=== PATIENT | female | born 1940 | race African-American/Black ===

== ENCOUNTER 2016-05-22 09:42 | Inpatient (IN) ==
[2016-05-22] MEDS ORDERED: methylPREDNISolone 125 MG/2 ML VIAL IVP ONE (09:54)
[2016-05-22] MEDS ORDERED: Ipratropium/Albuterol Neb 3 ML IH ONE (09:54)
[2016-05-22] MEDS ORDERED: Nitroglycerin 0.4 MG TAB.SUBL SL PRN ×2 (10:03→16:47)
--- NOTE | 2016-05-22 10:10 | Emergency Department Note ---
Disposition Clinical Impression: CHF exacerbation Qualifiers: Congestive heart failure type: unspecified congestive heart failure type Qualified Code(s): I50.9 - Heart failure, unspecified Disposition: Admitted As Inpatient Condition: Fair General Adult HPI - General Stated complaint: MICHAEL Time Seen by Provider: 05/22/16 09:51 Source: patient, family Limitations: no limitations Nursing Notes Reviewed: Yes Vital Signs Reviewed: Yes - History of Present Illness HPI Narrative: Patient here for evaluation of shortness of breath. Patient's shortness of breath started several days ago and was acutely worse just prior to arrival. Patient presents tachycardic and tachypnic and antihypertensive - Being able to speak in partial sentences. Patient has a history of COPD but has also been admitted in the past for CHF. Patient has been on BiPAP for but is unsure why. Pain Scale: 0 - Related Data Home Medications Medication Instructions Recorded Confirmed Amlodipine [Norvasc] 2.5 mg PO DAILY 11/12/14 05/22/16 Cranberry Fruit Extract/Vit C [Azo 1 each PO DAILY 11/12/14 05/22/16 Cranberry Softgel] Docusate Sodium [Colace] 100 mg PO BID PRN 11/12/14 05/22/16 Ergocalciferol (VITAMIN D2) 50,000 unit PO QWEEK 11/12/14 05/22/16 [Drisdol (50,000 Unit)] Exenatide Microspheres [Bydureon] 2 mg SQ QWEEK 11/12/14 05/22/16 Insulin LISPRO [Humalog Kwikpen 2 - 15 unit SQ ACHS 11/12/14 05/22/16 U-200] Levothyroxine [Synthroid] 125 mcg PO DAILY 11/12/14 05/22/16 Nitroglycerin 0.4 mg SL Q5MIN PRN 11/12/14 05/22/16 Potassium Effervescent [Klyte] 25 meq PO BID 11/12/14 05/22/16 Rosuvastatin [Crestor] 40 mg PO HS 11/12/14 05/22/16 Saccharomyces Boulardii [Probiotic] 250 mg PO DAILY 11/12/14 05/22/16 Budesonide/Formoterol 160/4.5 2 puff IH BID 05/22/16 05/22/16 [Symbicort 160/4.5] Calcitriol [Rocaltrol] 0.25 mcg PO DAILY 05/22/16 05/22/16 Dasatinib [Sprycel] 70 mg PO DAILY 05/22/16 05/22/16 Ferrous Sulfate [Iron] 325 mg PO DAILY 05/22/16 05/22/16 Isosorbide MONOnitrate [Isosorbide 120 mg PO DAILY 05/22/16 05/22/16 Mononitrate ER] Losartan Potassium [Cozaar] 100 mg PO DAILY 05/22/16 05/22/16 Metformin HCl [Metformin HCl ER] 500 mg PO DAILY 05/22/16 05/22/16 Metoprolol XL (24 HR) Succ [Toprol 100 mg PO BID 05/22/16 05/22/16 XL] Montelukast [Singulair] 10 mg PO DAILY 05/22/16 05/22/16 Ranitidine HCl [Heartburn Relief] 150 mg PO DAILY PRN 05/22/16 05/22/16 Rivaroxaban [Xarelto] 15 mg PO DAILY 05/22/16 05/22/16 Selenium 200 mcg PO DAILY 05/22/16 05/22/16 Previous Rx's Medication Instructions Recorded Furosemide [Lasix] 40 mg PO DAILY PRN #30 tablet 02/15/15 Folic Acid 1 mg PO DAILY #90 tablet 11/24/15 Acyclovir [Zovirax] 1 tab PO BID #180 tablet 12/24/15 Sucralfate [Carafate] 1 gm PO TID #90 tablet 04/12/16 Loperamide [Imodium] 2 mg PO BID #60 capsule 05/04/16 Allergies Allergy/AdvReac Type Severity Reaction Status Date / Time No Known Allergies Allergy Verified 05/22/16 09:53 All systems ED: reviewed and negative except as stated. Constitutional: Denies: fever, chills Cardiovascular: Reports: dyspnea on exertion. Denies: chest pain Respiratory: Reports: cough, dyspnea, wheezes Gastrointestinal: Denies: abdominal pain, nausea, vomiting Genitourinary: Denies: urgency, dysuria Musculoskeletal: Denies: back pain Integumentary: Denies: rash, abrasion, lesions Endocrine: Reports: fatigue Past Medical History - Past Medical History Medical history: Reports: asthma, cancer, CHF, COPD, diabetes, hyperlipidemia, hypertension, pulmonary embolus, other Surgical history: Reports: cholecystectomy, other Psychiatric history: Reports: anxiety, depression - Social History Smoking Status: Former smoker Alcohol use: Reports: none Drug use: Reports: none Physical Exam - General Limitations: no limitations General appearance: alert, in distress - Head Head exam: atraumatic, normocephalic - Eye Eye exam: Present: normal appearance - ENT ENT exam: normal exam, normal oropharynx - Neck Neck exam: Present: normal inspection, full ROM - Chest Chest inspection: Present: normal inspection. Absent: symmetric chest wall rise - Respiratory Respiratory exam: Present: normal lung sounds bilaterally, respiratory distress , wheezes - Cardiovascular Cardiovascular exam: Present: regular rate, normal rhythm - Abdominal Exam Abdominal exam: Present: soft, Non-Tender - Extremities Exam Extremities exam: Present: normal inspection. Absent: tenderness - Neurological Exam Neurological exam: Present: alert, oriented X3 - Psychiatric Psychiatric exam: Present: normal affect, normal mood - Skin Skin exam: Present: warm, dry Course Course Narrative: BiPAP and COPD medications ordered. Bedside chest x-ray shows diffuse interstitial edema. Sublingual nitroglycerin given. Will evaluate for possible need for nitro drip. - Reevaluation(s) Reevaluation #1: Bedside x-ray showing CHF. Patient's BiPAP and nitrates have improved symptoms as well as blood pressure. We will continue to watch. - Consultations Consultation #1: Discussed with Dr. Hutchinson. Pt accepted for admission. Vital Signs Temperature 0 F L 05/22/16 09:53 Pulse Rate 97 05/22/16 09:53 Respiratory Rate 32 05/22/16 09:53 Blood Pressure 198/90 05/22/16 09:53 O2 Sat by Pulse Oximetry 92 L 05/22/16 09:53 Temperature 98.0 F 05/22/16 13:16 Pulse Rate 98 05/22/16 13:16 Respiratory Rate 24 05/22/16 13:57 Blood Pressure 181/80 05/22/16 13:16 O2 Sat by Pulse Oximetry 92 L 05/22/16 13:57 Oxygen Delivery Oxygen Delivery Nasal Cannula Medical Decision Making - Medical Records Medical records reviewed: Yes I reviewed the patient's medical records. - Lab Data Lab results reviewed: Yes I reviewed the patient's lab results. Result diagrams: 05/22/16 11:15 05/22/16 11:15 Lab Results 05/22/16 05/22/16 05/22/16 Range/Units 11:15 11:15 11:15 WBC 8.3 D (4.3-11.1) K/mcL RBC 4.40 (3.82-4.97) M/mcL Hgb 12.0 (11.5-15.4) g/dL Hct 38.4 (35.3-44.9) % MCV 87.3 (83.0-100.0) fL MCH 27.3 L (28.0-33.3) pg MCHC 31.3 L (31.6-35.5) g/dL RDW 20.5 H (11.5-14.5) % Plt Count 218 (140-400) K/mcL MPV 9.8 (9.4-12.4) fL Immature Gran % 0.2 (0-4) % Seg Neutrophils % 78.1 % Lymphocytes % 12.0 % Monocytes % 8.4 % Eosinophils % 0.8 % Basophils % 0.5 % Neutrophils # 6.5 (1.6-8.9) K/mcL Lymphocytes # 1.0 (0.6-4.6) K/mcL Monocytes # 0.7 (0.0-1.3) K/mcL Eosinophils # 0.1 (0.0-0.6) K/mcL Basophils # 0.0 (0.0-0.2) K/mcL Immature Plt Fraction 5.3 (1.1-6.1) % Sodium 139 (136-145) mEq/L Potassium 3.4 L (3.5-4.5) mEq/L Chloride 106 (98-109) mEq/L Carbon Dioxide 23 (19-29) mEq/L BUN 16 (7-20) mg/dL Creatinine 0.86 (0.57-1.11) mg/dL Est GFR ( Amer) > 60 (> 60) Est GFR (Non-Af Amer) > 60 (> 60) BUN/Creatinine Ratio 19 (6-26) Glucose 176 H (70-99) mg/dL Calculated Osmolality 293 (280-300) Calcium 10.2 (8.6-10.8) mg/dL Troponin I 0.01 (0-0.03) ng/mL B-Natriuretic Peptide (0-100) pg/mL 05/22/16 Range/Units 11:15 WBC (4.3-11.1) K/mcL RBC (3.82-4.97) M/mcL Hgb (11.5-15.4) g/dL Hct (35.3-44.9) % MCV (83.0-100.0) fL MCH (28.0-33.3) pg MCHC (31.6-35.5) g/dL RDW (11.5-14.5) % Plt Count (140-400) K/mcL MPV (9.4-12.4) fL Immature Gran % (0-4) % Seg Neutrophils % % Lymphocytes % % Monocytes % % Eosinophils % % Basophils % % Neutrophils # (1.6-8.9) K/mcL Lymphocytes # (0.6-4.6) K/mcL Monocytes # (0.0-1.3) K/mcL Eosinophils # (0.0-0.6) K/mcL Basophils # (0.0-0.2) K/mcL Immature Plt Fraction (1.1-6.1) % Sodium (136-145) mEq/L Potassium (3.5-4.5) mEq/L Chloride (98-109) mEq/L Carbon Dioxide (19-29) mEq/L BUN (7-20) mg/dL Creatinine (0.57-1.11) mg/dL Est GFR ( Amer) (> 60) Est GFR (Non-Af Amer) (> 60) BUN/Creatinine Ratio (6-26) Glucose (70-99) mg/dL Calculated Osmolality (280-300) Calcium (8.6-10.8) mg/dL Troponin I (0-0.03) ng/mL B-Natriuretic Peptide 165 H (0-100) pg/mL - Radiology Data Radiology results reviewed: Yes I reviewed the patient's radiology results. - EKG Data EKG #1 EKG attestation: Yes I reviewed and interpreted this EKG. EKG results narrative: EKG shows sinus rhythm with ventricular rate of 96. ID 180. QRS 102. QTC 399. Patient has no significant ST elevation or depression. No changes from . Attestation Statement - Attestation Attestation: I examined this patient and my medical decision-making was reviewed with the SALES LEADER/PA/Advanced Practice Nurse/Resident Physician. I agree with the documented findings, disposition and treatment plan as described except to the extent set forth below. Patient emergency Department difficulty in breathing. Patient has a history of COPD but states she has never felt this bad. On examination she is tachypneic. Using accessory muscles. Hypoxic. Plan. Patient's x-ray appears to be fluid overloaded. She is tolerating BiPAP at this time. Breathing more comfortably. Cardiac labs still pending. Patient will be admitted to medicine. IV Lasix given. 30 minutes of critical care exclusively of separate billable procedures.
[2016-05-22 11:22] LABS: Basophils % 0.5 %; Eosinophils # 0.1 K/mcL (0.0-0.6); Eosinophils % 0.8 %; Hematocrit 38.4 % (35.3-44.9); Immature Granulocytes % 0.2 % (0-4); Immature Platelets 5.3 % (1.1-6.1); Mean Corpuscular HGB Conc 31.3 g/dL (31.6-35.5); Mean Corpuscular Hemoglobin 27.3 pg (28.0-33.3); Mean Corpuscular Volume 87.3 fL (83.0-100.0); Mean Platelet Volume 9.8 fL (9.4-12.4); Monocytes # 0.7 K/mcL (0.0-1.3); Monocytes % 8.4 %; Neutrophils # 6.5 K/mcL (1.6-8.9); Platelet Count 218 K/mcL (140-400); Red Cell Distribution Width 20.5 % (11.5-14.5); Segmented Neutrophils % 78.1 %
[2016-05-22 11:33] LABS: BUN/Creatinine Ratio 19 (6-26); Blood Urea Nitrogen 16 mg/dL (7-20); Calcium 10.2 mg/dL (8.6-10.8); Carbon Dioxide 23 mEq/L (19-29); Chloride 106 mEq/L (98-109); Glucose 176 mg/dL (70-99); Osmolality,Calculated 293 (280-300); Potassium 3.4 mEq/L (3.5-4.5); Sodium 139 mEq/L (136-145); eGFR For African Americans > 60 (> 60); eGFR For Non-African Americans > 60 (> 60)
[2016-05-22] MEDS ORDERED: *HR* Morphine 2 MG/ML SYRINGE IVP PRN (16:44)
[2016-05-22] MEDS ORDERED: Naloxone 0.4 MG/ML INJ IVP PRN (16:44)
[2016-05-22] MEDS ORDERED: *HR* Dextrose 50 % in Water (Syg) 50 ML SYRINGE IVP PRN (16:54)
[2016-05-22] MEDS ORDERED: D5% in Water 1,000 ML IV PRN (16:54)
[2016-05-22] MEDS ORDERED: Dextrose Gel 15 GM PO PRN ×2 (16:54)
--- NOTE | 2016-05-22 16:58 | Internal Med History&Physical ---
Date of Encounter: 05/22/16 Time of Encounter: 16:57 Assessment and Plan (1) Community acquired pneumonia Current visit: No Status: Acute Possible CAP: - Blood cultures - IV Levofloxacin. - Repeat Xrays in 48 hours for possible improvement/worsening. - will treat as CAP (2) COPD (chronic obstructive pulmonary disease) Current visit: No Status: Chronic Admit as inpatient IV antibiotics IV steroids BDAs close monitoring. Qualifiers: COPD type: unspecified COPD Qualified Code(s): J44.9 - Chronic obstructive pulmonary disease, unspecified (3) Hypertension Current visit: No Status: Chronic will resume home meds close monitoring of blood pressure. will send 3 troponin to rule out cardiac event. Qualifiers: Hypertension type: essential hypertension Qualified Code(s): I10 - Essential (primary) hypertension (4) Diabetes Current visit: No Status: Chronic SCSI ACHS anticipate elevated blood sugar as she is on steroids. Qualifiers: Diabetes mellitus type: type 2 Diabetes mellitus complication status: without complication Diabetes mellitus intermediate accountant insulin use: unspecified jail insulin use status Qualified Code(s): E11.9 - Type 2 diabetes mellitus without complications (5) Pulmonary embolism Current visit: No Status: Acute On xarelto DVT prophylaxis: Xarelto Medicl decision making : risk of worsening as she has multiple risk factors. Qualifiers: Pulmonary embolism type: other Chronicity: unspecified Acute cor pulmonale presence: without acute cor pulmonale Qualified Code(s): I26.99 - Other pulmonary embolism without acute cor pulmonale Internal Medicine - H&P: HPI Chief complaint: SOB Admitted From: Emergency Dept Plans for Post Hospital Care: Home History of present illness: PCP: Dr Lane Brief PMH: asthma, cancer, CHF, COPD, diabetes, hyperlipidemia, hypertension, pulmonary embolus HPI: The patient has ongoing respiratory symptoms for more than one week. He is working towards her symptoms have gradually worsened. This morning she was unable to breath. She also has a cough along with mucopurulent expectoration. Patient claims that there is a change in her phlegm color. Patient denies chest pain dizziness abdominal pain. Patient came to emergency room as it was very difficult breath and she was unable to speak complete sentences. Workup in the ER: Patient was given a BiPAP. Exogenous was done. Basic labs were done. Patient improved with the initial management. Reason for admission: Acute decompensated congestive heart failure likely secondary to the bronchitis/pulmonary infection. Family history noncontributory Past Med Surg Social Fam HX - Past Medical History Medical history: asthma, cancer, CHF, COPD, diabetes, hyperlipidemia, hypertension, pulmonary embolus, other Psychiatric history: anxiety, depression - Past Surgical History Surgical History: cholecystectomy, other - Social History Smoking Status: Former smoker Packs per day: 1 Smokeless Tobacco Status: No Alcohol use: none Drug use: none - Family History Father History Unknown: Yes Hx Family Endocrine Disorder: Yes (father had diabetes) Internal Medicine - H&P: Meds Amlodipine [Norvasc] 2.5 mg PO DAILY 11/12/14 [History] Cranberry Fruit Extract/Vit C [Azo Cranberry Softgel] 1 each PO DAILY 11/12/14 [ History] Docusate Sodium [Colace] 100 mg PO BID PRN 11/12/14 [History] Ergocalciferol (VITAMIN D2) [Drisdol (50,000 Unit)] 50,000 unit PO QWEEK [History] Exenatide Microspheres [Bydureon] 2 mg SQ QWEEK 11/12/14 [History] Insulin LISPRO [Humalog Kwikpen U-200] 2 - 15 unit SQ ACHS 11/12/14 [History] Levothyroxine [Synthroid] 125 mcg PO DAILY 11/12/14 [History] Nitroglycerin 0.4 mg SL Q5MIN PRN 11/12/14 [History] Potassium Effervescent [Klyte] 25 meq PO BID 11/12/14 [History] Rosuvastatin [Crestor] 40 mg PO HS 11/12/14 [History] Saccharomyces Boulardii [Probiotic] 250 mg PO DAILY 11/12/14 [History] Furosemide [Lasix] 40 mg PO DAILY PRN #30 tablet 02/15/15 [Rx] Folic Acid 1 mg PO DAILY #90 tablet 11/24/15 [Rx] Acyclovir [Zovirax] 1 tab PO BID #180 tablet 12/24/15 [Rx] Sucralfate [Carafate] 1 gm PO TID #90 tablet 04/12/16 [Rx] Loperamide [Imodium] 2 mg PO BID #60 capsule 05/04/16 [Rx] Budesonide/Formoterol 160/4.5 [Symbicort 160/4.5] 2 puff IH BID 05/22/16 [ History] Calcitriol [Rocaltrol] 0.25 mcg PO DAILY 05/22/16 [History] Dasatinib [Sprycel] 70 mg PO DAILY 05/22/16 [History] Ferrous Sulfate [Iron] 325 mg PO DAILY 05/22/16 [History] Isosorbide MONOnitrate [Isosorbide Mononitrate ER] 120 mg PO DAILY 05/22/16 [ History] Losartan Potassium [Cozaar] 100 mg PO DAILY 05/22/16 [History] Metformin HCl [Metformin HCl ER] 500 mg PO DAILY 05/22/16 [History] Metoprolol XL (24 HR) Succ [Toprol XL] 100 mg PO BID 05/22/16 [History] Montelukast [Singulair] 10 mg PO DAILY 05/22/16 [History] Ranitidine HCl [Heartburn Relief] 150 mg PO DAILY PRN 05/22/16 [History] Rivaroxaban [Xarelto] 15 mg PO DAILY 05/22/16 [History] Selenium 200 mcg PO DAILY 05/22/16 [History] Allergies No Known Allergies Allergy (Verified 05/22/16 09:53) All Systems PM: A 10-system review of systems was performed and is negative for pertinent findings except as documented above in the HPI. - Constitutional Constitutional: no chills, no fever(s), no night sweats - EENT Eyes: no change in vision, no discharge, no pain, no photophobia Ears: no ear discharge, no ear pain, no tinnitus Nose, mouth and throat: no dysphagia, no nasal discharge, no neck pain, no sore throat - Cardiovascular Cardiovascular ROS IM: no chest pain, no diaphoresis, no dyspnea, no lightheadedness, no palpitations, no syncope - Respiratory Respiratory: cough, dyspnea, wheezing, excessive phlegm production - Gastrointestinal Gastrointestinal: no abdominal pain, no diarrhea, no hematemesis, no hematochezia, no melena, no nausea, no vomiting - Genitourinary Genitourinary: no change in urinary stream, no dysuria, no flank pain, no hematuria - Musculoskeletal Musculoskeletal ROS IM: no numbness, no tingling - Integumentary Integumentary IM: no rash, no unusual bruising - Neurological Neurological ROS: no confusion, no convulsions, no focal weakness, no numbness, no tingling, no tremor(s) - Hematologic/Lymphatic Hematologic/Lymphatic: no easy bruising - Constitutional Vitals: Temp Pulse Resp BP Pulse Ox 98.0 F 98 20 181/80 93 L 05/22/16 13:16 05/22/16 13:16 05/22/16 13:16 05/22/16 13:16 05/22/16 13:16 General appearance: Present: mild distress, A&O X 3, pleasant, answers questions appropriately - Head Head exam: Present: atraumatic, normocephalic - Eye Eye exam: Present: PERRL, conjuntiva pink, sclera anicteric Pupils: Present: PERRL - Neck Neck exam general surgery: Present: supple, trachea midline. Absent: lymphadenopathy - Respiratory Respiratory exam: Present: CTAB. Absent: accessory muscle use, rales, rhonchi, wheezes - Cardiovascular Cardiovascular exam: Present: RRR, +S1, +S2. Absent: diastolic murmur, gallop, rubs, systolic murmur - GI/Abdominal GI/Abdominal exam: Present: normal bowel sounds, soft, no peritoneal signs. Absent: distended, tenderness - Extremities Exam Extremities exam: Present: warm, radial pulses palpable and symetrical. Absent : calf tenderness, cyanotic, pedal edema - Neurological Exam Neurological exam: Present: CN II-XII intact, oriented X3, no focal deficits. Absent: pronater drift, facial droop, speech deficit - Skin Skin exam: Present: dry, intact Internal Med - H&P Results - Labs CBC & Chem 7: 05/22/16 11:15 05/22/16 11:15
[2016-05-22] MEDS ORDERED: INSULIN LISPRO SQ SCH (17:00)
[2016-05-22] MEDS ORDERED: Insulin LISPRO 300 UNITS/3 ML VIAL SQ ONE (17:52)
[2016-05-22] MEDS: Insulin LISPRO 300 UNITS/3 ML VIAL SQ SCH (17:56)
[2016-05-22] MEDS: Ipratropium/Albuterol Neb 3 ML IH SCH (20:01)
[2016-05-22] MEDS: Furosemide 40 MG/4 ML VIAL IVP SCH (20:13)
[2016-05-22] MEDS: Sucralfate 1 GM TABLET PO SCH (20:14)
[2016-05-22] MEDS: Levofloxacin 750 MG/150 ML 750 MG/150 ML BAG IVPB SCH (20:14)
[2016-05-22] MEDS: Metoprolol XL (24 HR) Succ 50 MG TAB.ER.24H PO SCH (20:14)
[2016-05-22] MEDS: Acyclovir 200 MG CAPSULE PO SCH (20:14)
[2016-05-22] MEDS: Potassium Effervescent 25 MEQ TABLET.EFF PO SCH (20:28)
[2016-05-22] MEDS: MethylPREDNISolone 40 MG/ML VIAL IVP SCH (23:38)
[2016-05-23] MEDS: Ipratropium/Albuterol Neb 3 ML IH SCH ×6 (00:17→20:56)
[2016-05-23] MEDS ORDERED: Acetaminophen 325 MG TABLET PO PRN ×2 (00:33→12:14)
[2016-05-23] MEDS: Acyclovir 200 MG CAPSULE PO SCH ×2 (07:42→20:43)
[2016-05-23] MEDS: Metoprolol XL (24 HR) Succ 50 MG TAB.ER.24H PO SCH ×2 (07:42→20:43)
[2016-05-23] MEDS: amLODIPine 5 MG TABLET PO SCH (07:43)
[2016-05-23] MEDS: *HR* Rivaroxaban 15 MG TABLET PO SCH (07:43)
[2016-05-23] MEDS: Isosorbide MONOnitrate (24 HR) 60 MG TAB.ER.24H PO SCH (07:43)
[2016-05-23] MEDS: MethylPREDNISolone 40 MG/ML VIAL IVP SCH ×3 (07:44→23:26)
[2016-05-23] MEDS: Furosemide 40 MG/4 ML VIAL IVP SCH ×2 (07:44→16:52)
[2016-05-23] MEDS: Insulin LISPRO 300 UNITS/3 ML VIAL SQ SCH ×4 (07:44→20:59)
[2016-05-23] MEDS: Sucralfate 1 GM TABLET PO SCH ×2 (07:44→17:01)
[2016-05-23] MEDS: Potassium Effervescent 25 MEQ TABLET.EFF PO SCH ×2 (07:45→20:43)
[2016-05-23] MEDS: Levofloxacin 750 MG/150 ML 750 MG/150 ML BAG IVPB SCH (07:45)
--- NOTE | 2016-05-23 08:06 | Internal Med Progress Note ---
<Reyes Hunt - Last Filed: 05/23/16 13:57> Date of Encounter: 05/23/16 Time of Encounter: 08:06 - Assessment and plan (1) Community acquired pneumonia Current Visit: No Status: Acute Assessment and plan: 05/23/16 Significant clinical improvement Continue antibiotics 05/22/16 Possible CAP: - Blood cultures - IV Levofloxacin. - Repeat Xrays in 48 hours for possible improvement/worsening. - will treat as CAP (2) COPD (chronic obstructive pulmonary disease) Current Visit: No Status: Chronic Assessment and plan: 05/23/16 O2 saturation stable Continue duo nebs/Solu-Medrol Continue monitor 05/22/16 Admit as inpatient IV antibiotics IV steroids BDAs close monitoring. Qualifiers: COPD type: unspecified COPD Qualified Code(s): J44.9 - Chronic obstructive pulmonary disease, unspecified (3) Hypertension Current Visit: No Status: Chronic Assessment and plan: 05/23/16 Blood pressure has been stable Troponins not elevated 05/22/16 will resume home meds close monitoring of blood pressure. will send 3 troponin to rule out cardiac event. Qualifiers: Hypertension type: essential hypertension Qualified Code(s): I10 - Essential (primary) hypertension (4) Diabetes Current Visit: No Status: Chronic Assessment and plan: 05/22/16 SCSI ACHS anticipate elevated blood sugar as she is on steroids. Qualifiers: Diabetes mellitus type: type 2 Diabetes mellitus complication status: without complication Diabetes mellitus terminal press operator insulin use: unspecified assisted insulin use status Qualified Code(s): E11.9 - Type 2 diabetes mellitus without complications (5) Pulmonary embolism Current Visit: No Status: Acute Assessment and plan: Continues Xarelto Qualifiers: Pulmonary embolism type: other Chronicity: unspecified Acute cor pulmonale presence: without acute cor pulmonale Qualified Code(s): I26.99 - Other pulmonary embolism without acute cor pulmonale (6) DVT prophylaxis Current Visit: No Status: Acute Assessment and plan: On Xarelto - Subjective Interval history: Patient was seen and examined at bedside. She was sitting on the side of her bed in no acute distress. She says she is still experiencing some dyspnea although this is significantly improved relative to presentation. We discussed her recent diagnosis of leukemia, she follows with [facility]. She denies chest pain, abdominal pain or any new complaints. - Constitutional Vitals: Temp Pulse Resp BP Pulse Ox 98 F 78 16 150/77 99 05/23/16 07:22 05/23/16 07:22 05/23/16 07:37 05/23/16 07:22 05/23/16 07:37 General appearance: Present: mild distress, A&O X 3, pleasant, answers questions appropriately - Head Head exam: Present: atraumatic, normocephalic - Eye Eye exam: Present: PERRL, conjuntiva pink, sclera anicteric Pupils: Present: PERRL - Neck Neck exam general surgery: Present: supple, trachea midline. Absent: lymphadenopathy - Respiratory Respiratory exam: Present: decreased breath sounds, CTAB. Absent: accessory muscle use, rales, rhonchi, wheezes - Cardiovascular Cardiovascular exam: Present: RRR, +S1, +S2. Absent: diastolic murmur, gallop, rubs, systolic murmur - GI/Abdominal GI/Abdominal exam: Present: normal bowel sounds, soft, no peritoneal signs. Absent: distended, tenderness - Extremities Exam Extremities exam: Present: warm, radial pulses palpable and symetrical. Absent : calf tenderness, cyanotic, pedal edema - Neurological Exam Neurological exam: Present: CN II-XII intact, oriented X3, no focal deficits. Absent: pronater drift, facial droop, speech deficit - Skin Skin exam: Present: dry, intact Internal Medicine: Result - Labs CBC & Chem 7: 05/23/16 09:04 05/23/16 09:04 Labs: Cardiac Enzymes 05/22/16 05/22/16 Range/Units 17:11 23:00 Troponin I 0.00 0.00 (0-0.03) ng/mL - ABG Interpretation ABG results: PT/INR, D-dimer D-Dimer 939 ng/mLFEU (0-500) H 05/22/16 17:11 Consult Discharge Plan - Plan Referrals: Jeffery Lane MD [Primary Care Provider] - 05/30/16 3:00 pm () <Paul Hutchinson - Last Filed: 05/23/16 17:46> Date of Encounter: 05/23/16 - Assessment and plan (1) Community acquired pneumonia Current Visit: No Status: Acute (2) COPD (chronic obstructive pulmonary disease) Current Visit: No Status: Chronic Qualifiers: COPD type: unspecified COPD Qualified Code(s): J44.9 - Chronic obstructive pulmonary disease, unspecified (3) Hypertension Current Visit: No Status: Chronic Qualifiers: Hypertension type: essential hypertension Qualified Code(s): I10 - Essential (primary) hypertension (4) Diabetes Current Visit: No Status: Chronic Qualifiers: Diabetes mellitus type: type 2 Diabetes mellitus complication status: without complication Diabetes mellitus assisted insulin use: unspecified terminal press operator insulin use status Qualified Code(s): E11.9 - Type 2 diabetes mellitus without complications (5) Pulmonary embolism Current Visit: No Status: Acute Qualifiers: Pulmonary embolism type: other Chronicity: unspecified Acute cor pulmonale presence: without acute cor pulmonale Qualified Code(s): I26.99 - Other pulmonary embolism without acute cor pulmonale - Constitutional Vitals: Temp Pulse Resp BP Pulse Ox 98.0 F 84 18 127/65 98 05/23/16 16:13 05/23/16 16:13 05/23/16 16:13 05/23/16 16:13 05/23/16 16:13 Internal Medicine: Result - Labs CBC & Chem 7: 05/23/16 09:04 05/23/16 09:04 Labs: Short CBC 05/23/16 Range/Units 09:04 WBC 5.2 (4.3-11.1) K/mcL Hgb 11.3 L (11.5-15.4) g/dL Hct 34.2 L (35.3-44.9) % Plt Count 249 (140-400) K/mcL Neutrophils # 4.3 (1.6-8.9) K/mcL BMP 05/23/16 09:04 Sodium 137 Potassium 3.4 L Chloride 102 Carbon Dioxide 21 BUN 20 Creatinine 1.03 Glucose 327 H Calcium 9.6 Cardiac Enzymes 05/22/16 05/22/16 05/23/16 Range/Units 17:11 23:00 09:04 Troponin I 0.00 0.00 0.01 (0-0.03) ng/mL Liver Function 05/23/16 Range/Units 09:04 Total Bilirubin 0.7 (0.2-1.2) mg/dL AST 9 (5-34) Units/L ALT 16 (0-55) Units/L Alkaline Phosphatase 117 (38-126) Units/L Albumin 3.6 (3.5-5.0) g/dL - ABG Interpretation ABG results: PT/INR, D-dimer D-Dimer 939 ng/mLFEU (0-500) H 05/22/16 17:11 - Attending Attestation I examined this patient and my medical decision-making was reviewed with the ACCOUNT RECEIVABLE CLERK/PA/Advanced Practice Nurse/Resident Physician. I agree with the documented findings, disposition and treatment plan as described except to the extent set forth below. oncology review possible home tomorrow
[2016-05-23] MEDS ORDERED: Levofloxacin 750 MG/150 ML 750 MG/150 ML BAG IVPB SCH (09:00)
[2016-05-23] MEDS: [UNRECOGNIZED DRUG - OTHER] PO SCH (09:34)
[2016-05-23 09:46] LABS: Hematocrit 34.2 % (35.3-44.9); Hemoglobin 11.3 g/dL (11.5-15.4); Immature Granulocytes % 0.6 % (0-4); Lymphocytes # 0.6 K/mcL (0.6-4.6); Lymphocytes % 10.7 %; Mean Corpuscular Hemoglobin 27.8 pg (28.0-33.3); Mean Corpuscular Volume 84.2 fL (83.0-100.0); Mean Platelet Volume 10.9 fL (9.4-12.4); Monocytes # 0.3 K/mcL (0.0-1.3); Monocytes % 5.6 %; Neutrophils # 4.3 K/mcL (1.6-8.9); Platelet Count 249 K/mcL (140-400); Red Blood Count 4.06 M/mcL (3.82-4.97); Red Cell Distribution Width 20.5 % (11.5-14.5); Segmented Neutrophils % 83.1 %
[2016-05-23 10:02] LABS: Alanine Aminotransferase 16 Units/L (0-55); Albumin 3.6 g/dL (3.5-5.0); Albumin/Globulin Ratio 0.9 (1.1-2.2); Alkaline Phosphatase 117 Units/L (38-126); Aspartate Amino Transferase 9 Units/L (5-34); BUN/Creatinine Ratio 19 (6-26); Bilirubin,Total 0.7 mg/dL (0.2-1.2); Blood Urea Nitrogen 20 mg/dL (7-20); Calcium 9.6 mg/dL (8.6-10.8); Carbon Dioxide 21 mEq/L (19-29); Chloride 102 mEq/L (98-109); Chol/HDL Ratio 2.8 (0-4.9); Cholesterol 132 mg/dL (< 200); Globulin 4.2 g/dL (2.4-3.5); Glucose 327 mg/dL (70-99); HDL Cholesterol 47 mg/dL (40-59); LDL Cholesterol,Calculated 67 mg/dL (0-99); Magnesium 1.6 mg/dL (1.6-2.6); Osmolality,Calculated 299 (280-300); Phosphorous 2.1 mg/dL (2.3-4.7); Potassium 3.4 mEq/L (3.5-4.5); Sodium 137 mEq/L (136-145); Total Protein 7.8 g/dL (6.0-8.3); Triglycerides 88 mg/dL (< 150); eGFR For African Americans > 60 (> 60); eGFR For Non-African Americans 53 (> 60)
--- NOTE | 2016-05-23 12:09 | ECHO - Doppler Report ---
Echocardiogram Name: Adriana Sanchez Date of Study: 05/23/2016 Date: 1940 Ht: 62.0 in Medical Record#: [id number] Age: 75 Wt: 184.0 lb Gender: Female BSA: 1.84 Order #: [id number] Location: [facility] Room #: 2A16 Reading Physician: Bhumi Aviles DO Sales Representative Raw Fibers: Reyes Simeon RN Ordering Physician: Paul Hutchinosn MD Primary Physician: Jeffery Lane MD Indications: Congestive heart failure Impressions: LVEF 60-65%. Normal left ventricular size and systolic function. There is evidence of moderate diastolic dysfunction of the left ventricle. Mild concentric hypertrophy of the left ventricle. Normal right ventricular size and function. Severely enlarged left atrial size. Moderate mitral regurgitation. Mild tricuspid regurgitation. Estimated RVSP was 43 mmHg. Mild pulmonary hypertension. Left Ventricular Wall Motion: Rest Echo Findings All wall segments showed normal motion. Findings: Study Quality * Technically sub-optimal due to COPD. ECG Findings * Normal sinus rhythm. Mitral Valve * Mildly calcified mitral valve leaflets. * Moderate mitral annular calcification * Borderline mitral stenosis. * Moderate mitral regurgitation. Left Ventricle * LVEF 60-65%. * Moderate left ventricular diastolic dysfunction. * Mild concentric left ventricular hypertrophy. Tricuspid Valve * Normal tricuspid valve structure. * Mild tricuspid regurgitation. * Estimated RA pressure is 3 mmHg. * Estimated RVSP is 43 mmHg. * Mild pulmonary hypertension. Pulmonic Valve * Pulmonic valve is not well visualized. * No pulmonic stenosis. * No pulmonic regurgitation. Pulmonary Artery * Pulmonary artery not well visualized. Aortic Valve * Aortic valve not well visualized. Right Ventricle * Normal right ventricular structure and function. Right Atrium * Normal right atrial size. Left Atrium * Severely dilated left atrium. Interatrial Septum * No evidence of PFO by color Doppler. IVC * Normal IVC dimensions and inspiratory collapse. Pericardium * There is no pericardial effusion present. Aorta * Suboptimally evaluated. History Hypertension Diabetes Hypercholesteremia Rheumatic Fever Years 52 Packs 1 Family History of CAD Congestive Heart Failure Valvular Disease 12/21/2014 a Previous Echo was performed. Measurements: BP: 150/ 77 2D Normal Values IVSd: 1.30 cm 0.6 - 1.0 cm LVIDd: 4.30 cm 3.7 - 5.6 cm LVPWd: 1.30 cm 0.6 - 1.1 cm LVIDs: 2.80 cm 1.5 - 3.6 cm LA: 4.40 cm 2.0 - 4.0cm %FS: 34.90 cm >25 % LVOT Diam: 1.50 cm LA volume: 156 Mitral Valve Peak Velocity 1.74 m/sec Mean Velocity:1.00 m/sec Peak Grad:12.00 mmHg Mean Grad:4.00 mmHg Peak E:1.29 m/sec Peak A:.99 m/sec E/A Ratio:1.3 Peak E' Lat Eris:4 cm/s Peak E' Med Eris:3.8 cm/s E/E' Lat Ratio:32.3 E/E' Med Ratio:33.9 Tricuspid Valve TV Regurg Peak Grad: 40.00mmHg TV Regurg Peak Eris: 3.16m/sec Updated by Bhumi Aviles on 05/23/2016 12:04:12 PM electronically signed on 05/23/2016 12:05:24 PM with status of Final Wall Motion Bearden: 1=Normal, 2=Hypokinesis, 3=Akinesis, 4=Dyskinesis, 5=Aneurysmal, 6=Hyperkinetic, X=Not Visualized (Blank)=Missing
--- NOTE | 2016-05-23 12:13 | Electrocardiograph Report ---
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
--- NOTE | 2016-05-23 14:11 | Oncology Inp Consult Note ---
<Nicole Helms E - Last Filed: 05/23/16 14:36> Date of Encounter: 05/23/16 Time of Encounter: 13:10 - Data of Consult Patient: known to practice within the last 3 years Consult date: 05/23/16 Requesting Physician: Paul Hutchinson MD Primary Care Provider: Jeffery Lane MD - Consult Narrative Reason for consult: CML, pulmonary edema History of present illness: Ms. Sanchez is a 75 year old female patient of Brannon Garcia currently being treated for CLL. She was admitted to the [facility] on 05/22/2016 for her severe shortness of breath. She reports that shortness of breath and present for about 3 days and had gradually increased. She states the morning of admission she was short of breath she can barely say a few words could not complete a sentence she also had developed a yellowish mucus expectorated. She states that her breathing has presents starting steroids, breathing treatments, antibiotics and Lasix. While in the ED she was given BIPAP. He was 165, d-dimer 939, in 1112, white blood cell count 8.3 and platelets 218,000. Her chest x-ray indicated bilateral pulmonary edema with possible small left pleural effusion. Most recent treatment has been given for CML she has been taking dasatinib 70 mg by mouth daily. Oncology history per Dr. Barnes's last clinic note: In July 2013 she was diagnosed with multiple myeloma IgG. Staging 2. 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 Skeletal survey was done on 07/17/2013 showed widespread lytic lesions including the calvarium. A bone marrow biopsy on 07/24/2013 showed plasma cell myeloma 20% positive for CD38, CD138. Initial treatment which started with Decadron 20 mg by mouth weekly on 2013 included Velcade twice a week regimen. From cycle 2 treatment was changed to CyBorD with cyclophosphamide 200 mg IV per meter square with Velcade 1.3 mg per metered squared and Decadron 20 mg by mouth. Was given on day 1, 8, [address] cycle[address] He might Dr. Malik Decker at [facility] for peripheral blood stem cell transplant possibility however pristine that she was not a candidate. On 12/16/2013 treatment changed to R VID with cycle one starting at that time. This included Revlimid 25 mg by mouth day 1 through 14 of a 21 day cycle, Velcade 1.3 g per metered square on day 1, day 8, and 15 with Decadron 20 mg by mouth weekly. Revlimid caused significant headaches. The dose was reduced to 15 mg she continued to have a headache therefore it was further reduced to 10 mg. She had a good response with her monoclonal protein being down to 1 g in January 2014 and her light chain had decreased by half. Because the headaches the Revlimid was switched to the following. High-dose Carfilzomib 36 mg per metered squared and increased to 45 mg per metered squared from the second week. This is given day 1 and 2 weekly for 3 weeks with 1 week off. Was given on 03/24/2014 during cycle 2 on 04/28/2012 she was hospitalized twice for congestive heart failure symptoms and a BNP elevated to 1200. She also had pneumonia. Cycle 3 Carfilzomib is reduced to standard dosing. She tolerated this well. Her monoclonal protein and increased to 1.3 g in May 2014 and light chains increased to 320. At that time, Pomalidomide 2 mg per mouth days 1 through 21 of a 28 day cycle was started. She responded to this combination well monoclonal protein decreased to 0.4 g on 08/11/2014 and her Light chain decreased to 79. 2014 she was switched to single agent maintenance, Pomalidomide 2 mg by mouth day 1 through 28 of a 28 day cycle. She continued on this medication until March 2016. Medication was stopped at that time secondary to the development of CML with blast crisis. 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 February 2016 and went up to 18,000 with elevated neutrophils with elevated monocytes. Also mildly elevated eosinophils and basophils. Platelet count had increased to 630, 000. On by indicated atypical immature monocytes and increased blasts consistent with chronic myelogenous leukemia and/or chronic myelomonocytic leukemia or other myeloproliferative or myelodysplastic process. Bone marrow aspirate indicated greater than 20% blasts consistent with blasts from transformation of CML or acute myeloid leukemia. Flow cytometry confirmed myeloid blasts which were CD33 and CD34 which were greater than 20% compatible with acute myeloid leukemia blast transformation of chronic myelogenous leukemia. Cytogenics were positive for's BCR ABL consistent with CML with blast crisis. She was started on dasatinib 140 mg by mouth daily. She was evaluated by Dr. Hannah Ibarra [facility]. He took this and 140 mg daily from 04/20/2016 to 04/30/2016. It was stopped secondary to grade 3 diarrhea. Diarrhea was controlled with Imodium. As restarted at half the dose to 70 mg with the goal to slowly increase to 100 mg as tolerated. Her CBC on 04/27/2016, showed some improvement with reduction in an neutrophils and monocyte count to 2500 and a hemoglobin that was normal at 13. Stage I right breast cancer in 2008 She had a lumpectomy followed by 4 cycles of TC which was finishing 2008. She also had whole breast radiation in 2008 and in February 2009 Mr. on Arimidex. She took Arimidex for 4-1/2 years in her recommendation Dr. Decker she stopped this medication in July 2013. Extensive bilateral pulmonary emboli 2012May 24 2012, she was diagnosed with bilateral extensive pulmonary embolism with right lower extremity DVT. She was on Lovenox for a short duration and then switched to Xarelto 20 mg a day. Secondary to anemia dose was reduced to 15 mg a day. 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 With this she did have an improvement of her hemoglobin. Past Med Surg Social Fam HX - Past Medical History Medical history: asthma, cancer (Right breast cancer, multiple myeloma), CHF, COPD, DVT (Bilateral pulmonary emboli), diabetes, hyperlipidemia, hypertension, pulmonary embolus, other (In lytic anemia, nonspecific mediastinal adenopathy, a lingular nodule, recurrent pneumonia, hypothyroidism, peripheral vascular disease, sleep apnea.) Psychiatric history: anxiety, depression - Past Surgical History Surgical History: cholecystectomy, other (D&C, lumpectomy in 2008, 2015 cystoscopy) - Social History Smoking Status: Former smoker Packs per day: 1 Smokeless Tobacco Status: No Alcohol use: none Drug use: none Occupational status: retired Current living situation: Home Recent Out of Country Travel Within the Last 8 Weeks: No Exposure or Possible Exposure to Illness During Travel: No - Family History Father History Unknown: Yes Hx Family Endocrine Disorder: Yes (father had diabetes) Medications and Allergies Amlodipine [Norvasc] 2.5 mg PO DAILY 11/12/14 [History] Cranberry Fruit Extract/Vit C [Azo Cranberry Softgel] 1 each PO DAILY 11/12/14 [ History] Docusate Sodium [Colace] 100 mg PO BID PRN 11/12/14 [History] Ergocalciferol (VITAMIN D2) [Drisdol (50,000 Unit)] 50,000 unit PO QWEEK [History] Exenatide Microspheres [Bydureon] 2 mg SQ QWEEK 11/12/14 [History] Insulin LISPRO [Humalog Kwikpen U-200] 2 - 15 unit SQ ACHS 11/12/14 [History] Levothyroxine [Synthroid] 125 mcg PO DAILY 11/12/14 [History] Nitroglycerin 0.4 mg SL Q5MIN PRN 11/12/14 [History] Potassium Effervescent [Klyte] 25 meq PO BID 11/12/14 [History] Rosuvastatin [Crestor] 40 mg PO HS 11/12/14 [History] Saccharomyces Boulardii [Probiotic] 250 mg PO DAILY 11/12/14 [History] Furosemide [Lasix] 40 mg PO DAILY PRN #30 tablet 02/15/15 [Rx] Folic Acid 1 mg PO DAILY #90 tablet 11/24/15 [Rx] Acyclovir [Zovirax] 1 tab PO BID #180 tablet 12/24/15 [Rx] Sucralfate [Carafate] 1 gm PO TID #90 tablet 04/12/16 [Rx] Loperamide [Imodium] 2 mg PO BID #60 capsule 05/04/16 [Rx] Budesonide/Formoterol 160/4.5 [Symbicort 160/4.5] 2 puff IH BID 05/22/16 [ History] Calcitriol [Rocaltrol] 0.25 mcg PO DAILY 05/22/16 [History] Dasatinib [Sprycel] 70 mg PO DAILY 05/22/16 [History] Ferrous Sulfate [Iron] 325 mg PO DAILY 05/22/16 [History] Isosorbide MONOnitrate [Isosorbide Mononitrate ER] 120 mg PO DAILY 05/22/16 [ History] Losartan Potassium [Cozaar] 100 mg PO DAILY 05/22/16 [History] Metformin HCl [Metformin HCl ER] 500 mg PO DAILY 05/22/16 [History] Metoprolol XL (24 HR) Succ [Toprol XL] 100 mg PO BID 05/22/16 [History] Montelukast [Singulair] 10 mg PO DAILY 05/22/16 [History] Ranitidine HCl [Heartburn Relief] 150 mg PO DAILY PRN 05/22/16 [History] Rivaroxaban [Xarelto] 15 mg PO DAILY 05/22/16 [History] Selenium 200 mcg PO DAILY 05/22/16 [History] Allergies No Known Allergies Allergy (Verified 05/22/16 09:53) Constitutional: Present: fatigue Respiratory: Present: dyspnea (Which is improving with current treatment) Musculoskeletal: Present: muscle weakness (generalized) Oncology - Exam - Constitutional Vitals: Temp Pulse Resp BP Pulse Ox 98.3 F 87 18 126/62 99 05/23/16 11:48 05/23/16 11:48 05/23/16 11:48 05/23/16 11:48 05/23/16 11:48 General appearance: cooperative, no acute distress - Head Head exam: Present: normocephalic - ENT ENT exam: Present: mucous membranes moist - Neck Neck exam: Present: normal inspection - Respiratory Respiratory exam: Present: decreased breath sounds - Cardiovascular Cardiovascular exam: Present: RRR - GI/Abdominal GI/Abdominal exam: Present: normal bowel sounds, soft (Nontender) - Extremities Exam Extremities exam: Present: normal inspection (no edema) - Neurological Exam Neurological exam: Present: alert, oriented X3 - Psychiatric Psychiatric exam: Present: normal affect, normal mood Oncology - Results - Labs Labs: Short CBC 05/23/16 Range/Units 09:04 WBC 5.2 (4.3-11.1) K/mcL Hgb 11.3 L (11.5-15.4) g/dL Hct 34.2 L (35.3-44.9) % Plt Count 249 (140-400) K/mcL Neutrophils # 4.3 (1.6-8.9) K/mcL BMP 05/23/16 09:04 Sodium 137 Potassium 3.4 L Chloride 102 Carbon Dioxide 21 BUN 20 Creatinine 1.03 Glucose 327 H Calcium 9.6 Cardiac Enzymes 05/22/16 05/22/16 05/23/16 Range/Units 17:11 23:00 09:04 Troponin I 0.00 0.00 0.01 (0-0.03) ng/mL Liver Function 05/23/16 Range/Units 09:04 Total Bilirubin 0.7 (0.2-1.2) mg/dL AST 9 (5-34) Units/L ALT 16 (0-55) Units/L Alkaline Phosphatase 117 (38-126) Units/L Albumin 3.6 (3.5-5.0) g/dL Consult Discharge Plan - Plan Referrals: Jeffery Lane MD [Primary Care Provider] - 05/30/16 3:00 pm () <Brannon Barnes S - Last Filed: 05/24/16 08:50> Date of Encounter: 05/24/16 - Data of Consult Requesting Physician: Paul Hutchinson MD Primary Care Provider: Jeffery Lane MD - Consult Narrative History of present illness: Ms. Sanchez is a 75 year old female Oncology - Exam - Constitutional Vitals: Temp Pulse Resp BP Pulse Ox 98.0 F 84 18 127/65 98 05/23/16 16:13 05/23/16 16:13 05/23/16 16:13 05/23/16 16:13 05/23/16 16:13 Oncology - Results - Labs Labs: Short CBC 05/23/16 Range/Units 09:04 WBC 5.2 (4.3-11.1) K/mcL Hgb 11.3 L (11.5-15.4) g/dL Hct 34.2 L (35.3-44.9) % Plt Count 249 (140-400) K/mcL Neutrophils # 4.3 (1.6-8.9) K/mcL BMP 05/23/16 09:04 Sodium 137 Potassium 3.4 L Chloride 102 Carbon Dioxide 21 BUN 20 Creatinine 1.03 Glucose 327 H Calcium 9.6 Cardiac Enzymes 05/22/16 05/23/16 Range/Units 23:00 09:04 Troponin I 0.00 0.01 (0-0.03) ng/mL Liver Function 05/23/16 Range/Units 09:04 Total Bilirubin 0.7 (0.2-1.2) mg/dL AST 9 (5-34) Units/L ALT 16 (0-55) Units/L Alkaline Phosphatase 117 (38-126) Units/L Albumin 3.6 (3.5-5.0) g/dL - Attending Attestation 1. Shortness of breath. Admitted with exacerbation of COPD and CHF. BMP 240 Echocardiogram showed ejection fraction 60 to 65%. Normal systolic function but diastolic dysfunction present Severely enlarged left atrium 2. CML accelerated phase on dasatinib It is unlikely dasatinib is causing her shortness of breath. Her systolic function is normal. Dasatinib can cause peripheral edema and left ventricle dysfunction but it is usually milder compacted nilotinib. She has already shown response with a normal neutrophil count and monocyte count. The plan is to continue dasatinib current dose 70 mg daily. 3. Multiple myeloma post multiple lines of treatment. Currently off treatment for myeloma and her myeloma is not active 4. Autoimmune hemolytic anemia. She received weekly Rituxan 8 doses. Her hemoglobin has come up and currently stable between 11 and 12
[2016-05-23] MEDS ORDERED: *HR* LORazepam 0.5 MG TABLET PO ONE (20:05)
[2016-05-24] MEDS: Ipratropium/Albuterol Neb 3 ML IH SCH ×7 (00:24→23:33)
[2016-05-24 07:10] LABS: BUN/Creatinine Ratio 35 (6-26); Calcium 9.6 mg/dL (8.6-10.8); Carbon Dioxide 23 mEq/L (19-29); Chloride 103 mEq/L (98-109); Glucose 275 mg/dL (70-99); Osmolality,Calculated 306 (280-300); Potassium 3.7 mEq/L (3.5-4.5); Sodium 139 mEq/L (136-145); eGFR For African Americans > 60 (> 60); eGFR For Non-African Americans 51 (> 60)
[2016-05-24 07:13] LABS: Blood Urea Nitrogen 37 mg/dL (7-20)
[2016-05-24 07:24] LABS: Hemoglobin 11.1 g/dL (11.5-15.4); Mean Corpuscular HGB Conc 32.6 g/dL (31.6-35.5); Mean Corpuscular Hemoglobin 27.8 pg (28.0-33.3); Mean Corpuscular Volume 85.2 fL (83.0-100.0); Red Blood Count 3.99 M/mcL (3.82-4.97); Red Cell Distribution Width 21.1 % (11.5-14.5)
[2016-05-24 07:25] LABS: Immature Granulocytes % 0.6 % (0-4); Lymphocytes # 0.7 K/mcL (0.6-4.6); Lymphocytes % 10.3 %; Mean Platelet Volume 10.4 fL (9.4-12.4); Monocytes # 0.3 K/mcL (0.0-1.3); Monocytes % 4.4 %; Neutrophils # 5.9 K/mcL (1.6-8.9); Platelet Count 273 K/mcL (140-400); Segmented Neutrophils % 84.7 %
[2016-05-24] MEDS: [UNRECOGNIZED DRUG - OTHER] PO SCH (08:25)
[2016-05-24] MEDS: *HR* Rivaroxaban 15 MG TABLET PO SCH (08:26)
[2016-05-24] MEDS: MethylPREDNISolone 40 MG/ML VIAL IVP SCH ×2 (08:26→16:55)
[2016-05-24] MEDS: Acyclovir 200 MG CAPSULE PO SCH ×2 (08:26→21:07)
[2016-05-24] MEDS: Isosorbide MONOnitrate (24 HR) 60 MG TAB.ER.24H PO SCH (08:26)
[2016-05-24] MEDS: Furosemide 40 MG/4 ML VIAL IVP SCH (08:26)
[2016-05-24] MEDS: Sucralfate 1 GM TABLET PO SCH ×3 (08:27→16:18)
[2016-05-24] MEDS: Metoprolol XL (24 HR) Succ 50 MG TAB.ER.24H PO SCH ×2 (08:28→21:10)
[2016-05-24] MEDS: amLODIPine 5 MG TABLET PO SCH (08:28)
[2016-05-24] MEDS: Potassium Effervescent 25 MEQ TABLET.EFF PO SCH ×2 (08:29→21:06)
[2016-05-24] MEDS: Insulin LISPRO 300 UNITS/3 ML VIAL SQ SCH ×4 (08:30→22:18)
[2016-05-24] MEDS: Levofloxacin 750 MG/150 ML 750 MG/150 ML BAG IVPB SCH (08:32)
[2016-05-24] MEDS ORDERED: ALPRAZolam 0.25 MG TABLET PO ONE (09:36)
[2016-05-24] MEDS ORDERED: *HR* OxyCODONE Immed Rel 5 MG TABLET PO PRN (11:49)
--- NOTE | 2016-05-24 15:18 | Internal Med Progress Note ---
<Denita Rivera - Last Filed: 05/24/16 15:16> Date of Encounter: 05/24/16 Time of Encounter: 13:00 - Assessment and plan (1) Community acquired pneumonia Current Visit: No Status: Acute Assessment and plan: 05/24/16 Improved today Will continue IV Levaquin (day#3) 05/23/16 Significant clinical improvement Continue antibiotics 05/22/16 Possible CAP: - Blood cultures - IV Levofloxacin. - Repeat Xrays in 48 hours for possible improvement/worsening. - will treat as CAP (2) COPD (chronic obstructive pulmonary disease) Current Visit: No Status: Chronic Assessment and plan: O2 saturation 98% on 2L Continue duonebs, steroids, abx 05/23/16 O2 saturation stable Continue duo nebs/Solu-Medrol Continue monitor 05/22/16 Admit as inpatient IV antibiotics IV steroids BDAs close monitoring. Qualifiers: COPD type: unspecified COPD Qualified Code(s): J44.9 - Chronic obstructive pulmonary disease, unspecified (3) Pulmonary embolism Current Visit: No Status: Acute Assessment and plan: Continues Xarelto Qualifiers: Pulmonary embolism type: other Chronicity: unspecified Acute cor pulmonale presence: without acute cor pulmonale Qualified Code(s): I26.99 - Other pulmonary embolism without acute cor pulmonale (4) Diabetes Current Visit: No Status: Chronic Assessment and plan: 05/24/16 Continue low-dose sliding scale insulin ACHS 05/22/16 SCSI ACHS anticipate elevated blood sugar as she is on steroids. 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 will send 3 troponin to rule out cardiac event. Qualifiers: Hypertension type: essential hypertension Qualified Code(s): I10 - Essential (primary) hypertension (6) DVT prophylaxis Current Visit: No Status: Acute Assessment and plan: On Xarelto - Time Spent With Patient 25 - 35 minutes (30 minutes including time with patient and coordinating care) - Subjective Interval history: Patient states that she is feeling better today. She states that she is more active today. Does admit to dizziness and nervousness. However, states that nervousness has improved after Xanax. Denies chest pain and dyspnea. - Constitutional Vitals: Temp Pulse Resp BP Pulse Ox 97.4 F L 87 16 124/51 98 05/24/16 12:47 05/24/16 12:47 05/24/16 12:47 05/24/16 12:47 05/24/16 12:47 General appearance: Present: mild distress, A&O X 3, pleasant, answers questions appropriately - Head Head exam: Present: atraumatic, normocephalic - Eye Eye exam: Present: PERRL, conjuntiva pink, sclera anicteric Pupils: Present: PERRL - Neck Neck exam general surgery: Present: supple, trachea midline. Absent: lymphadenopathy - Respiratory Respiratory exam: Present: CTAB. Absent: accessory muscle use, rales, rhonchi, wheezes - Cardiovascular Cardiovascular exam: Present: RRR, +S1, +S2. Absent: diastolic murmur, gallop, rubs, systolic murmur - GI/Abdominal GI/Abdominal exam: Present: normal bowel sounds, soft, no peritoneal signs. Absent: distended, tenderness - Extremities Exam Extremities exam: Present: warm, radial pulses palpable and symetrical. Absent : calf tenderness, cyanotic, pedal edema - Neurological Exam Neurological exam: Present: CN II-XII intact, oriented X3, no focal deficits. Absent: facial droop, speech deficit - Skin Skin exam: Present: dry, intact Internal Medicine: Result - Labs CBC & Chem 7: 05/24/16 05:31 05/24/16 05:31 Labs: Short CBC 05/24/16 Range/Units 05:31 WBC 7.0 (4.3-11.1) K/mcL Hgb 11.1 L (11.5-15.4) g/dL Hct 34.0 L (35.3-44.9) % Plt Count 273 (140-400) K/mcL Neutrophils # 5.9 (1.6-8.9) K/mcL BMP 05/24/16 05:31 Sodium 139 Potassium 3.7 Chloride 103 Carbon Dioxide 23 BUN 37 H D Creatinine 1.06 Glucose 275 H Calcium 9.6 - ABG Interpretation ABG results: PT/INR, D-dimer D-Dimer 939 ng/mLFEU (0-500) H 05/22/16 17:11 Consult Discharge Plan - Plan Referrals: Jeffery Lane MD [Primary Care Provider] - 05/30/16 3:00 pm () <Paul Hutchinson P - Last Filed: 05/24/16 18:33> - Assessment and plan (1) Community acquired pneumonia Current Visit: No Status: Acute (2) COPD (chronic obstructive pulmonary disease) Current Visit: No Status: Chronic Qualifiers: COPD type: unspecified COPD Qualified Code(s): J44.9 - Chronic obstructive pulmonary disease, unspecified (3) Hypertension Current Visit: No Status: Chronic Qualifiers: Hypertension type: essential hypertension Qualified Code(s): I10 - Essential (primary) hypertension (4) Diabetes Current Visit: No Status: Chronic Qualifiers: Diabetes mellitus type: type 2 Diabetes mellitus complication status: without complication Diabetes mellitus mcc insulin use: unspecified mcc insulin use status Qualified Code(s): E11.9 - Type 2 diabetes mellitus without complications (5) Pulmonary embolism Current Visit: No Status: Acute Qualifiers: Pulmonary embolism type: other Chronicity: unspecified Acute cor pulmonale presence: without acute cor pulmonale Qualified Code(s): I26.99 - Other pulmonary embolism without acute cor pulmonale - Constitutional Vitals: Temp Pulse Resp BP Pulse Ox 97.5 F L 98 13 129/59 98 05/24/16 18:05 05/24/16 18:05 05/24/16 18:05 05/24/16 18:05 05/24/16 18:05 Internal Medicine: Result - Labs CBC & Chem 7: 05/24/16 05:31 05/24/16 05:31 Labs: Short CBC 05/24/16 Range/Units 05:31 WBC 7.0 (4.3-11.1) K/mcL Hgb 11.1 L (11.5-15.4) g/dL Hct 34.0 L (35.3-44.9) % Plt Count 273 (140-400) K/mcL Neutrophils # 5.9 (1.6-8.9) K/mcL BMP 05/24/16 05:31 Sodium 139 Potassium 3.7 Chloride 103 Carbon Dioxide 23 BUN 37 H D Creatinine 1.06 Glucose 275 H Calcium 9.6 - ABG Interpretation ABG results: PT/INR, D-dimer D-Dimer 939 ng/mLFEU (0-500) H 05/22/16 17:11 - Attending Attestation I examined this patient and my medical decision-making was reviewed with the CHARACTER ACTOR/PA/Advanced Practice Nurse/Resident Physician. I agree with the documented findings, disposition and treatment plan as described except to the extent set forth below. home tomorrow
[2016-05-24] MEDS ORDERED: ALPRAZolam 0.25 MG TABLET PO PRN (15:29)
[2016-05-25] MEDS: Ipratropium/Albuterol Neb 3 ML IH SCH ×3 (03:53→11:17)
[2016-05-25] MEDS: Sucralfate 1 GM TABLET PO SCH (04:52)
[2016-05-25 06:54] LABS: Basophils % 0.1 %; Eosinophils % 0.1 %; Hematocrit 34.4 % (35.3-44.9); Hemoglobin 11.2 g/dL (11.5-15.4); Immature Granulocytes % 0.4 % (0-4); Lymphocytes # 1.7 K/mcL (0.6-4.6); Lymphocytes % 21.5 %; Mean Corpuscular HGB Conc 32.6 g/dL (31.6-35.5); Mean Corpuscular Hemoglobin 28.4 pg (28.0-33.3); Mean Corpuscular Volume 87.3 fL (83.0-100.0); Mean Platelet Volume 10.9 fL (9.4-12.4); Monocytes # 0.9 K/mcL (0.0-1.3); Monocytes % 11.6 %; Neutrophils # 5.2 K/mcL (1.6-8.9); Platelet Count 262 K/mcL (140-400); Red Blood Count 3.94 M/mcL (3.82-4.97); Red Cell Distribution Width 21.3 % (11.5-14.5); Segmented Neutrophils % 66.3 %
[2016-05-25 07:14] LABS: Alanine Aminotransferase 20 Units/L (0-55); Albumin 3.3 g/dL (3.5-5.0); Albumin/Globulin Ratio 0.8 (1.1-2.2); Alkaline Phosphatase 89 Units/L (38-126); BUN/Creatinine Ratio 44 (6-26); Bilirubin,Total 0.5 mg/dL (0.2-1.2); Blood Urea Nitrogen 44 mg/dL (7-20); Calcium 9.6 mg/dL (8.6-10.8); Carbon Dioxide 27 mEq/L (19-29); Chloride 102 mEq/L (98-109); Glucose 159 mg/dL (70-99); Osmolality,Calculated 301 (280-300); Potassium 4.2 mEq/L (3.5-4.5); Sodium 138 mEq/L (136-145); Total Protein 7.3 g/dL (6.0-8.3); eGFR For African Americans > 60 (> 60); eGFR For Non-African Americans 54 (> 60)
[2016-05-25 07:16] LABS: Aspartate Amino Transferase 30 Units/L (5-34)
[2016-05-25] MEDS: Acyclovir 200 MG CAPSULE PO SCH (07:56)
[2016-05-25] MEDS: Metoprolol XL (24 HR) Succ 50 MG TAB.ER.24H PO SCH (07:56)
[2016-05-25] MEDS: Potassium Effervescent 25 MEQ TABLET.EFF PO SCH (07:56)
[2016-05-25] MEDS: Isosorbide MONOnitrate (24 HR) 60 MG TAB.ER.24H PO SCH (07:57)
[2016-05-25] MEDS: *HR* Rivaroxaban 15 MG TABLET PO SCH (07:57)
[2016-05-25] MEDS: amLODIPine 5 MG TABLET PO SCH (07:58)
[2016-05-25] MEDS: Levofloxacin 750 MG/150 ML 750 MG/150 ML BAG IVPB SCH (07:58)
[2016-05-25] MEDS: [UNRECOGNIZED DRUG - OTHER] PO SCH (07:59)
[2016-05-25] MEDS: Insulin LISPRO 300 UNITS/3 ML VIAL SQ SCH (08:03)
--- NOTE | 2016-05-25 08:15 | Discharge Summary ---
<MarileeReyes lynch - Last Filed: 05/25/16 08:25> Date of Encounter: 05/25/16 Time of Encounter: 08:15 - Discharge Diagnosis (1) Community acquired pneumonia Priority: Primary Status: Acute (2) COPD (chronic obstructive pulmonary disease) Priority: Secondary Status: Chronic Qualifiers: COPD type: unspecified COPD Qualified Code(s): J44.9 - Chronic obstructive pulmonary disease, unspecified (3) Hypertension Priority: Secondary Status: Chronic Qualifiers: Hypertension type: essential hypertension Qualified Code(s): I10 - Essential (primary) hypertension (4) Diabetes Priority: Secondary Status: Chronic Qualifiers: Diabetes mellitus type: type 2 Diabetes mellitus complication status: without complication Diabetes mellitus intermediate manager insulin use: unspecified intermediate manager insulin use status Qualified Code(s): E11.9 - Type 2 diabetes mellitus without complications (5) Pulmonary embolism Priority: Secondary Status: Acute Qualifiers: Pulmonary embolism type: other Chronicity: unspecified Acute cor pulmonale presence: without acute cor pulmonale Qualified Code(s): I26.99 - Other pulmonary embolism without acute cor pulmonale (6) DVT prophylaxis Priority: Secondary Status: Acute - Discharge Medications Prescriptions: Alprazolam [Xanax 0.25 MG Tablet] 0.25 mg PO BID PRN #10 tablet PRN Reason: Anxiety Furosemide [Lasix] 40 mg PO DAILY #30 tablet Levofloxacin [Levaquin] 750 mg PO DAILY #2 tablet PredniSONE 40 mg PO DAILY #30 tablet Home Medications: Amlodipine [Norvasc] 2.5 mg PO DAILY 11/12/14 [History] Cranberry Fruit Extract/Vit C [Azo Cranberry Softgel] 1 each PO DAILY 11/12/14 [ History] Docusate Sodium [Colace] 100 mg PO BID PRN 11/12/14 [History] Ergocalciferol (VITAMIN D2) [Drisdol (50,000 Unit)] 50,000 unit PO QWEEK [History] Exenatide Microspheres [Bydureon] 2 mg SQ QWEEK 11/12/14 [History] Insulin LISPRO [Humalog Kwikpen U-200] 2 - 15 unit SQ ACHS 11/12/14 [History] Levothyroxine [Synthroid] 125 mcg PO DAILY 11/12/14 [History] Nitroglycerin 0.4 mg SL Q5MIN PRN 11/12/14 [History] Potassium Effervescent [Klyte] 25 meq PO BID 11/12/14 [History] Rosuvastatin [Crestor] 40 mg PO HS 11/12/14 [History] Saccharomyces Boulardii [Probiotic] 250 mg PO DAILY 11/12/14 [History] Folic Acid 1 mg PO DAILY #90 tablet 11/24/15 [Rx] Acyclovir [Zovirax] 1 tab PO BID #180 tablet 12/24/15 [Rx] Sucralfate [Carafate] 1 gm PO TID #90 tablet 04/12/16 [Rx] Loperamide [Imodium] 2 mg PO BID #60 capsule 05/04/16 [Rx] Budesonide/Formoterol 160/4.5 [Symbicort 160/4.5] 2 puff IH BID 05/22/16 [ History] Calcitriol [Rocaltrol] 0.25 mcg PO DAILY 05/22/16 [History] Dasatinib [Sprycel] 70 mg PO DAILY 05/22/16 [History] Ferrous Sulfate [Iron] 325 mg PO DAILY 05/22/16 [History] Isosorbide MONOnitrate [Isosorbide Mononitrate ER] 120 mg PO DAILY 05/22/16 [ History] Losartan Potassium [Cozaar] 100 mg PO DAILY 05/22/16 [History] Metformin HCl [Metformin HCl ER] 500 mg PO DAILY 05/22/16 [History] Metoprolol XL (24 HR) Succ [Toprol Xl] 100 mg PO BID 05/22/16 [History] Montelukast [Singulair] 10 mg PO DAILY 05/22/16 [History] Ranitidine HCl [Heartburn Relief] 150 mg PO DAILY PRN 05/22/16 [History] Rivaroxaban [Xarelto] 15 mg PO DAILY 05/22/16 [History] Selenium 200 mcg PO DAILY 05/22/16 [History] Alprazolam [Xanax 0.25 MG Tablet] 0.25 mg PO BID PRN #10 tablet 05/25/16 [Rx] Furosemide [Lasix] 40 mg PO DAILY #30 tablet 05/25/16 [Rx] Levofloxacin [Levaquin] 750 mg PO DAILY #2 tablet 05/25/16 [Rx] PredniSONE 40 mg PO DAILY #30 tablet 05/25/16 [Rx] Allergies/Adverse Reactions: Allergies No Known Allergies Allergy (Verified 05/22/16 09:53) Date of admission: 05/22/16 17:06 Primary care physician: Jeffery Lane MD Consults: 05/23/16 10:03 Consult to Oncology [CONS] Routine Consulting Provider: [facility] Reason for Consult: leukemia with ?CHF Call Completed: Yes Discharging clinician: Reyes Hunt Anticipated date of discharge: 05/25/16 - Patient Status Disposition: Home, Self-Care Condition: Fair Functional capacity at discharge: independent ambulation - Discharge Instructions Instructions: Alprazolam (By mouth), Levofloxacin (By mouth), Viral Pneumonia ( DC) Follow Up With: Jeffery Lane MD [Primary Care Provider] - 05/30/16 3:00 pm (Please follow up as schedule..) Forms: ED Satisfaction Letter Additional Instructions: Follow-up with PCM within next week - Diet and Activity Activity: increase activity as tolerated Diet: diabetic diet Hospital course: Ms. Sanchez is a 75 year old female with past medical history significant for COPD, CHF, asthma, breast cancer, type 2 diabetes, hypertension, pulmonary embolism, and recent diagnosis of leukemia (CML). She presented to the emergency department 05/22 for shortness of breath for several days. Chest x-ray showed bilateral pulmonary edema and a small left-sided pleural effusion. She was treated for community acquired pneumonia with Levaquin. She also underwent diuresis and breathing treatments with significant symptomatic improvement. She had an echocardiogram which showed diastolic dysfunction and a severely enlarged left atrium but otherwise was grossly unremarkable. Given her recent diagnosis of leukemia oncology was consulted and remarked that her cancer treatment is unlikely contributing to her shortness of breath. - Time Spent with Patient Total time spent providing and/or coordinating discharge services: Greater than 30 minutes - Constitutional Vitals: Temp Pulse Resp BP Pulse Ox 97.7 F 74 16 127/68 97 05/25/16 06:59 05/25/16 06:59 05/25/16 06:59 05/25/16 06:59 05/25/16 06:59 General appearance: Present: mild distress, A&O X 3, pleasant, answers questions appropriately - Head Head exam: Present: atraumatic, normocephalic - Eye Eye exam: Present: PERRL, conjuntiva pink, sclera anicteric Pupils: Present: PERRL - Neck Neck exam general surgery: Present: supple, trachea midline. Absent: lymphadenopathy - Respiratory Respiratory exam: Present: decreased breath sounds, CTAB. Absent: accessory muscle use, rales, rhonchi, wheezes - Cardiovascular Cardiovascular exam: Present: RRR, +S1, +S2. Absent: diastolic murmur, gallop, rubs, systolic murmur - GI/Abdominal GI/Abdominal exam: Present: normal bowel sounds, soft, no peritoneal signs. Absent: distended, tenderness - Extremities Exam Extremities exam: Present: warm, radial pulses palpable and symetrical. Absent : calf tenderness, cyanotic, pedal edema - Neurological Exam Neurological exam: Present: CN II-XII intact, oriented X3, no focal deficits. Absent: pronater drift, facial droop, speech deficit - Skin Skin exam: Present: dry, intact <Evangelina,Paul P - Last Filed: 05/25/16 17:39> - Discharge Diagnosis (1) Community acquired pneumonia Status: Acute (2) COPD (chronic obstructive pulmonary disease) Status: Chronic Qualifiers: COPD type: unspecified COPD Qualified Code(s): J44.9 - Chronic obstructive pulmonary disease, unspecified (3) Hypertension Status: Chronic Qualifiers: Hypertension type: essential hypertension Qualified Code(s): I10 - Essential (primary) hypertension (4) Diabetes Status: Chronic Qualifiers: Diabetes mellitus type: type 2 Diabetes mellitus complication status: without complication Diabetes mellitus intermediate insulin use: unspecified intermediate manager insulin use status Qualified Code(s): E11.9 - Type 2 diabetes mellitus without complications (5) Pulmonary embolism Status: Acute Qualifiers: Pulmonary embolism type: other Chronicity: unspecified Acute cor pulmonale presence: without acute cor pulmonale Qualified Code(s): I26.99 - Other pulmonary embolism without acute cor pulmonale Date of admission: 05/22/16 17:06 Primary care physician: Jeffery Lane MD Consults: 05/23/16 10:03 Consult to Oncology [CONS] Routine Consulting Provider: [facility] Reason for Consult: leukemia with ?CHF Call Completed: Yes Hospital course: Ms. Sanchez is a 75 year old female - Time Spent with Patient Total time spent providing and/or coordinating discharge services: - Constitutional Vitals: Temp Pulse Resp BP Pulse Ox 97.6 F 74 16 122/57 98 05/25/16 10:42 05/25/16 10:42 05/25/16 11:17 05/25/16 10:42 05/25/16 11:17 - Attending Attestation I examined this patient and my medical decision-making was reviewed with the LOCOMOTIVE OBSERVER/PA/Advanced Practice Nurse/Resident Physician. I agree with the documented findings, disposition and treatment plan as described except to the extent set forth below.
[2016-05-25] MEDS ORDERED: Furosemide 40 MG TABLET PO SCH (09:00)
[2016-05-25] MEDS ORDERED: predniSONE 20 MG TABLET PO SCH (09:00)
[2016-05-25] MEDS ORDERED: levoFLOXacin 750 MG TABLET PO SCH (09:30)
[2016-05-25 10:48] VITALS: BP 122/57
== END 2016-05-25 12:44 | disposition home or self-care (01) | DRG 190 ==
LOC: EMEROO 09:42 → 2ANU 09:42 → SUATTDRO 17:06
PROVIDERS: ADMIT Internal Medicine; ATTEND Internal Medicine

== ENCOUNTER 2016-09-06 11:49 | Inpatient (IN) ==
--- NOTE | 2016-09-06 12:19 | Emergency Department Note ---
Disposition Clinical Impression: Altered mental status Qualifiers: Altered mental status type: unspecified Qualified Code(s): R41.82 - Altered mental status, unspecified CMML (chronic myelomonocytic leukemia) Qualifiers: Leukemia Active/Remission status: without remission Qualified Code(s): C93.10 - Chronic myelomonocytic leukemia not having achieved remission Disposition: Admitted As Inpatient Condition: Good General Adult HPI - General Chief complaint: ED Altered Mental Status Stated complaint: AMS/ Sent per cancer center Time Seen by Provider: 09/06/16 12:08 Source: patient, family Limitations: no limitations Nursing Notes Reviewed: Yes Vital Signs Reviewed: Yes - History of Present Illness Pain Scale: 0 - Related Data Home Medications Medication Instructions Recorded Confirmed Amlodipine [Norvasc] 5 mg PO DAILY 11/12/14 09/06/16 Cranberry Fruit Extract/Vit C [Azo 1 each PO DAILY 11/12/14 09/06/16 Cranberry Softgel] Ergocalciferol (VITAMIN D2) 50,000 unit PO QWEEK 11/12/14 09/06/16 [Drisdol (50,000 Unit)] Exenatide Microspheres [Bydureon] 2 mg SQ QWEEK 11/12/14 09/06/16 Insulin LISPRO [Humalog Kwikpen 2 - 15 unit SQ ACHS 11/12/14 09/06/16 U-200] Levothyroxine [Synthroid] 125 mcg PO DAILY 11/12/14 09/06/16 Nitroglycerin 0.4 mg SL Q5MIN PRN 11/12/14 09/06/16 Rosuvastatin [Crestor] 40 mg PO HS 11/12/14 09/06/16 Saccharomyces Boulardii [Probiotic] 250 mg PO DAILY 11/12/14 09/06/16 Budesonide/Formoterol 160/4.5 2 puff IH BID 05/22/16 09/06/16 [Symbicort 160/4.5] Calcitriol [Rocaltrol] 0.25 mcg PO DAILY 05/22/16 09/06/16 Isosorbide MONOnitrate [Isosorbide 120 mg PO DAILY 05/22/16 09/06/16 Mononitrate ER] Losartan Potassium [Cozaar] 100 mg PO DAILY 05/22/16 09/06/16 Metformin HCl [Metformin HCl ER] 500 mg PO DAILY 05/22/16 09/06/16 Metoprolol XL (24 HR) Succ [Toprol 100 mg PO BID 05/22/16 09/06/16 Xl] Montelukast [Singulair] 10 mg PO DAILY 05/22/16 09/06/16 Selenium 200 mcg PO DAILY 05/22/16 09/06/16 Albuterol Sulfate [Proair Hfa] 2 puff IH AD 07/10/16 09/06/16 Potassium Chloride [Klor-Con] 50 meq PO TID 07/10/16 09/06/16 Acyclovir [Zovirax] 400 mg PO BID 09/06/16 09/06/16 Dasatinib [Sprycel] 70 mg PO DAILY 09/06/16 09/06/16 Furosemide [Lasix] 40 mg PO Q48H 09/06/16 09/06/16 Oxygen 2 l .ROUTE AD 09/06/16 09/06/16 Previous Rx's Medication Instructions Recorded Loperamide [Imodium] 2 mg PO BID #60 capsule 05/04/16 Rivaroxaban [Xarelto] 15 mg PO DAILY #90 tablet 06/08/16 LORazepam [Ativan] 0.5 mg PO TID PRN #21 tablet 06/22/16 Polyethylene Glycol 3350 [MiraLAX 1 scoop PO AD #510 gm 06/22/16 Powder Bulk 17.9 Oz] Folic Acid 1 mg PO DAILY #90 tablet 07/31/16 Megestrol Acetate [Megace] 400 mg PO BID #400 mls 08/07/16 Nilotinib HCl [Tasigna] 2 tab PO BID #60 capsule 09/04/16 Allergies Allergy/AdvReac Type Severity Reaction Status Date / Time No Known Allergies Allergy Verified 09/04/16 13:46 Past Medical History - Past Medical History Medical history: Reports: asthma, cancer, CHF, COPD, DVT, diabetes, hyperlipidemia, hypertension, pulmonary embolus, other Surgical history: Reports: cholecystectomy, other (D&C, lumpectomy in 2008, 2016 cystoscopy) Psychiatric history: Reports: anxiety, depression APPLICATION SYSTEMS ADMINISTRATOR history: Reports: no APPLICATION SYSTEMS ADMINISTRATOR history - Social History Smoking Status: Former smoker Smokeless Tobacco Status: No Alcohol use: Reports: none Drug use: Reports: none Physical Exam - General Limitations: no limitations General appearance: alert Course Vital Signs Temperature 97.9 F 09/06/16 11:54 Pulse Rate 96 09/06/16 11:54 Respiratory Rate 16 09/06/16 11:54 Blood Pressure 171/71 09/06/16 11:54 O2 Sat by Pulse Oximetry 98 09/06/16 11:54 Temperature 97.9 F 09/06/16 11:54 Pulse Rate 83 09/06/16 13:45 Respiratory Rate 16 09/06/16 15:07 Blood Pressure 143/59 09/06/16 15:07 O2 Sat by Pulse Oximetry 99 09/06/16 13:45 Oxygen Delivery Oxygen Delivery Nasal Cannula Medical Decision Making - MDM Narrative Medical decision making narrative: I examined this patient and my medical decision-making was reviewed with the CARE COORDINATION MANAGER/PA/Advanced Practice Nurse/Resident Physician. I agree with the documented findings, disposition and treatment plan as described except to the extent set forth below. Patient was seen and evaluated on arrival by Dr. Francisco and myself, I agree with his evaluation and management plan, I supervised the care the patient's stay. Patient has a history of leukemia. She is currently been treating at the cancer center here, said she has been tolerating her medications well, Sunday started having a gradual change in mental status. No signs of acute stroke. She is tearful is perseverating. Were going to do a workup on her probably CT her head. We will speak to the cancer center. She will most likely need admission. Patient husbands in agreement with this plan. 1300 hrs.: Patient's labs are back and are fairly unremarkable. Waiting on imaging studies. Then admission. In the differential is still psychiatric etiology. But I do not feel we can clear her for that here. She is not homicidal or suicidal. Were going to wait her imaging studies, speak with her doctor the cancer center then speak with him about admission. Chest X-Ray 09/06/16 12:14 IMPRESSION: No acute process. Stable cardiomegaly. D/ / 09/06/2016 12:50:39 Roberto Nye MD / shawn Interpreting Provider: Roberto Nye MD Head CT 09/06/16 12:12 IMPRESSION: No acute intracranial abnormality. D/ / Neftali Awan MD / Neftali Awan MD Interpreting Provider: Neftali Awan MD Chest X-Ray 09/06/16 12:14 IMPRESSION: No acute process. Stable cardiomegaly. D/ / 09/06/2016 12:50:39 Roberto Nye MD / shawn Interpreting Provider: Roberto Nye MD 1320 hrs. patient's labs are back. No acute abnormalities. Spoke with the cancer center, her oncologist stated lenticular offer chemotherapeutic agent because she been doing better with that but was getting some diarrhea from it. She will be admitted through the hospitalist service. Oncology OB consult, she may need a mental health consult also. Family is in agreement with plan. - Lab Data Result diagrams: 09/06/16 12:27 09/06/16 12:27 Lab Results 09/06/16 09/06/16 09/06/16 Range/Units 12:27 12:27 12:36 WBC 7.7 (4.3-11.1) K/mcL RBC 4.41 (3.82-4.97) M/mcL Hgb 13.6 (11.5-15.4) g/dL Hct 40.8 (35.3-44.9) % MCV 92.5 (83.0-100.0) fL MCH 30.8 (28.0-33.3) pg MCHC 33.3 (31.6-35.5) g/dL RDW 15.4 H (11.5-14.5) % Plt Count 208 (140-400) K/mcL MPV 10.0 (9.4-12.4) fL Immature Gran % 0.5 (0-4) % Seg Neutrophils % 68.2 % Lymphocytes % 21.3 % Monocytes % 8.6 % Eosinophils % 1.0 % Basophils % 0.4 % Neutrophils # 5.3 (1.6-8.9) K/mcL Lymphocytes # 1.6 (0.6-4.6) K/mcL Monocytes # 0.7 (0.0-1.3) K/mcL Eosinophils # 0.1 (0.0-0.6) K/mcL Basophils # 0.0 (0.0-0.2) K/mcL Sodium 138 (136-145) mEq/L Potassium 3.5 (3.5-4.5) mEq/L Chloride 108 (98-109) mEq/L Carbon Dioxide 22 (19-29) mEq/L BUN 22 H (7-20) mg/dL Creatinine 1.10 (0.57-1.11) mg/dL Est GFR ( Amer) 59 L (> 60) Est GFR (Non-Af Amer) 49 L (> 60) BUN/Creatinine Ratio 20 (6-26) Glucose 104 H (70-99) mg/dL Calculated Osmolality 290 (280-300) Calcium 11.0 H (8.6-10.8) mg/dL Total Bilirubin 0.9 (0.2-1.2) mg/dL Direct Bilirubin 0.4 (0.0-0.5) mg/dL Indirect Bilirubin 0.5 (0.0-1.2) mg/dL AST 12 (5-34) Units/L ALT 13 (0-55) Units/L Alkaline Phosphatase 89 (38-126) Units/L Serum Total Protein 7.4 (6.0-8.3) g/dL Albumin 3.9 (3.5-5.0) g/dL Globulin 3.5 (2.4-3.5) g/dL Albumin/Globulin Ratio 1.1 (1.1-2.2) Urine Color Dark Yellow (Yellow) Urine Clarity Clear (Clear) Urine pH 6.5 (5.0-8.0) pH Units Ur Specific [place] 1.024 (1.010-1.025) Urine Protein 100 H (Neg-Trace) mg/dL Urine Glucose (UA) Normal (Normal) mg/dL Urine Ketones Negative (Negative) mg/dL Urine Blood Negative (Negative) Urine Nitrite Negative (Negative) Urine Bilirubin Small H (Negative) Urine Urobilinogen 2.0 H (Normal) mg/dL Ur Leukocyte Esterase Trace H (Negative) Urine Microscopic RBC 0-3 (0-3) per hpf Urine Microscopic WBC 5-15 H (0-3) per hpf Ur Squamous Epith Cells Many H (None-Few) per lpf Urine Bacteria None Seen (None-Few) per hpf Hyaline Casts None Seen (None-Few) per lpf Ur Culture Indicated? YES A (NO)
--- NOTE | 2016-09-06 12:22 | Emergency Department Note ---
Disposition Clinical Impression: Altered mental status Qualifiers: Altered mental status type: unspecified Qualified Code(s): R41.82 - Altered mental status, unspecified Disposition: Admitted As Inpatient Condition: Good Referrals: Jeffery Lane MD [Primary Care Provider] - NO,PCP [Non-Partnered Physician] - Forms: ED Satisfaction Letter Time of Disposition: 13:50 Altered Mental Status HPI - General Chief Complaint: ED Altered Mental Status Stated Complaint: AMS/ Sent per cancer center Time Seen by Provider: 09/06/16 12:08 Source: patient, family Mode of arrival: private vehicle Limitations: no limitations Nursing Notes Reviewed: Yes Vital Signs Reviewed: Yes - History of Present Illness HPI Narrative: 76-year-old female with past medical history of leukemia on oral chemotherapy agents presents for confusion progressive over the last 3 days with repetitive questioning and stuttering. She has not had any loss of consciousness or weakness or numbness. No falls or injury. No medication change or noncompliance other than not taking her medicine this morning. No complaints of suicidality or homicidality. No apparent hallucinations. No shortness of breath, headache, fever, chest pain, cough, abdominal pain, nausea, vomiting, or diarrhea. No change in urination or bowel movements. No rashes or edema. Patient is on xarelto for a history of pulmonary embolus. Her reports that he has never seen her like this in the past. He called the oncologist today who recommended he come into the emergency department for evaluation. - Related Data Home Medications Medication Instructions Recorded Confirmed Amlodipine [Norvasc] 2.5 mg PO DAILY 11/12/14 09/04/16 Cranberry Fruit Extract/Vit C [Azo 1 each PO DAILY 11/12/14 09/04/16 Cranberry Softgel] Ergocalciferol (VITAMIN D2) 50,000 unit PO QWEEK 11/12/14 09/04/16 [Drisdol (50,000 Unit)] Exenatide Microspheres [Bydureon] 2 mg SQ QWEEK 11/12/14 09/04/16 Insulin LISPRO [Humalog Kwikpen 2 - 15 unit SQ ACHS 11/12/14 09/04/16 U-200] Levothyroxine [Synthroid] 125 mcg PO DAILY 11/12/14 09/04/16 Nitroglycerin 0.4 mg SL Q5MIN PRN 11/12/14 09/04/16 Rosuvastatin [Crestor] 40 mg PO HS 11/12/14 09/04/16 Saccharomyces Boulardii [Probiotic] 250 mg PO DAILY 11/12/14 09/04/16 Budesonide/Formoterol 160/4.5 2 puff IH BID 05/22/16 09/04/16 [Symbicort 160/4.5] Calcitriol [Rocaltrol] 0.25 mcg PO DAILY 05/22/16 09/04/16 Isosorbide MONOnitrate [Isosorbide 120 mg PO DAILY 05/22/16 09/04/16 Mononitrate ER] Losartan Potassium [Cozaar] 100 mg PO DAILY 05/22/16 09/04/16 Metformin HCl [Metformin HCl ER] 500 mg PO DAILY 05/22/16 09/04/16 Metoprolol XL (24 HR) Succ [Toprol 100 mg PO BID 05/22/16 09/04/16 Xl] Montelukast [Singulair] 10 mg PO DAILY 05/22/16 09/04/16 Selenium 200 mcg PO DAILY 05/22/16 09/04/16 Albuterol Sulfate [Proair Hfa] 2 puff IH AD 07/10/16 09/04/16 Potassium Chloride [Klor-Con] 50 meq PO TID 07/10/16 09/04/16 Previous Rx's Medication Instructions Recorded Loperamide [Imodium] 2 mg PO BID #60 capsule 05/04/16 Rivaroxaban [Xarelto] 15 mg PO DAILY #90 tablet 06/08/16 Furosemide [Lasix] 40 mg PO DAILY #30 tablet 06/22/16 LORazepam [Ativan] 0.5 mg PO TID PRN #21 tablet 06/22/16 Polyethylene Glycol 3350 [MiraLAX 1 scoop PO AD #510 gm 06/22/16 Powder Bulk 17.9 Oz] PredniSONE [Deltasone] 20 mg PO AD #18 tablet 06/30/16 Acyclovir [Zovirax] 1 tab PO BID #180 tablet 07/03/16 Folic Acid 1 mg PO DAILY #90 tablet 07/31/16 Megestrol Acetate [Megace] 400 mg PO BID #400 mls 08/07/16 Nilotinib HCl [Tasigna] 2 tab PO BID #60 capsule 09/04/16 Allergies Allergy/AdvReac Type Severity Reaction Status Date / Time No Known Allergies Allergy Verified 09/04/16 13:46 All systems ED: reviewed and negative except as stated. Past Medical History - Past Medical History Attestation: Yes The following information was validated with the patient. 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: no [employer] DEVELOPER history - Social History Smoking Status: Former smoker Smokeless Tobacco Status: No Alcohol use: Reports: none Drug use: Reports: none Physical Exam - Head Head exam: atraumatic, normocephalic, normal inspection - Eye Eye exam: Present: normal appearance, PERRL, EOMI - ENT ENT exam: normal exam, normal oropharynx, mucous membranes moist - Neck Neck exam: Present: normal inspection, full ROM, trachea midline - Chest Chest inspection: Present: normal inspection, symmetric chest wall rise - Respiratory Respiratory exam: Clear to auscultation bilaterally without wheezes rales or rhonchi Cardiovascular Cardiovascular exam: Present: regular rate, normal rhythm, normal heart sounds - Abdominal Exam Abdominal exam: Present: soft, Non-Tender. Absent: tenderness, distention, guarding, rebound, rigidity - Extremities Exam Extremities exam: Present: normal inspection, full ROM - Expanded Lower Extremity Exam Hip/Pelvis exam: Present: normal inspection, full ROM - Back Exam Back exam: Present: normal inspection, full ROM. Absent: tenderness, CVA tenderness (R), CVA tenderness (L) - Neurological Exam Patient with repetitive stuttering speech repeatedly asking me to call her oncologist and asking where her daughter is. She is alert and oriented 3. She has no motor or sensory deficits. Normal reflexes in the lower extremities bilaterally. Normal sensory exam in all extremities. - Psychiatric Psychiatric exam: Patient is anxious with normal affect. - Skin Skin exam: Present: warm, dry, intact, normal color - General Limitations: no limitations General appearance: alert Course - Reevaluation(s) Reevaluation #1: Labs normal. Awaiting CT read. Case discussed with Dr. Barnes. He recommended stopping her Tasigna to give her break from it as her blood counts are normal and it was causing her diarrhea. This would also help to determine if it could be causing her symptoms, but he doesn't believe this is likely the case. She will be admitted to hospitalist for further management after CT is read.. Time: 13:29 Reevaluation #2: CT of the head was unremarkable. I discussed this with patient's family at the bedside. Her at the bedside believes that she may be depressed and I wonder if this might be causing her symptoms to some degree. I informed the that if her medical evaluation comes back normal she may benefit from a psychiatric evaluation. He agrees with this. I also notified the hospitalist of this concern. Accepted by Dr. Arreola in stable condition for AMS. Time: 13:49 Vital Signs Temperature 97.9 F 09/06/16 11:54 Pulse Rate 96 09/06/16 11:54 Respiratory Rate 16 09/06/16 11:54 Blood Pressure 171/71 09/06/16 11:54 O2 Sat by Pulse Oximetry 98 09/06/16 11:54 Temperature 97.9 F 09/06/16 11:54 Pulse Rate 83 09/06/16 13:45 Respiratory Rate 16 09/06/16 13:45 Blood Pressure 159/67 09/06/16 13:45 O2 Sat by Pulse Oximetry 99 09/06/16 13:45 Oxygen Delivery Oxygen Delivery Nasal Cannula Altered Mental Status - Lab Data Result diagrams: 09/06/16 12:27 09/06/16 12:27 Lab Results 09/06/16 09/06/16 09/06/16 Range/Units 12:27 12:27 12:36 WBC 7.7 (4.3-11.1) K/mcL RBC 4.41 (3.82-4.97) M/mcL Hgb 13.6 (11.5-15.4) g/dL Hct 40.8 (35.3-44.9) % MCV 92.5 (83.0-100.0) fL MCH 30.8 (28.0-33.3) pg MCHC 33.3 (31.6-35.5) g/dL RDW 15.4 H (11.5-14.5) % Plt Count 208 (140-400) K/mcL MPV 10.0 (9.4-12.4) fL Immature Gran % 0.5 (0-4) % Seg Neutrophils % 68.2 % Lymphocytes % 21.3 % Monocytes % 8.6 % Eosinophils % 1.0 % Basophils % 0.4 % Neutrophils # 5.3 (1.6-8.9) K/mcL Lymphocytes # 1.6 (0.6-4.6) K/mcL Monocytes # 0.7 (0.0-1.3) K/mcL Eosinophils # 0.1 (0.0-0.6) K/mcL Basophils # 0.0 (0.0-0.2) K/mcL Sodium 138 (136-145) mEq/L Potassium 3.5 (3.5-4.5) mEq/L Chloride 108 (98-109) mEq/L Carbon Dioxide 22 (19-29) mEq/L BUN 22 H (7-20) mg/dL Creatinine 1.10 (0.57-1.11) mg/dL Est GFR ( Amer) 59 L (> 60) Est GFR (Non-Af Amer) 49 L (> 60) BUN/Creatinine Ratio 20 (6-26) Glucose 104 H (70-99) mg/dL Calculated Osmolality 290 (280-300) Calcium 11.0 H (8.6-10.8) mg/dL Total Bilirubin 0.9 (0.2-1.2) mg/dL Direct Bilirubin 0.4 (0.0-0.5) mg/dL Indirect Bilirubin 0.5 (0.0-1.2) mg/dL AST 12 (5-34) Units/L ALT 13 (0-55) Units/L Alkaline Phosphatase 89 (38-126) Units/L Serum Total Protein 7.4 (6.0-8.3) g/dL Albumin 3.9 (3.5-5.0) g/dL Globulin 3.5 (2.4-3.5) g/dL Albumin/Globulin Ratio 1.1 (1.1-2.2) Urine Color Dark Yellow (Yellow) Urine Clarity Clear (Clear) Urine pH 6.5 (5.0-8.0) pH Units Ur Specific Shirley 1.024 (1.010-1.025) Urine Protein 100 H (Neg-Trace) mg/dL Urine Glucose (UA) Normal (Normal) mg/dL Urine Ketones Negative (Negative) mg/dL Urine Blood Negative (Negative) Urine Nitrite Negative (Negative) Urine Bilirubin Small H (Negative) Urine Urobilinogen 2.0 H (Normal) mg/dL Ur Leukocyte Esterase Trace H (Negative) Urine Microscopic RBC 0-3 (0-3) per hpf Urine Microscopic WBC 5-15 H (0-3) per hpf Ur Squamous Epith Cells Many H (None-Few) per lpf Urine Bacteria None Seen (None-Few) per hpf Hyaline Casts None Seen (None-Few) per lpf Ur Culture Indicated? YES A (NO) - EKG Data EKG attestation: Yes I reviewed and interpreted this EKG. EKG results narrative: EKG shows normal sinus rhythm at 79 with normal axis and intervals. No ST elevation or depression. No T-wave inversions. No pathologic Q waves. No significant change when compared with 05/22/2016. TPA Checklist - LKW: 3-4.5 hrs Add. Warnings/Precautions Patient/family understanding: The patient/family members have been counseled and understood the risk, benefit , and alternatives of treatment.
[2016-09-06 12:38] LABS: Basophils % 0.4 %; Eosinophils # 0.1 K/mcL (0.0-0.6); Hematocrit 40.8 % (35.3-44.9); Hemoglobin 13.6 g/dL (11.5-15.4); Immature Granulocytes % 0.5 % (0-4); Lymphocytes # 1.6 K/mcL (0.6-4.6); Lymphocytes % 21.3 %; Mean Corpuscular HGB Conc 33.3 g/dL (31.6-35.5); Mean Corpuscular Hemoglobin 30.8 pg (28.0-33.3); Mean Corpuscular Volume 92.5 fL (83.0-100.0); Monocytes # 0.7 K/mcL (0.0-1.3); Monocytes % 8.6 %; Neutrophils # 5.3 K/mcL (1.6-8.9); Platelet Count 208 K/mcL (140-400); Red Blood Count 4.41 M/mcL (3.82-4.97); Red Cell Distribution Width 15.4 % (11.5-14.5); Segmented Neutrophils % 68.2 %
[2016-09-06 12:45] LABS: Bilirubin,Urine Small (Negative); Blood,Urine Negative (Negative); Color,Urine Dark Yellow (Yellow); Glucose,Urine (UA) Normal (Normal); Ketones,Urine Negative (Negative); Leukocyte Esterase,Urine Trace (Negative); Nitrite,Urine Negative (Negative); PH,Urine 6.5 pH Units (5.0-8.0); Protein,Urine 100 mg/dL (Neg-Trace); Specific Gravity,Urine 1.024 (1.010-1.025)
[2016-09-06 12:48] LABS: Bacteria,Urine None Seen per hpf (None-Few); Hyaline Casts,Urine None Seen per lpf (None-Few); RBC,Urine 0-3 per hpf (0-3); Squamous Epithelial Cell,Urine Many per lpf (None-Few)
[2016-09-06 12:49] LABS: Clarity,Urine Clear (Clear)
[2016-09-06 12:53] LABS: Albumin 3.9 g/dL (3.5-5.0); Albumin/Globulin Ratio 1.1 (1.1-2.2); Bilirubin,Direct 0.4 mg/dL (0.0-0.5); Bilirubin,Indirect 0.5 mg/dL (0.0-1.2); Bilirubin,Total 0.9 mg/dL (0.2-1.2); Globulin 3.5 g/dL (2.4-3.5); Potassium 3.5 mEq/L (3.5-4.5); Total Protein 7.4 g/dL (6.0-8.3)
[2016-09-06] MEDS ORDERED: Acetaminophen 325 MG TABLET PO PRN (14:25)
[2016-09-06] MEDS ORDERED: Naloxone 0.4 MG/ML INJ IVP PRN (14:25)
[2016-09-06] MEDS ORDERED: *HR* Dextrose 50 % in Water (Syg) 50 ML SYRINGE IVP PRN (14:31)
[2016-09-06] MEDS ORDERED: Dextrose Gel 15 GM PO PRN ×2 (14:31)
[2016-09-06] MEDS ORDERED: D5% in Water 1,000 ML IVC PRN (14:31)
--- NOTE | 2016-09-06 14:58 | Internal Med History&Physical ---
Date of Encounter: 09/06/16 Time of Encounter: 14:54 Assessment and Plan (1) Encephalopathy acute Current visit: Yes Status: Acute With confusion and word finding difficulty for 3 days prior to admission. LOCX [address] negative. Possibly secondary to UTI, CVA, neoplastic process. Unable to have MRI due to eileen in leg (secondary to multiple myeloma). Discussed with Dr. Arreola and will check head CT with contrast. Ammonia level and ABG pending (2) Accelerated phase chronic myeloid leukemia Current visit: Yes Status: Acute Per history. Follows with Dr. Barnes. Per ED notes, Dr. Rivera was contacted and advised holding home Tasigna for now as this could be contributing to altered mental status (although he does not feel this is likely) . Oncology consulted (3) Multiple myeloma Current visit: No Status: Chronic Per history and in remission per most recent bone marrow biopsy. CBC hemoglobin and platelets stable and actually improved from baseline. Qualifiers: Multiple myeloma remission status: in remission Qualified Code(s): C90.01 - Multiple myeloma in remission (4) Abnormal urinalysis Current visit: Yes Status: Acute UA with leuk esterase and WBC. Empirically treat with Rocephin with altered mental status as this could be contributing. Urine culture pending. De- escalate ATB as culture finalizes. (5) Essential (primary) hypertension Current visit: Yes Status: Acute Per history. BP mildly elevated while in the ED, has not taken blood pressure medications today. Resume home BP meds 1 terrified. Monitor BP and titrate PRN (6) Pulmonary embolism Current visit: Yes Status: Acute per hx. Has significant malignancy history as well. Continue home Xarelto Qualifiers: Chronicity: chronic Acute cor pulmonale presence: without acute cor pulmonale Qualified Code(s): I26.90 - Septic pulmonary embolism without acute cor pulmonale (7) Diabetes Current visit: No Status: Chronic per hx. Hgb A1c 6.2. Holding home metformin, add sliding scale insulin. 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 Sanchez is a 76 year old female hypertension, diabetes, history PE and leukemia on chemotherapy who presented to [facility] on [facility] with confusion and altered speech. She was admitted for further workup and treatment. Information obtained from chart review and at bedside as patient says she does not remember events. Per patient has been intermittently confused over the last 3 days. Says she has forgotten to take her medication does not realize that she is taking her medication she appears to zone out at times stops talking mid-sentence. Says she has trouble finding what words she wants to say. On exam the patient is alert and oriented 4 inches all questions appropriately. her only complaint is being cold, she is not aware of confusion or altered speech. No CP, no SOB, no blurred vision or headaches no numbness or tingling Past Med Surg Social Fam HX - Past Medical History Medical history: asthma, cancer, CHF, COPD, DVT, diabetes, hyperlipidemia, hypertension, pulmonary embolus, other Psychiatric history: anxiety, depression - Past Surgical History Surgical History: cholecystectomy, other (D&C, lumpectomy in 2008, 2016 cystoscopy) - Social History Smoking Status: Former smoker Smokeless Tobacco Status: No Alcohol use: none Drug use: none - Family History Father Hx Family Endocrine Disorder: Yes (father had diabetes) Internal Medicine - H&P: Meds Amlodipine [Norvasc] 5 mg PO DAILY 11/12/14 [History] Cranberry Fruit Extract/Vit C [Azo Cranberry Softgel] 1 each PO DAILY 11/12/14 [ History] Ergocalciferol (VITAMIN D2) [Drisdol (50,000 Unit)] 50,000 unit PO QWEEK [History] Exenatide Microspheres [Bydureon] 2 mg SQ QWEEK 11/12/14 [History] Insulin LISPRO [Humalog Kwikpen U-200] 2 - 15 unit SQ ACHS 11/12/14 [History] Levothyroxine [Synthroid] 125 mcg PO DAILY 11/12/14 [History] Nitroglycerin 0.4 mg SL Q5MIN PRN 11/12/14 [History] Rosuvastatin [Crestor] 40 mg PO HS 11/12/14 [History] Saccharomyces Boulardii [Probiotic] 250 mg PO DAILY 11/12/14 [History] Loperamide [Imodium] 2 mg PO BID #60 capsule 05/04/16 [Rx] Budesonide/Formoterol 160/4.5 [Symbicort 160/4.5] 2 puff IH BID 05/22/16 [ History] Calcitriol [Rocaltrol] 0.25 mcg PO DAILY 05/22/16 [History] Isosorbide MONOnitrate [Isosorbide Mononitrate ER] 120 mg PO DAILY 05/22/16 [ History] Losartan Potassium [Cozaar] 100 mg PO DAILY 05/22/16 [History] Metformin HCl [Metformin HCl ER] 500 mg PO DAILY 05/22/16 [History] Metoprolol XL (24 HR) Succ [Toprol Xl] 100 mg PO BID 05/22/16 [History] Montelukast [Singulair] 10 mg PO DAILY 05/22/16 [History] Selenium 200 mcg PO DAILY 05/22/16 [History] Rivaroxaban [Xarelto] 15 mg PO DAILY #90 tablet 06/08/16 [Rx] LORazepam [Ativan] 0.5 mg PO TID PRN #21 tablet 06/22/16 [Rx] Polyethylene Glycol 3350 [MiraLAX Powder Bulk 17.9 Oz] 1 scoop PO AD #510 gm 09/02 [Rx] Albuterol Sulfate [Proair Hfa] 2 puff IH AD 07/10/16 [History] Potassium Chloride [Klor-Con] 50 meq PO TID 07/10/16 [History] Folic Acid 1 mg PO DAILY #90 tablet 07/31/16 [Rx] Megestrol Acetate [Megace] 400 mg PO BID #400 mls 08/07/16 [Rx] Nilotinib HCl [Tasigna] 2 tab PO BID #60 capsule 09/04/16 [Rx] Acyclovir [Zovirax] 400 mg PO BID 09/06/16 [History] Dasatinib [Sprycel] 70 mg PO DAILY 09/06/16 [History] Furosemide [Lasix] 40 mg PO Q48H 09/06/16 [History] Oxygen 2 l .ROUTE AD 09/06/16 [History] Allergies No Known Allergies Allergy (Verified 09/04/16 13:46) ROS unobtainable: other All Systems PM: Please see history of present illness. A 10-system review of systems was performed and is negative for pertinent findings except as documented above in the HPI. - Constitutional Constitutional: no chills, no fever(s), no night sweats - EENT Eyes: no change in vision, no discharge, no pain, no photophobia Ears: no ear discharge, no ear pain, no tinnitus Nose, mouth and throat: no dysphagia, no nasal discharge, no neck pain, no sore throat - Cardiovascular Cardiovascular ROS IM: no chest pain, no diaphoresis, no dyspnea, no lightheadedness, no palpitations, no syncope - Respiratory Respiratory: no cough, no dyspnea, no wheezing, no excessive phlegm production - Gastrointestinal Gastrointestinal: no abdominal pain, no diarrhea, no hematemesis, no hematochezia, no melena, no nausea, no vomiting - Genitourinary Genitourinary: no change in urinary stream, no dysuria, no flank pain, no hematuria - Musculoskeletal Musculoskeletal ROS IM: no numbness, no tingling - Integumentary Integumentary IM: no rash, no unusual bruising - Neurological Neurological ROS: no confusion, no convulsions, no focal weakness, no numbness, no tingling, no tremor(s) - Hematologic/Lymphatic Hematologic/Lymphatic: no easy bruising - Constitutional Vitals: Temp Pulse Resp BP Pulse Ox 97.9 F 83 16 159/67 99 09/06/16 11:54 09/06/16 13:45 09/06/16 13:45 09/06/16 13:45 09/06/16 13:45 General appearance: Present: A&O X 3, no acute distress - Head Head exam: Present: atraumatic, normocephalic - Eye Eye exam: Present: PERRL, conjuntiva pink, sclera anicteric Pupils: Present: PERRL - Neck Neck exam general surgery: Present: supple, trachea midline. Absent: lymphadenopathy - Respiratory Respiratory exam: Present: CTAB. Absent: accessory muscle use, rales, rhonchi, wheezes - Cardiovascular Cardiovascular exam: Present: RRR, +S1, +S2. Absent: diastolic murmur, gallop, rubs, systolic murmur - GI/Abdominal GI/Abdominal exam: Present: normal bowel sounds, soft, no peritoneal signs. Absent: distended, tenderness - Extremities Exam Extremities exam: Present: warm, radial pulses palpable and symetrical. Absent : calf tenderness, cyanotic, pedal edema - Neurological Exam Neurological exam: Present: CN II-XII intact, oriented X3, no focal deficits. Absent: pronater drift, facial droop, speech deficit - Expanded Neurological Exam Neurological exam expanded: Present: tremor - Psychiatric Psychiatric exam: Present: flat affect - Skin Skin exam: Present: dry, intact Internal Med - H&P Results - Labs CBC & Chem 7: 09/06/16 12:27 09/06/16 12:27
[2016-09-06 15:58] LABS: Hemoglobin A1C 5.4 %
[2016-09-06] MEDS: Furosemide 40 MG TABLET PO SCH (17:23)
[2016-09-06] MEDS: *HR* Rivaroxaban 15 MG TABLET PO SCH (17:24)
[2016-09-06] MEDS: amLODIPine 5 MG TABLET PO SCH (17:29)
[2016-09-06] MEDS: Insulin LISPRO 300 UNITS/3 ML VIAL SQ SCH ×2 (17:29→21:01)
[2016-09-06] MEDS: Acyclovir 200 MG CAPSULE PO SCH (20:57)
[2016-09-06] MEDS: Metoprolol XL (24 HR) Succ 50 MG TAB.ER.24H PO SCH (20:57)
[2016-09-06] MEDS ORDERED: Budesonide/Formoterol 160/4.5 MDI IH SCH (22:00)
[2016-09-07] MEDS ORDERED: *HR* LORazepam 2 MG/ML VIAL IVP ONE ×2 (00:06→09:22)
[2016-09-07 06:11] LABS: Basophils % 0.5 %; Eosinophils # 0.1 K/mcL (0.0-0.6); Eosinophils % 1.3 %; Hematocrit 33.1 % (35.3-44.9); Immature Granulocytes % 0.5 % (0-4); Lymphocytes # 1.3 K/mcL (0.6-4.6); Lymphocytes % 21.7 %; Mean Corpuscular HGB Conc 34.4 g/dL (31.6-35.5); Mean Corpuscular Hemoglobin 32.4 pg (28.0-33.3); Mean Platelet Volume 10.9 fL (9.4-12.4); Monocytes # 0.7 K/mcL (0.0-1.3); Monocytes % 10.9 %; Platelet Count 189 K/mcL (140-400); Red Blood Count 3.52 M/mcL (3.82-4.97); Red Cell Distribution Width 15.4 % (11.5-14.5); Segmented Neutrophils % 65.1 %
[2016-09-07 06:12] LABS: Hemoglobin 11.4 g/dL (11.5-15.4)
[2016-09-07] MEDS: Metoprolol XL (24 HR) Succ 50 MG TAB.ER.24H PO SCH ×2 (08:18→22:01)
[2016-09-07] MEDS: amLODIPine 5 MG TABLET PO SCH (08:18)
[2016-09-07] MEDS: Acyclovir 200 MG CAPSULE PO SCH ×2 (08:18→22:01)
[2016-09-07] MEDS: Isosorbide MONOnitrate (24 HR) 60 MG TAB.ER.24H PO SCH (08:19)
[2016-09-07] MEDS: Insulin LISPRO 300 UNITS/3 ML VIAL SQ SCH ×4 (08:21→22:04)
[2016-09-07 08:24] LABS: Alanine Aminotransferase 13 Units/L (0-55); Albumin 3.3 g/dL (3.5-5.0); Alkaline Phosphatase 86 Units/L (38-126); Aspartate Amino Transferase 14 Units/L (5-34); BUN/Creatinine Ratio 21 (6-26); Bilirubin,Total 0.6 mg/dL (0.2-1.2); Blood Urea Nitrogen 22 mg/dL (7-20); Carbon Dioxide 21 mEq/L (19-29); Chloride 111 mEq/L (98-109); Globulin 3.2 g/dL (2.4-3.5); Glucose 102 mg/dL (70-99); Osmolality,Calculated 288 (280-300); Sodium 137 mEq/L (136-145); Total Protein 6.5 g/dL (6.0-8.3); eGFR For African Americans > 60 (> 60); eGFR For Non-African Americans 52 (> 60)
[2016-09-07] MEDS: Budesonide/Formoterol 160/4.5 MDI IH SCH ×2 (09:12→20:37)
[2016-09-07] MEDS ORDERED: Albuterol 2.5 MG/3 ML NEBULIZER IH PRN (11:43)
--- NOTE | 2016-09-07 13:56 | Oncology Inp Consult Note ---
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 We recommend holding dasatinib through her hospital stay. I do not believe this is causing her confusion, however. She will be transitioned to nilotinib as an outpatient. I will defer further management to Dr. Barnes. (2) Altered mental status Status: Acute Assessment and plan: She may have had a TIA or possible CVA. Also her UTI may be the cause of her confusion. Her symptoms appear to have improved since being admitted although she is a bit drowsy during my exam today. Agree with MRI imaging and the excellent care the hospitalist has provided thus far. Again, do not believe this to be dasatinib related. Qualifiers: Altered mental status type: unspecified Qualified Code(s): R41.82 - Altered mental status, unspecified (3) Multiple myeloma Status: Chronic Assessment and plan: She has had a good response to her therapy. No active therapy is indicated. Qualifiers: Multiple myeloma remission status: in remission Qualified Code(s): C90.01 - Multiple myeloma in remission - Data of Consult Requesting Physician: Dg Evans MD Primary Care Provider: Jeffery Lane MD - Consult Narrative Reason for consult: CML, confusion History of present illness: Ms. Sanchez is a 76 year old female who is well-known to my partner, Dr. Barnes, who manages her multiple myeloma as well as CML. Regarding her multiple myeloma, she received Velcade and Decadron, transitioned to CyBoRD and later RVD completed in January 2014. This was followed by carfilzomib to which, pomalidomide was added in May 2014. Tierrae was transitioned to single agent pomalidomide through March of 2016. In March 2016, she was diagnosed with CML. She was started on dasatinib 140 mg daily but has had difficulty with tolerance secondary to diarrhea. Most recently she was taking 70 mg every other day. Patient presented yesterday with confusion. She states she had difficulty writing checks and completing thoughts. She denied any focal weakness or paresthesia. There may been some difficulty with speech per her She was brought to the emergency department for further evaluation. In the emergency department, chest x-ray and CT head were normal. CMP is within normal limits. CBC revealed a white count 6.1 hemoglobin 11.4 below count 189, 000. Urinalysis with trace leukocyte esterase and 5-50 white blood cells on microscopy. Few epithelial cells were identified. Urine cultures negative to date. She is currently a bit confused that she received sedation for an MRI. Her MRI was postponed secondary issues with a vascular stent. Past Med Surg Social Fam HX - Past Medical History Medical history: asthma, cancer (Multiple myeloma IgG kappa, CML), CHF, COPD, DVT, diabetes, hyperlipidemia, hypertension, pulmonary embolus, other Psychiatric history: anxiety, depression - Past Surgical History Surgical History: cholecystectomy, other (D&C, lumpectomy in 2008, 2016 cystoscopy) - Social History Smoking Status: Former smoker Smokeless Tobacco Status: No Alcohol use: none Drug use: none - Family History Father Hx Family Endocrine Disorder: Yes (father had diabetes) Medications and Allergies Amlodipine [Norvasc] 5 mg PO DAILY 11/12/14 [History] Cranberry Fruit Extract/Vit C [Azo Cranberry Softgel] 1 each PO DAILY 11/12/14 [ History] Ergocalciferol (VITAMIN D2) [Drisdol (50,000 Unit)] 50,000 unit PO QWEEK [History] Exenatide Microspheres [Bydureon] 2 mg SQ QWEEK 11/12/14 [History] Insulin LISPRO [Humalog Kwikpen U-200] 2 - 15 unit SQ ACHS 11/12/14 [History] Levothyroxine [Synthroid] 125 mcg PO DAILY 11/12/14 [History] Nitroglycerin 0.4 mg SL Q5MIN PRN 11/12/14 [History] Rosuvastatin [Crestor] 40 mg PO HS 11/12/14 [History] Saccharomyces Boulardii [Probiotic] 250 mg PO DAILY 11/12/14 [History] Loperamide [Imodium] 2 mg PO BID #60 capsule 05/04/16 [Rx] Budesonide/Formoterol 160/4.5 [Symbicort 160/4.5] 2 puff IH BID 05/22/16 [ History] Calcitriol [Rocaltrol] 0.25 mcg PO DAILY 05/22/16 [History] Isosorbide MONOnitrate [Isosorbide Mononitrate ER] 120 mg PO DAILY 05/22/16 [ History] Losartan Potassium [Cozaar] 100 mg PO DAILY 05/22/16 [History] Metformin HCl [Metformin HCl ER] 500 mg PO DAILY 05/22/16 [History] Metoprolol XL (24 HR) Succ [Toprol Xl] 100 mg PO BID 05/22/16 [History] Montelukast [Singulair] 10 mg PO DAILY 05/22/16 [History] Selenium 200 mcg PO DAILY 05/22/16 [History] Rivaroxaban [Xarelto] 15 mg PO DAILY #90 tablet 06/08/16 [Rx] LORazepam [Ativan] 0.5 mg PO TID PRN #21 tablet 06/22/16 [Rx] Polyethylene Glycol 3350 [MiraLAX Powder Bulk 17.9 Oz] 1 scoop PO AD #510 gm 09/02 [Rx] Albuterol Sulfate [Proair Hfa] 2 puff IH AD 07/10/16 [History] Potassium Chloride [Klor-Con] 50 meq PO TID 07/10/16 [History] Folic Acid 1 mg PO DAILY #90 tablet 07/31/16 [Rx] Megestrol Acetate [Megace] 400 mg PO BID #400 mls 08/07/16 [Rx] Nilotinib HCl [Tasigna] 2 tab PO BID #60 capsule 09/04/16 [Rx] Acyclovir [Zovirax] 400 mg PO BID 09/06/16 [History] Dasatinib [Sprycel] 70 mg PO DAILY 09/06/16 [History] Furosemide [Lasix] 40 mg PO Q48H 09/06/16 [History] Oxygen 2 l .ROUTE AD 09/06/16 [History] Allergies No Known Allergies Allergy (Verified 09/04/16 13:46) All systems: reviewed and no additional remarkable complaints except as stated Constitutional: Present: fatigue, malaise Neurological: Present: abnormal speech, lack of coordination Oncology - Exam - Constitutional Vitals: Temp Pulse Resp BP Pulse Ox 97.9 F 76 16 113/53 98 09/07/16 11:43 09/07/16 11:43 09/07/16 11:43 09/07/16 11:43 09/07/16 11:43 - Head Head exam: Present: atraumatic, normal inspection, normocephalic - Eye Eye exam: Present: conjuntiva pink, sclera anicteric - ENT ENT exam: Present: mucous membranes moist, normal oropharynx - Neck Neck exam: Present: full ROM, normal inspection - Respiratory Respiratory exam: Present: CTAB - Cardiovascular Cardiovascular exam: Present: RRR - GI/Abdominal GI/Abdominal exam: Present: normal bowel sounds, soft - Extremities Exam Extremities exam: Present: normal inspection - Neurological Exam Neurological exam: Present: alert, CN II-XII intact, oriented X3, no focal deficits, strengths equal and symetr throughout Oncology - Results - Labs Labs: Short CBC 09/07/16 Range/Units 03:37 WBC 6.1 (4.3-11.1) K/mcL Hgb 11.4 L D (11.5-15.4) g/dL Hct 33.1 L (35.3-44.9) % Plt Count 189 (140-400) K/mcL Neutrophils # 4.0 (1.6-8.9) K/mcL BMP 09/07/16 09/07/16 03:37 07:49 Sodium TNP 137 Potassium TNP 4.0 Chloride TNP 111 H Carbon Dioxide TNP 21 BUN TNP 22 H Creatinine TNP 1.03 Glucose TNP 102 H Calcium TNP 10.0 Liver Function 09/07/16 09/07/16 Range/Units 03:37 07:49 Total Bilirubin TNP 0.6 AST TNP 14 ALT TNP 13 Alkaline Phosphatase TNP 86 Albumin TNP 3.3 L Consult Discharge Plan - Plan Referrals: Jeffery Lane MD [Primary Care Provider] - 09/15/16 3:00 pm ()
[2016-09-07] MEDS: 0.9 % Sodium Chloride 1,000 ML IVC SCH (14:17)
--- NOTE | 2016-09-07 14:56 | Internal Med Progress Note ---
Date of Encounter: 09/07/16 Time of Encounter: 10:00 - Assessment and plan (1) Encephalopathy acute Current Visit: Yes Status: Acute Assessment and plan: Probably due to UTI or/and dehydration. We will continue treat underlying disease, closely monitor patient. - Improved after treatment (2) UTI (urinary tract infection) Current Visit: Yes Status: Acute Assessment and plan: Urinalysis shows UTI. However urine culture shows negative. Consider non- complicated UTI - We will continue Rocephin to finish a 3 day course Qualifiers: Urinary tract infection type: acute cystitis Hematuria presence: without hematuria Qualified Code(s): N30.00 - Acute cystitis without hematuria (3) Dehydration Current Visit: Yes Status: Acute Assessment and plan: Lab shows elevated butane with high BUN/creatinine ratio. Consider dehydration. Will give patient IV fluid for hydration. (4) Essential (primary) hypertension Current Visit: Yes Status: Acute Assessment and plan: BP is stable. Continue home medications. (5) Pulmonary embolism Current Visit: Yes Status: Acute Assessment and plan: History of PE. On xarelto now. Qualifiers: Chronicity: chronic Acute cor pulmonale presence: without acute cor pulmonale Qualified Code(s): I26.90 - Septic pulmonary embolism without acute cor pulmonale (6) CMML (chronic myelomonocytic leukemia) Current Visit: Yes Status: Acute Assessment and plan: Oncology is on case. Recommendation will be followed. Qualifiers: Leukemia Active/Remission status: without remission Qualified Code(s): C93.10 - Chronic myelomonocytic leukemia not having achieved remission (7) Multiple myeloma Current Visit: No Status: Chronic Assessment and plan: Will follow up with oncology recommendation Qualifiers: Multiple myeloma remission status: in remission Qualified Code(s): C90.01 - Multiple myeloma in remission (8) COPD (chronic obstructive pulmonary disease) Current Visit: No Status: Chronic Assessment and plan: Stable. No wheezing, continue home medications Qualifiers: COPD type: unspecified COPD Qualified Code(s): J44.9 - Chronic obstructive pulmonary disease, unspecified (9) DVT prophylaxis Current Visit: No Status: Acute Assessment and plan: Pt is on xarelto (10) Diabetes Current Visit: No Status: Chronic Assessment and plan: Continue sliding scale coverage Qualifiers: Diabetes mellitus type: type 2 Diabetes mellitus complication status: without complication Diabetes mellitus buttermaker helper insulin use: with buttermaker helper use Qualified Code(s): E11.9 - Type 2 diabetes mellitus without complications ; Z79.4 - residential (current) use of insulin - Time Spent With Patient 25 - 35 minutes - Subjective Interval history: Patient is a 76-year-old female admitted for altered mental status. Her past medical history is significant for CML, multiple myeloma, diabetes, CHF, COPD, history of pulmonary embolism, hypertension. Patient was seen and examined. Her mental status has improved after treatment. Still a little bit confusing. Patient knows she is in [facility], today' s date, and the name of president. Vitals are stable. 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 Oncology consult appreciated. We will continue antibiotic for UTI and give patient hydration, closely monitor patient. - Constitutional Vitals: Temp Pulse Resp BP Pulse Ox 97.9 F 76 16 113/53 98 09/07/16 11:43 09/07/16 11:43 09/07/16 11:43 09/07/16 11:43 09/07/16 11:43 General appearance: Present: A&O X 3, no acute distress, answers questions appropriately - Head Head exam: Present: atraumatic, normocephalic - Eye Eye exam: Present: PERRL, conjuntiva pink, sclera anicteric Pupils: Present: PERRL - Neck Neck exam general surgery: Present: supple, trachea midline. Absent: lymphadenopathy - Respiratory Respiratory exam: Present: CTAB. Absent: accessory muscle use, rales, rhonchi, wheezes - Cardiovascular Cardiovascular exam: Present: RRR, +S1, +S2. Absent: diastolic murmur, gallop, rubs, systolic murmur - GI/Abdominal GI/Abdominal exam: Present: normal bowel sounds, soft, no peritoneal signs. Absent: distended, tenderness - Extremities Exam Extremities exam: Present: warm, radial pulses palpable and symetrical. Absent : calf tenderness, cyanotic, pedal edema - Neurological Exam Neurological exam: Present: CN II-XII intact, oriented X3, no focal deficits. Absent: pronater drift, facial droop, speech deficit - Skin Skin exam: Present: dry, intact Internal Medicine: Result - Labs CBC & Chem 7: 09/07/16 03:37 09/07/16 07:49 Labs: Short CBC 09/07/16 Range/Units 03:37 WBC 6.1 (4.3-11.1) K/mcL Hgb 11.4 L D (11.5-15.4) g/dL Hct 33.1 L (35.3-44.9) % Plt Count 189 (140-400) K/mcL Neutrophils # 4.0 (1.6-8.9) K/mcL BMP 09/07/16 09/07/16 03:37 07:49 Sodium TNP 137 Potassium TNP 4.0 Chloride TNP 111 H Carbon Dioxide TNP 21 BUN TNP 22 H Creatinine TNP 1.03 Glucose TNP 102 H Calcium TNP 10.0 Liver Function 09/07/16 09/07/16 Range/Units 03:37 07:49 Total Bilirubin TNP 0.6 AST TNP 14 ALT TNP 13 Alkaline Phosphatase TNP 86 Albumin TNP 3.3 L - Impressions Impressions Brain MRI 09/07/16 09:37 IMPRESSION: 1. 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 2. No evidence of metastatic disease in the cerebral or cerebellar parenchyma. 3. Cerebral and cerebellar parenchymal volume loss with minimal chronic microvascular white matter ischemic disease. D/ / 09/07/2016 14:20:55 Christopher Faustin MD / mc Interpreting Provider: Christopher Faustin MD - VTE Documentation of Mechanical Device: Intermittent pneumatic compression device Consult Discharge Plan - Plan Referrals: Jeffery Lane MD [Primary Care Provider] - 09/15/16 3:00 pm ()
[2016-09-07] MEDS: *HR* Rivaroxaban 15 MG TABLET PO SCH (17:05)
--- NOTE | 2016-09-07 17:31 | Electrocardiograph Report ---
[place] [id number] Test Date: 2016-09-06 Pat Name: Adriana Sanchez Department: 105 Room: 2A12 Gender: F Lean Leader: : 1940 Requested By: Arpit Francisco Order Number: [id number] Reading MD: Zohaib Orantes Measurements Intervals Ashley Rate: 79 P: 55 MO: 185 QRS: 9 QRSD: 94 T: 3 QT: 355 QTc: 390 Interpretive Statements SINUS RHYTHM WITH OCCASIONAL SUPRAVENTRICULAR PREMATURE COMPLEXES LOW QRS VOLTAGE IN EXTREMITY LEADS Electronically Signed On 09-07-2016 17:30:00 EDT by Zohaib Orantes
[2016-09-08] MEDS: 0.9 % Sodium Chloride 1,000 ML IVC SCH ×2 (00:45→14:33)
[2016-09-08] MEDS ORDERED: Nitroglycerin 0.4 MG TAB.SUBL SL PRN (07:22)
[2016-09-08] MEDS ORDERED: Polyethylene Glycol 3350 255 GM POWDER PO SCH (07:30)
[2016-09-08] MEDS: Budesonide/Formoterol 160/4.5 MDI IH SCH ×2 (07:44→19:40)
[2016-09-08 07:46] LABS: BUN/Creatinine Ratio 24 (6-26); Blood Urea Nitrogen 21 mg/dL (7-20); Calcium 9.4 mg/dL (8.6-10.8); Carbon Dioxide 20 mEq/L (19-29); Chloride 113 mEq/L (98-109); Glucose 98 mg/dL (70-99); Osmolality,Calculated 287 (280-300); Potassium 3.9 mEq/L (3.5-4.5); Sodium 137 mEq/L (136-145); eGFR For African Americans > 60 (> 60); eGFR For Non-African Americans > 60 (> 60)
[2016-09-08 07:58] LABS: Basophils % 0.6 %; Eosinophils # 0.1 K/mcL (0.0-0.6); Eosinophils % 2.2 %; Hematocrit 31.7 % (35.3-44.9); Hemoglobin 10.5 g/dL (11.5-15.4); Immature Granulocytes % 0.6 % (0-4); Lymphocytes # 1.4 K/mcL (0.6-4.6); Lymphocytes % 26.9 %; Mean Corpuscular HGB Conc 33.1 g/dL (31.6-35.5); Mean Corpuscular Hemoglobin 31.1 pg (28.0-33.3); Mean Corpuscular Volume 93.8 fL (83.0-100.0); Mean Platelet Volume 10.6 fL (9.4-12.4); Monocytes # 0.5 K/mcL (0.0-1.3); Monocytes % 10.4 %; Platelet Count 192 K/mcL (140-400); Red Blood Count 3.38 M/mcL (3.82-4.97); Red Cell Distribution Width 15.4 % (11.5-14.5); Segmented Neutrophils % 59.3 %
[2016-09-08] MEDS: Insulin LISPRO 300 UNITS/3 ML VIAL SQ SCH ×4 (08:37→21:12)
[2016-09-08] MEDS: amLODIPine 5 MG TABLET PO SCH (08:49)
[2016-09-08] MEDS: Isosorbide MONOnitrate (24 HR) 60 MG TAB.ER.24H PO SCH (08:49)
[2016-09-08] MEDS: Lactobacillus 1 EACH CAP.SPRINK PO SCH (08:49)
[2016-09-08] MEDS: Acyclovir 200 MG CAPSULE PO SCH ×2 (08:49→21:15)
[2016-09-08] MEDS: Metoprolol XL (24 HR) Succ 50 MG TAB.ER.24H PO SCH ×2 (08:50→21:15)
[2016-09-08] MEDS ORDERED: SACCHAROMYCES BOULARDII 250 MG PO SCH (09:00)
[2016-09-08] MEDS: Furosemide 40 MG TABLET PO SCH (14:34)
--- NOTE | 2016-09-08 16:01 | Internal Med Progress Note ---
Date of Encounter: 09/08/16 Time of Encounter: 10:00 - Assessment and plan (1) Encephalopathy acute Current Visit: Yes Status: Acute Assessment and plan: Probably due to UTI or/and dehydration. We will continue treat underlying disease, closely monitor patient. - Improved after treatment (2) UTI (urinary tract infection) Current Visit: Yes Status: Acute Assessment and plan: Urinalysis shows UTI. However urine culture shows negative. Consider non- complicated UTI - We will continue Rocephin to finish a 3 day course Qualifiers: Urinary tract infection type: acute cystitis Hematuria presence: without hematuria Qualified Code(s): N30.00 - Acute cystitis without hematuria (3) Dehydration Current Visit: Yes Status: Acute Assessment and plan: Lab shows elevated BUN with high BUN/creatinine ratio. Consider dehydration. Will give patient IV fluid for hydration. (4) Essential (primary) hypertension Current Visit: Yes Status: Acute Assessment and plan: BP is stable. Continue home medications. (5) Pulmonary embolism Current Visit: Yes Status: Acute Assessment and plan: History of PE. On xarelto now. Qualifiers: Chronicity: chronic Acute cor pulmonale presence: without acute cor pulmonale Qualified Code(s): I26.90 - Septic pulmonary embolism without acute cor pulmonale (6) CMML (chronic myelomonocytic leukemia) Current Visit: Yes Status: Acute Assessment and plan: Oncology is on case. Recommendation will be followed. Qualifiers: Leukemia Active/Remission status: without remission Qualified Code(s): C93.10 - Chronic myelomonocytic leukemia not having achieved remission (7) Multiple myeloma Current Visit: No Status: Chronic Assessment and plan: Will follow up with oncology recommendation Qualifiers: Multiple myeloma remission status: in remission Qualified Code(s): C90.01 - Multiple myeloma in remission (8) COPD (chronic obstructive pulmonary disease) Current Visit: No Status: Chronic Assessment and plan: Stable. No wheezing, continue home medications Qualifiers: COPD type: unspecified COPD Qualified Code(s): J44.9 - Chronic obstructive pulmonary disease, unspecified (9) DVT prophylaxis Current Visit: No Status: Acute Assessment and plan: Pt is on xarelto (10) Diabetes Current Visit: No Status: Chronic Assessment and plan: Continue sliding scale coverage Qualifiers: Diabetes mellitus type: type 2 Diabetes mellitus complication status: without complication Diabetes mellitus moth exterminator insulin use: with moth exterminator use Qualified Code(s): E11.9 - Type 2 diabetes mellitus without complications ; 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 Her past medical history is significant for CML, multiple myeloma, diabetes, CHF, COPD, history of pulmonary embolism, hypertension. Patient was seen and examined. Her mental status has improved. Oriented 3. Patient's insisted it is not her baseline yet because she can write a check before but not right now. Vitals are stable. We will continue antibiotic for UTI and give patient hydration, PT OT evaluation. - Constitutional Vitals: Temp Pulse Resp BP Pulse Ox 98.1 F 84 16 150/67 98 09/08/16 15:41 09/08/16 15:41 09/08/16 15:41 09/08/16 15:41 09/08/16 15:41 General appearance: Present: A&O X 3, no acute distress, answers questions appropriately - Head Head exam: Present: atraumatic, normocephalic - Eye Eye exam: Present: PERRL, conjuntiva pink, sclera anicteric Pupils: Present: PERRL - Neck Neck exam general surgery: Present: supple, trachea midline. Absent: lymphadenopathy - Respiratory Respiratory exam: Present: CTAB. Absent: accessory muscle use, rales, rhonchi, wheezes - Cardiovascular Cardiovascular exam: Present: RRR, +S1, +S2. Absent: diastolic murmur, gallop, rubs, systolic murmur - GI/Abdominal GI/Abdominal exam: Present: normal bowel sounds, soft, no peritoneal signs. Absent: distended, tenderness - Extremities Exam Extremities exam: Present: warm, radial pulses palpable and symetrical. Absent : calf tenderness, cyanotic, pedal edema - Neurological Exam Neurological exam: Present: CN II-XII intact, oriented X3, no focal deficits. Absent: pronater drift, facial droop, speech deficit - Skin Skin exam: Present: dry, intact Internal Medicine: Result - Labs CBC & Chem 7: 09/08/16 06:45 09/08/16 06:45 Labs: Short CBC 09/08/16 Range/Units 06:45 WBC 5.1 (4.3-11.1) K/mcL Hgb 10.5 L (11.5-15.4) g/dL Hct 31.7 L (35.3-44.9) % Plt Count 192 (140-400) K/mcL Neutrophils # 3.0 (1.6-8.9) K/mcL BMP 09/08/16 06:45 Sodium 137 Potassium 3.9 Chloride 113 H Carbon Dioxide 20 BUN 21 H Creatinine 0.87 Glucose 98 Calcium 9.4 - VTE Documentation of Mechanical Device: Intermittent pneumatic compression device Consult Discharge Plan - Plan Referrals: Jeffery Lane MD [Primary Care Provider] - 09/15/16 3:00 pm ()
[2016-09-08] MEDS ORDERED: 0.9 % Sodium Chloride 1,000 ML IVC SCH (16:05)
[2016-09-08] MEDS: *HR* Rivaroxaban 15 MG TABLET PO SCH (16:37)
--- NOTE | 2016-09-08 20:09 | Oncology Inp Progress Note ---
Date of Encounter: 09/11/16 Time of Encounter: 20:06 (1) CML (chronic myelocytic leukemia) Current Visit: Yes Status: Acute Assessment and plan: CML and axillary to face. Given her history of congestive heart failure started on dasatinib. She had rough time with dasatinib even with multiple dose reductions. We will hold further dasatinib. She had a excellent response so far. Her BCR ABL P210 has improved from 35% on 03/08/2016 to 0.02% on 2016. I doubt her current confusion is related to dasatinib. Once discharged would plan on switching her to nilotinib . Per conversation that day she does not want to start anything at this time. We will give her a break and when she is ready may try her on nilotinib and start her at a lower dose because she is concerned about the cardiac complications including QT prolongation and fluid buildup (2) Multiple myeloma Current Visit: No Status: Chronic Assessment and plan: Had multiple treatments as mentioned in the previous note. Her last treatment was Pomalidomide which was stopped on initiation of dasatinib for CLL. Her myeloma is not very active. MRI brain September 06, 2016 did show multiple lytic lesion in the calvarium . Cerebral and cerebellar parenchymal volume loss with chronic microvascular white matter ischemic changes Qualifiers: Multiple myeloma remission status: in remission Qualified Code(s): C90.01 - Multiple myeloma in remission Oncology: Subj Interval history: She is very depressed. She is not interested in taking many medication. She went through many cancers and she wants a break from all treatment. Overall her symptoms have improved since admission - Constitutional Vitals: Vital Signs Temp Pulse Resp BP Pulse Ox 09/08/16 19:49 98.3 F 69 16 141/65 98 09/08/16 15:41 98.1 F 84 16 150/67 98 09/08/16 14:40 98 09/08/16 11:31 98.7 F 86 16 147/73 99 09/08/16 07:57 97.7 F 86 16 132/68 99 09/08/16 07:44 16 99 09/08/16 04:22 98.4 F 78 16 121/62 99 09/08/16 00:55 98.5 F 82 15 115/66 98 09/07/16 21:28 98.1 F 82 15 115/60 97 09/07/16 20:37 12 97 Intake and Output 09/08/16 09/08/16 09/08/16 07:59 15:59 23:59 Intake Total 1300 / 1300 1500 / 1500 100 / 100 Balance 1300 / 1300 1500 / 1500 100 / 100 Intake: IV Fluids 1000 / 1000 1000 / 1000 0.9 % Sodium Chloride 1, 1000 / 1000 1000 / 1000 000 ML @ 90 mls/hr IVC . [id number] DAVID Rx#:[id number] Oral 300 / 300 500 / 500 100 / 100 Other: Meal Lunch Dinner Percent of Meal Consumed 75% 60% # Voids 3 3 Weight 76.839 kg 76.83 kg Blood Glucose* 90 99 124 Patient Weight 09/08/16 23:59 Weight 76.83 kg Oncology: Obj Data - Labs CBC & Chem 7: 09/09/16 04:44 09/10/16 04:51 Labs: Laboratory Results - last 24 hr 09/07/16 09/07/16 09/08/16 19:45 22:01 06:45 WBC 5.1 RBC 3.38 L Hgb 10.5 L Hct 31.7 L MCV 93.8 MCH 31.1 MCHC 33.1 RDW 15.4 H Plt Count 192 MPV 10.6 Immature Gran % 0.6 Seg Neutrophils % 59.3 Lymphocytes % 26.9 Monocytes % 10.4 Eosinophils % 2.2 Basophils % 0.6 Neutrophils # 3.0 Lymphocytes # 1.4 Monocytes # 0.5 Eosinophils # 0.1 Basophils # 0.0 Sodium Potassium Chloride Carbon Dioxide BUN Creatinine Est GFR ( Amer) Est GFR (Non-Af Amer) BUN/Creatinine Ratio Glucose POC Glucose 161 H 131 H Calculated Osmolality Calcium Magnesium 09/08/16 09/08/16 09/08/16 06:45 08:02 11:30 WBC RBC Hgb Hct MCV MCH MCHC RDW Plt Count MPV Immature Gran % Seg Neutrophils % Lymphocytes % Monocytes % Eosinophils % Basophils % Neutrophils # Lymphocytes # Monocytes # Eosinophils # Basophils # Sodium 137 Potassium 3.9 Chloride 113 H Carbon Dioxide 20 BUN 21 H Creatinine 0.87 Est GFR ( Amer) > 60 Est GFR (Non-Af Amer) > 60 BUN/Creatinine Ratio 24 Glucose 98 POC Glucose 90 H 99 H Calculated Osmolality 287 Calcium 9.4 Magnesium 2.0 09/08/16 16:59 WBC RBC Hgb Hct MCV MCH MCHC RDW Plt Count MPV Immature Gran % Seg Neutrophils % Lymphocytes % Monocytes % Eosinophils % Basophils % Neutrophils # Lymphocytes # Monocytes # Eosinophils # Basophils # Sodium Potassium Chloride Carbon Dioxide BUN Creatinine Est GFR ( Amer) Est GFR (Non-Af Amer) BUN/Creatinine Ratio Glucose POC Glucose 124 H Calculated Osmolality Calcium Magnesium Consult Discharge Plan - Plan Instructions: Pulmonary Embolism (DC), Chronic Hypertension (DC) Referrals: Jeffery Lane MD [Primary Care Provider] - 09/15/16 3:00 pm () Prescriptions: Cyanocobalamin (B-12) [Vitamin B12] 1,000 mcg PO DAILY #30 tablet
[2016-09-09 05:20] LABS: Basophils % 0.4 %; Eosinophils # 0.1 K/mcL (0.0-0.6); Eosinophils % 2.2 %; Hematocrit 28.7 % (35.3-44.9); Hemoglobin 9.7 g/dL (11.5-15.4); Immature Granulocytes % 0.7 % (0-4); Lymphocytes # 1.3 K/mcL (0.6-4.6); Lymphocytes % 28.2 %; Mean Corpuscular HGB Conc 33.8 g/dL (31.6-35.5); Mean Corpuscular Hemoglobin 31.2 pg (28.0-33.3); Mean Corpuscular Volume 92.3 fL (83.0-100.0); Mean Platelet Volume 10.7 fL (9.4-12.4); Monocytes # 0.5 K/mcL (0.0-1.3); Monocytes % 10.1 %; Neutrophils # 2.7 K/mcL (1.6-8.9); Platelet Count 178 K/mcL (140-400); Red Blood Count 3.11 M/mcL (3.82-4.97); Red Cell Distribution Width 15.3 % (11.5-14.5); Segmented Neutrophils % 58.4 %
[2016-09-09 05:32] LABS: BUN/Creatinine Ratio 21 (6-26); Blood Urea Nitrogen 16 mg/dL (7-20); Calcium 8.9 mg/dL (8.6-10.8); Carbon Dioxide 17 mEq/L (19-29); Chloride 114 mEq/L (98-109); Glucose 99 mg/dL (70-99); Osmolality,Calculated 289 (280-300); Potassium 3.1 mEq/L (3.5-4.5); Sodium 139 mEq/L (136-145); eGFR For African Americans > 60 (> 60); eGFR For Non-African Americans > 60 (> 60)
[2016-09-09 06:05] LABS: Folate 13.6 ng/mL (7.0-31.4)
[2016-09-09 06:06] LABS: Vitamin B12 < 109 pg/mL (213-816)
[2016-09-09] MEDS: Budesonide/Formoterol 160/4.5 MDI IH SCH ×2 (07:34→19:47)
[2016-09-09] MEDS: Metoprolol XL (24 HR) Succ 50 MG TAB.ER.24H PO SCH ×2 (07:45→20:29)
[2016-09-09] MEDS: Lactobacillus 1 EACH CAP.SPRINK PO SCH (07:45)
[2016-09-09] MEDS: Insulin LISPRO 300 UNITS/3 ML VIAL SQ SCH ×4 (07:45→20:43)
[2016-09-09] MEDS: Acyclovir 200 MG CAPSULE PO SCH ×2 (07:46→20:28)
[2016-09-09] MEDS: Isosorbide MONOnitrate (24 HR) 60 MG TAB.ER.24H PO SCH (07:46)
[2016-09-09] MEDS: amLODIPine 5 MG TABLET PO SCH (07:47)
--- NOTE | 2016-09-09 11:20 | Discharge Summary ---
Date of Encounter: 09/09/16 Time of Encounter: 10:00 - Discharge Diagnosis (1) Encephalopathy acute Priority: Primary Status: Acute (2) UTI (urinary tract infection) Priority: Primary Status: Acute Qualifiers: Urinary tract infection type: acute cystitis Hematuria presence: without hematuria Qualified Code(s): N30.00 - Acute cystitis without hematuria (3) Dehydration Priority: Primary Status: Acute (4) Essential (primary) hypertension Priority: Secondary Status: Acute (5) Pulmonary embolism Priority: Secondary Status: Acute Qualifiers: Chronicity: chronic Acute cor pulmonale presence: without acute cor pulmonale Qualified Code(s): I26.90 - Septic pulmonary embolism without acute cor pulmonale (6) CMML (chronic myelomonocytic leukemia) Priority: Secondary Status: Acute Qualifiers: Leukemia Active/Remission status: without remission Qualified Code(s): C93.10 - Chronic myelomonocytic leukemia not having achieved remission (7) Multiple myeloma Priority: Secondary Status: Chronic Qualifiers: Multiple myeloma remission status: in remission Qualified Code(s): C90.01 - Multiple myeloma in remission (8) COPD (chronic obstructive pulmonary disease) Priority: Secondary Status: Chronic Qualifiers: COPD type: unspecified COPD Qualified Code(s): J44.9 - Chronic obstructive pulmonary disease, unspecified (9) DVT prophylaxis Priority: Secondary Status: Acute (10) Diabetes Priority: Secondary Status: Chronic Qualifiers: Diabetes mellitus type: type 2 Diabetes mellitus complication status: without complication 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 Qualified Code(s): E11.9 - Type 2 diabetes mellitus without complications ; Z79.4 - custodial (current) use of insulin (11) Vitamin B 12 deficiency Priority: Primary Status: Chronic - Discharge Medications Prescriptions: Cyanocobalamin (B-12) [Vitamin B12] 1,000 mcg PO DAILY #30 tablet Home Medications: Amlodipine [Norvasc] 5 mg PO DAILY 11/12/14 [History] Cranberry Fruit Extract/Vit C [Azo Cranberry Softgel] 1 each PO DAILY 11/12/14 [ History] Ergocalciferol (VITAMIN D2) [Drisdol (50,000 Unit)] 50,000 unit PO QWEEK [History] Exenatide Microspheres [Bydureon] 2 mg SQ QWEEK 11/12/14 [History] Insulin LISPRO [Humalog Kwikpen U-200] 2 - 15 unit SQ ACHS 11/12/14 [History] Levothyroxine [Synthroid] 125 mcg PO DAILY 11/12/14 [History] Nitroglycerin 0.4 mg SL Q5MIN PRN 11/12/14 [History] Rosuvastatin [Crestor] 40 mg PO HS 11/12/14 [History] Saccharomyces Boulardii [Probiotic] 250 mg PO DAILY 11/12/14 [History] Loperamide [Imodium] 2 mg PO BID #60 capsule 05/04/16 [Rx] Budesonide/Formoterol 160/4.5 [Symbicort 160/4.5] 2 puff IH BID 05/22/16 [ History] Calcitriol [Rocaltrol] 0.25 mcg PO DAILY 05/22/16 [History] Isosorbide MONOnitrate [Isosorbide Mononitrate ER] 120 mg PO DAILY 05/22/16 [ History] Losartan Potassium [Cozaar] 100 mg PO DAILY 05/22/16 [History] Metformin HCl [Metformin HCl ER] 500 mg PO DAILY 05/22/16 [History] Metoprolol XL (24 HR) Succ [Toprol Xl] 100 mg PO BID 05/22/16 [History] Montelukast [Singulair] 10 mg PO DAILY 05/22/16 [History] Selenium 200 mcg PO DAILY 05/22/16 [History] Rivaroxaban [Xarelto] 15 mg PO DAILY #90 tablet 06/08/16 [Rx] LORazepam [Ativan] 0.5 mg PO TID PRN #21 tablet 06/22/16 [Rx] Polyethylene Glycol 3350 [MiraLAX Powder Bulk 17.9 Oz] 1 scoop PO AD #510 gm 09/02 [Rx] Albuterol Sulfate [Proair Hfa] 2 puff IH AD 07/10/16 [History] Potassium Chloride [Klor-Con] 50 meq PO TID 07/10/16 [History] Folic Acid 1 mg PO DAILY #90 tablet 07/31/16 [Rx] Megestrol Acetate [Megace] 400 mg PO BID #400 mls 08/07/16 [Rx] Acyclovir [Zovirax] 400 mg PO BID 09/06/16 [History] Furosemide [Lasix] 40 mg PO Q48H 09/06/16 [History] Oxygen 2 l .ROUTE AD 09/06/16 [History] Nilotinib HCl [Tasigna] 2 tab PO BID #120 capsule 09/08/16 [Rx] Cyanocobalamin (B-12) [Vitamin B12] 1,000 mcg PO DAILY #30 tablet 09/09/16 [Rx] Allergies/Adverse Reactions: Allergies No Known Allergies Allergy (Verified 09/04/16 13:46) Procedures/tests Complete & Pending: Procedures Performed prior 72 hours Category Date Time Status MR head/brain wo/w con [MR] Routine MRI 09/07/16 09:37 Completed - Notes to Outpatient Provider 1. Patient was found the vitamin B-12 deficiency, with a vitamin B12 level lower than 109, vitamin B-12 1000 mg by mouth daily started, please a further follow-up vitamin B12 level, if not improved, may need to start injection. Date of admission: 09/06/16 14:26 Primary care physician: Jeffery Lane MD Consults: 09/06/16 15:41 Consult to Oncology [CONS] Routine Consulting Provider: Oncology [facility] Reason for Consult: CML on chemo. Now with altered mental status Call Completed: Yes 09/06/16 16:34 Consult to Nutrition [CONS] Routine Comment: Consulting Provider: NUTRITION Reason for Dietary Consult: MST Score Consult to Pastoral Services [CONS] Routine Comment: 09/08/16 08:48 Consult to Occupational Therapy [CONS] Routine Comment: Evaluate, develop and implement POC Reason for Consult: Function not at baseline Consult to Physical Therapy [CONS] Routine Comment: Evaluate, develop and implement POC Reason for Consult: Function not at baseline Discharging clinician: Dg Evans Anticipated date of discharge: 09/09/16 - Patient Status Disposition: Home Health Service Condition: Good Functional capacity at discharge: uses cane/walker Overall status at discharge: patient is back to baseline - Discharge Instructions Follow Up With: Jeffery Lane MD [Primary Care Provider] - 09/15/16 3:00 pm () - Diet and Activity Activity: increase activity as tolerated Diet: diabetic diet, low fat, low cholesterol, low salt diet Interval History: Ms. Sanchez is a 76 year old female hypertension, diabetes, history PE and leukemia on chemotherapy who presented to [facility] on 2016 with confusion and altered speech. She was admitted for further workup and treatment. Information obtained from chart review and at bedside as patient says she does not remember events. Per patient has been intermittently confused over the last 3 days. Says she has forgotten to take her medication does not realize that she is taking her medication she appears to zone out at times stops talking mid-sentence. Says she has trouble finding what words she wants to say. On exam the patient is alert and oriented 4 inches all questions appropriately. her only complaint is being cold, she is not aware of confusion or altered speech. No CP, no SOB, no blurred vision or headaches no numbness or tingling Hospital course: Ms. Sanchez is a 76 year old female admitted for acute altered mental status. Patient was found to UTI, she was treated with antibiotics. Urine culture negative, antibiotics discontinued after 3 days course. Patient also treated with hydration for dehydration. Her BUN level get Down after treatment. MRI has been done, shows chronic microvascular ischemic change. Patient has a history of CML and multiple myeloma, oncology consult was called and saw patient. Patient will continue follow-up with oncology as outpatient. Patient was found vitamin B12 deficiency, vitamin B12 supplement started and will continue as outpatient. After treatment, patient's condition has improved. PTOT evaluation saw patient, not recommended ECF at discharge. Patient without discharge home with home health and to follow-up with PCP and oncology as outpatient. I saw and examined the patient today. She is awake alert, oriented 3. Patient 's said it is about her baseline now. Vitals are stable. Labs shows hypokalemia, potassium supplement will be given. Patient will discharge home with home health and follow-up as outpatient with PCP and oncologist - Time Spent with Patient Total time spent providing and/or coordinating discharge services: 40 min Greater than 30 minutes - Constitutional Vitals: Temp Pulse Resp BP Pulse Ox 98.4 F 82 16 149/74 99 09/09/16 07:41 09/09/16 07:41 09/09/16 07:41 09/09/16 07:41 09/09/16 07:41 General appearance: Present: A&O X 3, no acute distress, answers questions appropriately - Head Head exam: Present: atraumatic, normocephalic - Eye Eye exam: Present: PERRL, conjuntiva pink, sclera anicteric Pupils: Present: PERRL - Neck Neck exam general surgery: Present: supple, trachea midline. Absent: lymphadenopathy - Respiratory Respiratory exam: Present: CTAB. Absent: accessory muscle use, rales, rhonchi, wheezes - Cardiovascular Cardiovascular exam: Present: RRR, +S1, +S2. Absent: diastolic murmur, gallop, rubs, systolic murmur - GI/Abdominal GI/Abdominal exam: Present: normal bowel sounds, soft, no peritoneal signs. Absent: distended, tenderness - Extremities Exam Extremities exam: Present: warm, radial pulses palpable and symetrical. Absent : calf tenderness, cyanotic, pedal edema - Neurological Exam Neurological exam: Present: CN II-XII intact, oriented X3, no focal deficits. Absent: pronater drift, facial droop, speech deficit - Skin Skin exam: Present: dry, intact - VTE Documentation of Mechanical Device: Intermittent pneumatic compression device
--- NOTE | 2016-09-09 11:47 | Physician Discharge Referral ---
Home Health/Hosp Referral Info Transfer to: Home Health Provider in Charge Post Discharge: PCP - Diagnosis (1) Encephalopathy acute Status: Acute (2) UTI (urinary tract infection) Status: Acute (3) Dehydration Status: Acute (4) Essential (primary) hypertension Status: Acute (5) Pulmonary embolism Status: Acute (6) CMML (chronic myelomonocytic leukemia) Status: Acute (7) Multiple myeloma Status: Chronic (8) COPD (chronic obstructive pulmonary disease) Status: Chronic (9) DVT prophylaxis Status: Acute (10) Diabetes Status: Chronic (11) Vitamin B 12 deficiency Status: Chronic - Respiratory Orders Oxygen / L per min (2-3) Smoking Cessation: Smoking cessation has been advised. For more information, call the [employer] Quit Line at 3-789-FKJE-NOW. - Diet/Nutrition Diet/Nutrition Orders: Cardiac, No Concentrated Sweets - Activity Activity Orders: Ambulate - Services Needed Following services are medically necessary services: Nursing, Home Health Aide - Transfer Medications Prescriptions: Cyanocobalamin (B-12) [Vitamin B12] 1,000 mcg PO DAILY #30 tablet Home Medications: Amlodipine [Norvasc] 5 mg PO DAILY 11/12/14 [History] Cranberry Fruit Extract/Vit C [Azo Cranberry Softgel] 1 each PO DAILY 11/12/14 [ History] Ergocalciferol (VITAMIN D2) [Drisdol (50,000 Unit)] 50,000 unit PO QWEEK [History] Exenatide Microspheres [Bydureon] 2 mg SQ QWEEK 11/12/14 [History] Insulin LISPRO [Humalog Kwikpen U-200] 2 - 15 unit SQ ACHS 11/12/14 [History] Levothyroxine [Synthroid] 125 mcg PO DAILY 11/12/14 [History] Nitroglycerin 0.4 mg SL Q5MIN PRN 11/12/14 [History] Rosuvastatin [Crestor] 40 mg PO HS 11/12/14 [History] Saccharomyces Boulardii [Probiotic] 250 mg PO DAILY 11/12/14 [History] Loperamide [Imodium] 2 mg PO BID #60 capsule 05/04/16 [Rx] Budesonide/Formoterol 160/4.5 [Symbicort 160/4.5] 2 puff IH BID 05/22/16 [ History] Calcitriol [Rocaltrol] 0.25 mcg PO DAILY 05/22/16 [History] Isosorbide MONOnitrate [Isosorbide Mononitrate ER] 120 mg PO DAILY 05/22/16 [ History] Losartan Potassium [Cozaar] 100 mg PO DAILY 05/22/16 [History] Metformin HCl [Metformin HCl ER] 500 mg PO DAILY 05/22/16 [History] Metoprolol XL (24 HR) Succ [Toprol Xl] 100 mg PO BID 05/22/16 [History] Montelukast [Singulair] 10 mg PO DAILY 05/22/16 [History] Selenium 200 mcg PO DAILY 05/22/16 [History] Rivaroxaban [Xarelto] 15 mg PO DAILY #90 tablet 06/08/16 [Rx] LORazepam [Ativan] 0.5 mg PO TID PRN #21 tablet 06/22/16 [Rx] Polyethylene Glycol 3350 [MiraLAX Powder Bulk 17.9 Oz] 1 scoop PO AD #510 gm 09/02 [Rx] Albuterol Sulfate [Proair Hfa] 2 puff IH AD 07/10/16 [History] Potassium Chloride [Klor-Con] 50 meq PO TID 07/10/16 [History] Folic Acid 1 mg PO DAILY #90 tablet 07/31/16 [Rx] Megestrol Acetate [Megace] 400 mg PO BID #400 mls 08/07/16 [Rx] Acyclovir [Zovirax] 400 mg PO BID 09/06/16 [History] Furosemide [Lasix] 40 mg PO Q48H 09/06/16 [History] Oxygen 2 l .ROUTE AD 09/06/16 [History] Nilotinib HCl [Tasigna] 2 tab PO BID #120 capsule 09/08/16 [Rx] Cyanocobalamin (B-12) [Vitamin B12] 1,000 mcg PO DAILY #30 tablet 09/09/16 [Rx] Allergies/Adverse Reactions: Allergies No Known Allergies Allergy (Verified 09/04/16 13:46) Certification: Further, I certify that my clinical findings support that this patient is homebound (i.e. absences from home require considerable and taxing effort and are for medical reasons or evangelical services or infrequently or short duration when for other reasons) because: Homebound Reason: Severity of cardiac or pulmonary status limits activity tolerance Attestation: My signature below is to certify that this patient is under my care and that I, or nurse practitioner, or a physician's car rental sales assistant working with me, has a face-to -face encounter with this patient.
[2016-09-09] MEDS ORDERED: Potassium Effervescent 25 MEQ TABLET.EFF PO ONE ×2 (13:09→21:00)
[2016-09-09] MEDS: Cyanocobalamin (B-12) 1,000 MCG TABLET PO SCH (13:57)
--- NOTE | 2016-09-09 14:39 | Event Note ---
Date of Encounter: 09/09/16 Time of Encounter: 13:00 Pt is upset with discharge. Said she has social issue and need to talk to social work. When I ask what it is, she said "you don't know it, even my don't understand it". She require to talk to SW face on face. SW consult placed. Hold D/C now, continue current treatment.
[2016-09-09] MEDS: *HR* Rivaroxaban 15 MG TABLET PO SCH (16:46)
[2016-09-10 06:02] LABS: BUN/Creatinine Ratio 21 (6-26); Blood Urea Nitrogen 17 mg/dL (7-20); Calcium 9.7 mg/dL (8.6-10.8); Carbon Dioxide 20 mEq/L (19-29); Chloride 111 mEq/L (98-109); Glucose 110 mg/dL (70-99); Osmolality,Calculated 288 (280-300); Potassium 3.8 mEq/L (3.5-4.5); Sodium 138 mEq/L (136-145); eGFR For African Americans > 60 (> 60); eGFR For Non-African Americans > 60 (> 60)
[2016-09-10] MEDS: Budesonide/Formoterol 160/4.5 MDI IH SCH ×2 (07:37→20:50)
[2016-09-10] MEDS: Lactobacillus 1 EACH CAP.SPRINK PO SCH (08:36)
[2016-09-10] MEDS: Cyanocobalamin (B-12) 1,000 MCG TABLET PO SCH (08:36)
[2016-09-10] MEDS: Metoprolol XL (24 HR) Succ 50 MG TAB.ER.24H PO SCH ×2 (08:37→21:52)
[2016-09-10] MEDS: Acyclovir 200 MG CAPSULE PO SCH ×2 (08:37→21:52)
[2016-09-10] MEDS: Isosorbide MONOnitrate (24 HR) 60 MG TAB.ER.24H PO SCH (08:37)
[2016-09-10] MEDS: amLODIPine 5 MG TABLET PO SCH (08:38)
[2016-09-10] MEDS: Potassium Chloride Elixir 20 MEQ/15 ML UDC PO SCH (08:38)
[2016-09-10] MEDS: Insulin LISPRO 300 UNITS/3 ML VIAL SQ SCH ×4 (10:50→21:55)
--- NOTE | 2016-09-10 15:25 | Internal Med Progress Note ---
Date of Encounter: 09/10/16 Time of Encounter: 09:00 - Assessment and plan (1) Encephalopathy acute Current Visit: Yes Status: Acute Assessment and plan: Probably due to UTI or/and dehydration. We will continue treat underlying disease, closely monitor patient. - Resolved after treatment (2) UTI (urinary tract infection) Current Visit: Yes Status: Acute Assessment and plan: Urinalysis shows UTI. However urine culture shows negative. Consider non- complicated UTI - Finished Rocephin 3 day course Qualifiers: Urinary tract infection type: acute cystitis Hematuria presence: without hematuria Qualified Code(s): N30.00 - Acute cystitis without hematuria (3) Dehydration Current Visit: Yes Status: Acute Assessment and plan: Lab shows elevated BUN with high BUN/creatinine ratio. Consider dehydration. Improved after IV fluid. IVF has been D/Redd. (4) Essential (primary) hypertension Current Visit: Yes Status: Acute Assessment and plan: BP is stable. Continue home medications. (5) Pulmonary embolism Current Visit: Yes Status: Acute Assessment and plan: History of PE. On xarelto now. Qualifiers: Chronicity: chronic Acute cor pulmonale presence: without acute cor pulmonale Qualified Code(s): I26.90 - Septic pulmonary embolism without acute cor pulmonale (6) CMML (chronic myelomonocytic leukemia) Current Visit: Yes Status: Acute Assessment and plan: Oncology is on case. Recommendation will be followed. Qualifiers: Leukemia Active/Remission status: without remission Qualified Code(s): C93.10 - Chronic myelomonocytic leukemia not having achieved remission (7) Multiple myeloma Current Visit: No Status: Chronic Assessment and plan: Will follow up with oncology recommendation Qualifiers: Multiple myeloma remission status: in remission Qualified Code(s): C90.01 - Multiple myeloma in remission (8) COPD (chronic obstructive pulmonary disease) Current Visit: No Status: Chronic Assessment and plan: Stable. 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 On Vit B12 supplement. Will check intrinsic factor Ab (result may need to be follow as outpatient), if positive may need parenteral supplement. - Time Spent With Patient 25 - 35 minutes - Subjective Interval history: Patient is a 76-year-old female admitted for altered mental status. Her past medical history is significant for CML, multiple myeloma, diabetes, CHF, COPD, history of pulmonary embolism, hypertension. Patient was seen and examined. Pt is stable. Vitals stable, waiting for social work consult. - Constitutional Vitals: Temp Pulse Resp BP Pulse Ox 98.6 F 68 18 121/65 99 09/10/16 15:10 09/10/16 15:10 09/10/16 15:10 09/10/16 15:10 09/10/16 15:10 General appearance: Present: A&O X 3, no acute distress, answers questions appropriately - Head Head exam: Present: atraumatic, normocephalic - Eye Eye exam: Present: PERRL, conjuntiva pink, sclera anicteric Pupils: Present: PERRL - Neck Neck exam general surgery: Present: supple, trachea midline. Absent: lymphadenopathy - Respiratory Respiratory exam: Present: CTAB. Absent: accessory muscle use, rales, rhonchi, wheezes - Cardiovascular Cardiovascular exam: Present: RRR, +S1, +S2. Absent: diastolic murmur, gallop, rubs, systolic murmur - GI/Abdominal GI/Abdominal exam: Present: normal bowel sounds, soft, no peritoneal signs. Absent: distended, tenderness - Extremities Exam Extremities exam: Present: warm, radial pulses palpable and symetrical. Absent : calf tenderness, cyanotic, pedal edema - Neurological Exam Neurological exam: Present: CN II-XII intact, oriented X3, no focal deficits. Absent: pronater drift, facial droop, speech deficit - Skin Skin exam: Present: dry, intact Internal Medicine: Result - Labs CBC & Chem 7: 09/09/16 04:44 09/10/16 04:51 Labs: BMP 09/10/16 04:51 Sodium 138 Potassium 3.8 Chloride 111 H Carbon Dioxide 20 BUN 17 Creatinine 0.81 Glucose 110 H Calcium 9.7 - VTE Documentation of Mechanical Device: Intermittent pneumatic compression device Consult Discharge Plan - Plan Referrals: Jeffery Lane MD [Primary Care Provider] - 09/15/16 3:00 pm () Prescriptions: Cyanocobalamin (B-12) [Vitamin B12] 1,000 mcg PO DAILY #30 tablet
[2016-09-10] MEDS: Furosemide 40 MG TABLET PO SCH (15:40)
[2016-09-10] MEDS: *HR* Rivaroxaban 15 MG TABLET PO SCH (15:40)
[2016-09-10] MEDS: *HR* LORazepam 0.5 MG TABLET PO PRN ×2 (15:57→21:53)
[2016-09-11] MEDS: Insulin LISPRO 300 UNITS/3 ML VIAL SQ SCH ×2 (07:53→11:14)
[2016-09-11] MEDS ORDERED: Furosemide 40 MG TABLET PO SCH (09:00)
[2016-09-11] MEDS: Acyclovir 200 MG CAPSULE PO SCH (10:17)
[2016-09-11] MEDS: *HR* LORazepam 0.5 MG TABLET PO PRN (10:17)
[2016-09-11] MEDS: Isosorbide MONOnitrate (24 HR) 60 MG TAB.ER.24H PO SCH (10:17)
[2016-09-11] MEDS: Metoprolol XL (24 HR) Succ 50 MG TAB.ER.24H PO SCH (10:17)
[2016-09-11] MEDS: Lactobacillus 1 EACH CAP.SPRINK PO SCH (10:17)
[2016-09-11] MEDS: amLODIPine 5 MG TABLET PO SCH (10:18)
[2016-09-11] MEDS: Potassium Chloride Elixir 20 MEQ/15 ML UDC PO SCH (10:18)
[2016-09-11] MEDS: Cyanocobalamin (B-12) 1,000 MCG TABLET PO SCH (10:18)
[2016-09-11 10:39] VITALS: BP 166/61
[2016-09-11] MEDS: Budesonide/Formoterol 160/4.5 MDI IH SCH (11:24)
--- NOTE | 2016-09-11 16:19 | Event Note ---
Date of Encounter: 09/11/16 Time of Encounter: 10:00 Pt seen and examined, no further complaint. SW interviewed pt and her requirement has been addressed. Pt feels fine. Physical exam: Lungs are clear, HR 75, RRR, no leg swelling. Pt will d/c home with HH today. Discharge summary updated, please refer to discharge summary for medication changes.
== END 2016-09-11 16:08 | disposition home health service (06) | DRG 689 ==
LOC: EMEROO 11:49 → 2ANU 11:49
PROVIDERS: ADMIT Registered Nurse; ATTEND Internal Medicine

== ENCOUNTER 2017-06-15 22:09 | Inpatient (IN) ==
[2017-06-15] MEDS ORDERED: *HR* FentaNYL (PF) 100 MCG/2 ML VIAL IVP ONE (22:42)
--- NOTE | 2017-06-15 22:48 | Emergency Department Note ---
Disposition Clinical Impression: CML (chronic myelocytic leukemia) Deep vein thrombosis (DVT) of brachial vein of right upper extremity Qualifiers: Chronicity: acute Qualified Code(s): I82.621 - Acute embolism and thrombosis of deep veins of right upper extremity Disposition: Admitted As Inpatient Condition: Fair Time of Disposition: 02:39 General Adult HPI - General Chief complaint: ED Extremity Problem,Nontraumatic Stated complaint: R Arm Pain Time Seen by Provider: 06/15/17 22:18 Source: patient Mode of arrival: ambulatory Limitations: no limitations Nursing Notes Reviewed: Yes Vital Signs Reviewed: Yes - History of Present Illness HPI Narrative: Patient is a 76-year-old female with a past medical history of cancer, CHF, COPD , DVT/PE presenting to the emergency department for the presentation of severe right arm pain that has been going on for the past 7 days. She states that the pain started gradual and has spread diffusely throughout the musculature in her arm and his gone to the point where she can no longer be comfortable and she is standing up and pacing at home. She does have a history of blood clots which she is currently on Xeralto. She also recently started a new medication called tasigna for CML. Pain Scale: 10 - Related Data Home Medications Medication Instructions Recorded Confirmed Amlodipine [Norvasc] 5 mg PO BID 11/12/14 06/16/17 Cranberry Fruit Extract/Vit C [Azo 1 each PO DAILY 11/12/14 06/16/17 Cranberry Softgel] Ergocalciferol (VITAMIN D2) 50,000 unit PO QWEEK 11/12/14 06/16/17 [Drisdol (50,000 Unit)] Exenatide Microspheres [Bydureon] 2 mg SQ QWEEK 11/12/14 06/16/17 Insulin LISPRO [Humalog Kwikpen 2 - 15 unit SQ ACHS 11/12/14 06/16/17 U-200] Levothyroxine [Synthroid] 125 mcg PO DAILY 11/12/14 06/16/17 Nitroglycerin 0.4 mg SL Q5MIN PRN 11/12/14 06/16/17 Rosuvastatin [Crestor] 40 mg PO HS 11/12/14 06/16/17 Saccharomyces Boulardii [Probiotic] 250 mg PO DAILY 11/12/14 06/16/17 Losartan Potassium [Cozaar] 100 mg PO DAILY 05/22/16 06/16/17 Metformin HCl [Metformin HCl ER] 500 mg PO DAILY 05/22/16 06/16/17 Metoprolol XL (24 HR) Succ [Toprol 100 mg PO BID 05/22/16 06/16/17 Xl] Montelukast [Singulair] 10 mg PO DAILY 05/22/16 06/16/17 Selenium 200 mcg PO DAILY 05/22/16 06/16/17 Potassium Chloride [Klor-Con] 25 meq PO BID 07/10/16 06/16/17 Acyclovir [Zovirax] 400 mg PO BID 09/06/16 06/16/17 Furosemide [Lasix] 20 mg PO DAILY PRN 09/06/16 06/16/17 Oxygen 2 l .ROUTE AD 09/06/16 06/16/17 Albuterol Sulfate [Albuterol 1 puff IH Q4HR PRN 06/16/17 06/16/17 Inhaler] Calcitriol [Rocaltrol] 0.25 mcg PO DAILY 06/16/17 06/16/17 Isosorbide MONOnitrate [Isosorbide 120 mg PO DAILY 06/16/17 06/16/17 Mononitrate ER] Propylene Glycol/Peg 400 [Systane 10 ml OP BID 06/16/17 06/16/17 Gel Eye Drops] Previous Rx's Medication Instructions Recorded Folic Acid 1 mg PO DAILY #90 tablet 03/27/17 Rivaroxaban [Xarelto] 15 mg PO DAILY #90 tablet 04/03/17 Nilotinib HCl [Tasigna] 1 tab PO BID #180 capsule 05/14/17 Docusate [Colace] 100 mg PO BID #60 capsule 06/06/17 Mirtazapine [Remeron] 15 mg PO HS #30 tablet 06/06/17 Allergies Allergy/AdvReac Type Severity Reaction Status Date / Time No Known Allergies Allergy Verified 06/06/17 15:35 All systems ED: reviewed and negative except as stated. Review of Systems: As Per HPI Constitutional: Denies: fever, chills Cardiovascular: Denies: chest pain, palpitations, dyspnea on exertion Respiratory: Denies: cough, dyspnea, wheezes Gastrointestinal: Denies: abdominal pain, nausea, vomiting Musculoskeletal: Reports: myalgia. Denies: back pain, neck pain Integumentary: Denies: rash, abrasion Neurological: Denies: headache, weakness Past Medical History - Past Medical History Attestation: Yes The following information was validated with the patient. Medical history: Reports: asthma, cancer, CHF, COPD, DVT, diabetes, hyperlipidemia, hypertension, pulmonary embolus, other Surgical history: Reports: cholecystectomy, other (D&C, lumpectomy in 2009, 2016 cystoscopy) Psychiatric history: Reports: anxiety, depression [employer] history: Reports: no [employer] history - Social History Smoking Status: Former smoker Smokeless Tobacco Status: No Alcohol use: Reports: none Drug use: Reports: none Physical Exam CONSTITUTIONAL: Alert and oriented X3. Patient is moaning in pain holding her right arm. HEAD: Normocephalic; atraumatic. EYES: PERRL, no scleral icterus. NOSE: The nose is normal in appearance without rhinorrhea RESP: Normal chest excursion with respiration; breath sounds clear and equal bilaterally; no wheezes, rhonchi, or rales CARD: Regular rhythm, without murmurs, rub or gallop ABD: Non-distended; non-tender, soft,without rigidity, rebound or guarding SKIN: Normal for age and race; warm and dry; no apparent lesions EXT: Patient's right upper extremity has 2+ ulnar and radial pulses. Brisk capillary refill less than 2 seconds. The arm is warm to touch and has good color. The patient has a 5/5 strength in the arm. She mainly has tenderness over palpation of her bicep muscle and her forearm muscle. - General Limitations: no limitations General appearance: alert, in no apparent distress Course Course Narrative: Plan at this time is to perform a Doppler of the patient's right upper extremity. - Reevaluation(s) Reevaluation #1: I called the patient's glove examiner manager loss prevention, Dr. Barnes, he states that this right arm pain is most likely unrelated to the patient's recent medication addition which was Tasigna. He recommends withholding the medication if the patient's workup comes back negative for any other ideology. Otherwise no further limitations at this time. Time: 23:15 Reevaluation #2: The patient's right upper extremity Doppler was positive for a brachial vein DVT. Patient's case was discussed with the on-call hospitalist Dr. Evans. He requested the patient be started on a heparin drip. Discussed plans with the patient to have her admitted to the hospital so she can undergo heparinization and continued pain control. Patient agrees with this plan. Time: 02:24 Vital Signs Temperature 97.6 F 06/15/17 22:10 Pulse Rate 89 06/15/17 22:10 Respiratory Rate 20 06/15/17 22:10 Blood Pressure 195/78 06/15/17 22:10 O2 Sat by Pulse Oximetry 92 06/15/17 22:10 Temperature 97.6 F 06/15/17 22:10 Pulse Rate 93 06/16/17 03:00 Respiratory Rate 20 06/15/17 22:10 Blood Pressure 175/82 06/16/17 03:00 O2 Sat by Pulse Oximetry 97 06/16/17 03:00 Oxygen Delivery Oxygen Delivery Nasal Cannula Medical Decision Making - Medical Records Medical records reviewed: Yes I reviewed the patient's medical records. - Lab Data Lab results reviewed: Yes I reviewed the patient's lab results. Result diagrams: 06/16/17 02:19 06/15/17 22:48 Lab Results 06/15/17 06/15/17 06/15/17 Range/Units 22:48 22:48 22:48 WBC 17.4 H (4.3-11.1) K/mcL RBC 5.17 H (3.82-4.97) M/mcL Hgb 14.7 (11.5-15.4) g/dL Hct 44.0 (35.3-44.9) % MCV 85.1 (83.0-100.0) fL MCH 28.4 (28.0-33.3) pg MCHC 33.4 (31.6-35.5) g/dL RDW 15.3 H (11.5-14.5) % Plt Count 273 (140-400) K/mcL MPV 10.8 (9.4-12.4) fL Immature Gran % 0.7 (0-4) % Seg Neutrophils % 81.4 % Lymphocytes % 8.8 % Monocytes % 7.3 % Eosinophils % 1.4 % Basophils % 0.4 % Neutrophils # 14.2 H (1.6-8.9) K/mcL Lymphocytes # 1.5 (0.6-4.6) K/mcL Monocytes # 1.3 (0.0-1.3) K/mcL Eosinophils # 0.3 (0.0-0.6) K/mcL Basophils # 0.1 (0.0-0.2) K/mcL PT 20.8 H (9.4-12.1) Seconds INR 1.9 APTT 39.5 H (26.0-36.0) Seconds Sodium 136 (136-145) mEq/L Potassium 3.9 (3.5-5.1) mEq/L Chloride 101 (98-107) mEq/L Carbon Dioxide 23 (23-29) mEq/L BUN 24 H (8-23) mg/dL Creatinine 0.88 (0.60-1.20) mg/dL Est GFR ( Amer) > 60 (> 60) Est GFR (Non-Af Amer) > 60 (> 60) BUN/Creatinine Ratio 27 H (6-26) Glucose 242 H (70-105) mg/dL Calculated Osmolality 294 (280-300) Calcium 11.4 H (8.6-10.3) mg/dL Creatine Kinase (30-223) Units/L Troponin I < 0.03 (< 0.04) ng/mL 06/15/17 06/16/17 06/16/17 Range/Units 22:48 02:19 02:19 WBC 14.5 H (4.3-11.1) K/mcL RBC 4.79 (3.82-4.97) M/mcL Hgb 13.4 (11.5-15.4) g/dL Hct 40.4 (35.3-44.9) % MCV 84.3 (83.0-100.0) fL MCH 28.0 (28.0-33.3) pg MCHC 33.2 (31.6-35.5) g/dL RDW 15.4 H (11.5-14.5) % Plt Count 241 (140-400) K/mcL MPV 10.7 (9.4-12.4) fL Immature Gran % (0-4) % Seg Neutrophils % % Lymphocytes % % Monocytes % % Eosinophils % % Basophils % % Neutrophils # (1.6-8.9) K/mcL Lymphocytes # (0.6-4.6) K/mcL Monocytes # (0.0-1.3) K/mcL Eosinophils # (0.0-0.6) K/mcL Basophils # (0.0-0.2) K/mcL PT 15.3 H (9.4-12.1) Seconds INR 1.4 APTT 37.6 H (26.0-36.0) Seconds Sodium (136-145) mEq/L Potassium (3.5-5.1) mEq/L Chloride (98-107) mEq/L Carbon Dioxide (23-29) mEq/L BUN (8-23) mg/dL Creatinine (0.60-1.20) mg/dL Est GFR ( Amer) (> 60) Est GFR (Non-Af Amer) (> 60) BUN/Creatinine Ratio (6-26) Glucose (70-105) mg/dL Calculated Osmolality (280-300) Calcium (8.6-10.3) mg/dL Creatine Kinase 58 (30-223) Units/L Troponin I (< 0.04) ng/mL - Radiology Data Radiology results reviewed: Yes I reviewed the patient's radiology results. Chest X-Ray 06/15/17 22:37 IMPRESSION: No acute disease. D/ / Dakotah Sherman MD / Dakotah Sherman MD Interpreting Provider: Dakotah Sherman MD Forearm X-Ray 06/15/17 22:38 IMPRESSION: 1. No fracture or malalignment. 2. Possible myeloma lesion in the proximal radius. D/ / Dakotah Sherman MD / Dakotah Sherman MD Interpreting Provider: Dakotah Sherman MD Humerus X-Ray 06/15/17 22:38 IMPRESSION: No fracture or radiographic evidence for myeloma in the right humerus. D/ / Dakotah Sherman MD / Dakotah Sherman MD Interpreting Provider: Dakotah Sherman MD - EKG Data EKG #1 EKG attestation: Yes I reviewed and interpreted this EKG. EKG results narrative: EKG done at 22:39 shows sinus rhythm at a rate of 85 bpm. No axis. IN is 200, QRS 98, QT is 371 and QTc is 414 and these are within normal limits. No signs of ST elevation, ST depression or Q waves present. This EKG is unchanged when compared to EKG done on 05/21/2017.
[2017-06-15 22:59] LABS: Basophils # 0.1 K/mcL (0.0-0.2); Basophils % 0.4 %; Eosinophils # 0.3 K/mcL (0.0-0.6); Eosinophils % 1.4 %; Hemoglobin 14.7 g/dL (11.5-15.4); Immature Granulocytes % 0.7 % (0-4); Lymphocytes # 1.5 K/mcL (0.6-4.6); Lymphocytes % 8.8 %; Mean Corpuscular HGB Conc 33.4 g/dL (31.6-35.5); Mean Corpuscular Hemoglobin 28.4 pg (28.0-33.3); Mean Corpuscular Volume 85.1 fL (83.0-100.0); Mean Platelet Volume 10.8 fL (9.4-12.4); Monocytes # 1.3 K/mcL (0.0-1.3); Monocytes % 7.3 %; Neutrophils # 14.2 K/mcL (1.6-8.9); Platelet Count 273 K/mcL (140-400); Red Blood Count 5.17 M/mcL (3.82-4.97); Red Cell Distribution Width 15.3 % (11.5-14.5); Segmented Neutrophils % 81.4 %
[2017-06-15 23:04] LABS: INR 1.9; Prothrombin Time 20.8 Seconds (9.4-12.1)
[2017-06-15 23:06] LABS: Activated Partial Thrombo Time 39.5 Seconds (26.0-36.0)
[2017-06-15 23:22] LABS: BUN/Creatinine Ratio 27 (6-26); Blood Urea Nitrogen 24 mg/dL (8-23); Calcium 11.4 mg/dL (8.6-10.3); Carbon Dioxide 23 mEq/L (23-29); Chloride 101 mEq/L (98-107); Glucose 242 mg/dL (70-105); Osmolality,Calculated 294 (280-300); Potassium 3.9 mEq/L (3.5-5.1); Sodium 136 mEq/L (136-145); eGFR For African Americans > 60 (> 60); eGFR For Non-African Americans > 60 (> 60)
[2017-06-15 23:23] LABS: Troponin I < 0.03 ng/mL (< 0.04)
[2017-06-16] MEDS ORDERED: *HR* Nalbuphine 10 MG/ML AMPUL IV STA (00:22)
[2017-06-16] MEDS ORDERED: *HR* Heparin 5,000 UNIT/ML VIAL IVP PRN (01:56)
[2017-06-16] MEDS ORDERED: *HR* Heparin 5,000 UNIT/ML VIAL IVP ONE (01:56)
[2017-06-16 02:30] LABS: Hematocrit 40.4 % (35.3-44.9); Hemoglobin 13.4 g/dL (11.5-15.4); Mean Corpuscular HGB Conc 33.2 g/dL (31.6-35.5); Mean Corpuscular Volume 84.3 fL (83.0-100.0); Mean Platelet Volume 10.7 fL (9.4-12.4); Platelet Count 241 K/mcL (140-400); Red Blood Count 4.79 M/mcL (3.82-4.97); Red Cell Distribution Width 15.4 % (11.5-14.5)
[2017-06-16 02:36] LABS: INR 1.4; Prothrombin Time 15.3 Seconds (9.4-12.1)
[2017-06-16 02:38] LABS: Activated Partial Thrombo Time 37.6 Seconds (26.0-36.0)
[2017-06-16] MEDS ORDERED: *HR* HYDROcodone/Acet 5/325 mg TABLET PO PRN (02:44)
[2017-06-16] MEDS ORDERED: Naloxone 0.4 MG/ML INJ IVP PRN (02:44)
[2017-06-16] MEDS ORDERED: D5% in Water 1,000 ML IVC PRN (02:53)
[2017-06-16] MEDS ORDERED: Dextrose Gel 15 GM/37.5 ML TUBE PO PRN ×2 (02:53)
[2017-06-16] MEDS ORDERED: *HR* Dextrose 50 % in Water (Syg) 50 ML SYRINGE IVP PRN (02:53)
[2017-06-16] MEDS ORDERED: Furosemide 20 MG TABLET PO PRN (02:55)
[2017-06-16] MEDS ORDERED: Nitroglycerin 0.4 MG TAB.SUBL SL PRN (02:55)
[2017-06-16] MEDS: Heparin 25,000 UNIT/500 ML D5W 25,000 UNIT/500 ML BAG IVC SCH ×2 (02:59→23:04)
--- NOTE | 2017-06-16 03:07 | Emergency Department Note ---
Disposition Clinical Impression: CML (chronic myelocytic leukemia) Deep vein thrombosis (DVT) of brachial vein of right upper extremity Qualifiers: Chronicity: acute Qualified Code(s): I82.621 - Acute embolism and thrombosis of deep veins of right upper extremity Disposition: Admitted As Inpatient Condition: Fair General Adult HPI - General Chief complaint: ED Extremity Problem,Nontraumatic Stated complaint: R Arm Pain Time Seen by Provider: 06/15/17 22:18 Source: patient Mode of arrival: ambulatory Limitations: no limitations - History of Present Illness Pain Scale: 10 - Related Data Home Medications Medication Instructions Recorded Confirmed Amlodipine [Norvasc] 5 mg PO BID 11/12/14 06/16/17 Cranberry Fruit Extract/Vit C [Azo 1 each PO DAILY 11/12/14 06/16/17 Cranberry Softgel] Ergocalciferol (VITAMIN D2) 50,000 unit PO QWEEK 11/12/14 06/16/17 [Drisdol (50,000 Unit)] Exenatide Microspheres [Bydureon] 2 mg SQ QWEEK 11/12/14 06/16/17 Insulin LISPRO [Humalog Kwikpen 2 - 15 unit SQ ACHS 11/12/14 06/16/17 U-200] Levothyroxine [Synthroid] 125 mcg PO DAILY 11/12/14 06/16/17 Nitroglycerin 0.4 mg SL Q5MIN PRN 11/12/14 06/16/17 Rosuvastatin [Crestor] 40 mg PO HS 11/12/14 06/16/17 Saccharomyces Boulardii [Probiotic] 250 mg PO DAILY 11/12/14 06/16/17 Losartan Potassium [Cozaar] 100 mg PO DAILY 05/22/16 06/16/17 Metformin HCl [Metformin HCl ER] 500 mg PO DAILY 05/22/16 06/16/17 Metoprolol XL (24 HR) Succ [Toprol 100 mg PO BID 05/22/16 06/16/17 Xl] Montelukast [Singulair] 10 mg PO DAILY 05/22/16 06/16/17 Selenium 200 mcg PO DAILY 05/22/16 06/16/17 Potassium Chloride [Klor-Con] 25 meq PO BID 07/10/16 06/16/17 Acyclovir [Zovirax] 400 mg PO BID 09/06/16 06/16/17 Furosemide [Lasix] 20 mg PO DAILY PRN 09/06/16 06/16/17 Oxygen 2 l .ROUTE AD 09/06/16 06/16/17 Albuterol Sulfate [Albuterol 1 puff IH Q4HR PRN 06/16/17 06/16/17 Inhaler] Calcitriol [Rocaltrol] 0.25 mcg PO DAILY 06/16/17 06/16/17 Isosorbide MONOnitrate [Isosorbide 120 mg PO DAILY 06/16/17 06/16/17 Mononitrate ER] Propylene Glycol/Peg 400 [Systane 10 ml OP BID 06/16/17 06/16/17 Gel Eye Drops] Previous Rx's Medication Instructions Recorded Folic Acid 1 mg PO DAILY #90 tablet 03/27/17 Rivaroxaban [Xarelto] 15 mg PO DAILY #90 tablet 04/03/17 Nilotinib HCl [Tasigna] 1 tab PO BID #180 capsule 05/14/17 Docusate [Colace] 100 mg PO BID #60 capsule 06/06/17 Mirtazapine [Remeron] 15 mg PO HS #30 tablet 06/06/17 Allergies Allergy/AdvReac Type Severity Reaction Status Date / Time No Known Allergies Allergy Verified 06/06/17 15:35 Constitutional: Denies: fever, chills Cardiovascular: Denies: chest pain, palpitations, dyspnea on exertion Respiratory: Denies: cough, dyspnea, wheezes Gastrointestinal: Denies: abdominal pain, nausea, vomiting Musculoskeletal: Reports: myalgia. 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 - Social History Smoking Status: Former smoker Smokeless Tobacco Status: No Alcohol use: Reports: none Drug use: Reports: none Physical Exam - General Limitations: no limitations General appearance: alert, in no apparent distress Course Vital Signs Temperature 97.6 F 06/15/17 22:10 Pulse Rate 89 06/15/17 22:10 Respiratory Rate 20 06/15/17 22:10 Blood Pressure 195/78 06/15/17 22:10 O2 Sat by Pulse Oximetry 92 06/15/17 22:10 Temperature 97.6 F 06/15/17 22:10 Pulse Rate 86 06/15/17 23:35 Respiratory Rate 20 06/15/17 22:10 Blood Pressure 192/84 06/15/17 23:35 O2 Sat by Pulse Oximetry 97 06/15/17 23:35 Oxygen Delivery Oxygen Delivery Nasal Cannula Medical Decision Making - Lab Data Result diagrams: 06/16/17 02:19 06/15/17 22:48 Lab Results 06/15/17 06/15/17 06/15/17 Range/Units 22:48 22:48 22:48 WBC 17.4 H (4.3-11.1) K/mcL RBC 5.17 H (3.82-4.97) M/mcL Hgb 14.7 (11.5-15.4) g/dL Hct 44.0 (35.3-44.9) % MCV 85.1 (83.0-100.0) fL MCH 28.4 (28.0-33.3) pg MCHC 33.4 (31.6-35.5) g/dL RDW 15.3 H (11.5-14.5) % Plt Count 273 (140-400) K/mcL MPV 10.8 (9.4-12.4) fL Immature Gran % 0.7 (0-4) % Seg Neutrophils % 81.4 % Lymphocytes % 8.8 % Monocytes % 7.3 % Eosinophils % 1.4 % Basophils % 0.4 % Neutrophils # 14.2 H (1.6-8.9) K/mcL Lymphocytes # 1.5 (0.6-4.6) K/mcL Monocytes # 1.3 (0.0-1.3) K/mcL Eosinophils # 0.3 (0.0-0.6) K/mcL Basophils # 0.1 (0.0-0.2) K/mcL PT 20.8 H (9.4-12.1) Seconds INR 1.9 APTT 39.5 H (26.0-36.0) Seconds Sodium 136 (136-145) mEq/L Potassium 3.9 (3.5-5.1) mEq/L Chloride 101 (98-107) mEq/L Carbon Dioxide 23 (23-29) mEq/L BUN 24 H (8-23) mg/dL Creatinine 0.88 (0.60-1.20) mg/dL Est GFR ( Amer) > 60 (> 60) Est GFR (Non-Af Amer) > 60 (> 60) BUN/Creatinine Ratio 27 H (6-26) Glucose 242 H (70-105) mg/dL Calculated Osmolality 294 (280-300) Calcium 11.4 H (8.6-10.3) mg/dL Creatine Kinase (30-223) Units/L Troponin I < 0.03 (< 0.04) ng/mL 06/15/17 06/16/17 06/16/17 Range/Units 22:48 02:19 02:19 WBC 14.5 H (4.3-11.1) K/mcL RBC 4.79 (3.82-4.97) M/mcL Hgb 13.4 (11.5-15.4) g/dL Hct 40.4 (35.3-44.9) % MCV 84.3 (83.0-100.0) fL MCH 28.0 (28.0-33.3) pg MCHC 33.2 (31.6-35.5) g/dL RDW 15.4 H (11.5-14.5) % Plt Count 241 (140-400) K/mcL MPV 10.7 (9.4-12.4) fL Immature Gran % (0-4) % Seg Neutrophils % % Lymphocytes % % Monocytes % % Eosinophils % % Basophils % % Neutrophils # (1.6-8.9) K/mcL Lymphocytes # (0.6-4.6) K/mcL Monocytes # (0.0-1.3) K/mcL Eosinophils # (0.0-0.6) K/mcL Basophils # (0.0-0.2) K/mcL PT 15.3 H (9.4-12.1) Seconds INR 1.4 APTT 37.6 H (26.0-36.0) Seconds Sodium (136-145) mEq/L Potassium (3.5-5.1) mEq/L Chloride (98-107) mEq/L Carbon Dioxide (23-29) mEq/L BUN (8-23) mg/dL Creatinine (0.60-1.20) mg/dL Est GFR ( Amer) (> 60) Est GFR (Non-Af Amer) (> 60) BUN/Creatinine Ratio (6-26) Glucose (70-105) mg/dL Calculated Osmolality (280-300) Calcium (8.6-10.3) mg/dL Creatine Kinase 58 (30-223) Units/L Troponin I (< 0.04) ng/mL Critical Care Time Critical Care Time: Yes Total Critical Care Time: 40 Attestation: Critical care performed: Time is exclusive of separately billable procedures. Time includes: direct patient care, patient reassessment, coordination of patient care, interpretation of data (laboratory data, radiology data, and respiratory data), review of patient's medical records, medical consultation and documentation of patient care. Procedures included in critical care time: Procedures excluded from critical care time: Attestation Statement - Attestation Attestation: I, Sumit Kidd MD, personally evaluated this patient and discussed their management with the resident physician. I reviewed the resident's note and agree with the documented findings, medical decision making, and plan of care. 76-year-old female presents to the emergency department complaining of right arm pain for more than a week which has gotten progressively worse. No fall or injury. Patient has a history of cancer and is on chemotherapy. She is on Xarelto for blood clots. On examination patient is a well-developed well-nourished elderly female in no acute distress. She is alert and oriented 3. There is no cyanosis or diaphoresis. Breath sounds are clear and equal bilaterally. Heart regular rate and rhythm. Abdomen soft and nontender with normal bowel sounds. There is mild tenderness of the right upper arm. No swelling noted. Some old ecchymosis. Neurovascular function intact distally with strong radial pulse and good graphic editor strengths. Labs reviewed. Chest x-ray negative. Right humerus x-ray negative. Right forearm x-ray shows a possible myeloma lesion in the proximal radius but no fracture. A venous Doppler ultrasound of the right upper extremity was positive for DVT of the brachial vein per verbal report. Patient was started on heparin infusion. Dr. Weinberg discussed the case with the patient's oncologist, Dr. Barnes. The hospitalist, Dr. Evans, was consulted and accepted admission of the patient.
--- NOTE | 2017-06-16 04:00 | Internal Med History&Physical ---
Date of Encounter: 06/16/17 Time of Encounter: 02:00 Assessment and Plan (1) CML (chronic myelocytic leukemia) Current visit: Yes Status: Acute Continue home medication. Will consult oncology for recurrent thrombosis so oncology will be on board (2) Deep vein thrombosis (DVT) of brachial vein of right upper extremity Current visit: Yes Status: Acute Patient is on xarelto for previous PE. New-onset DVT now. - Hold xarelto, start patient on heparin drip. - Consul oncology for further management - Pain control for acute right arm pain - CT right shoulder to rule out possible other etiology of shoulder pain Qualifiers: Chronicity: acute Qualified Code(s): I82.621 - Acute embolism and thrombosis of deep veins of right upper extremity (3) DVT prophylaxis Current visit: No Status: Acute Patient is on heparin drip (4) COPD (chronic obstructive pulmonary disease) Current visit: No Status: Chronic Stable. No wheezing. 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 Pain control for right arm pain which will also help with high blood pressure Qualifiers: Hypertension type: essential hypertension Qualified Code(s): I10 - Essential (primary) hypertension (7) Multiple myeloma Current visit: No Status: Chronic Will consult oncology for recurrent thrombosis so oncology will be on board Qualifiers: Multiple myeloma remission status: in remission Qualified Code(s): C90.01 - Multiple myeloma in remission Internal Medicine - H&P: HPI Chief complaint: Right arm pain Admitted From: Home Plans for Post Hospital Care: Home History of present illness: Ms. Sanchez is a 76 year old female with history of diabetes, hypertension, COPD on home oxygen, multiple myeloma, CML, sleep apnea on CPAP during night, presented to ER for right arm pain since last Sunday. The pain is from shoulder to wrist, constant. The pain is getting worse gradually. Patient denies other symptoms include arm swelling, skin redness, or any numbness. Movement of the arm makes the pain getting worse. Patient has no fever, no nausea. In the emergency room, x-ray of right arm negative for fracture. However, US doppler shows right bronchial vein thrombosis. Patient has a history of PE and is on xarelto. Patient was admitted for further management. Past Med Surg Social Fam HX - Past Medical History Medical history: asthma, cancer, CHF, COPD, DVT, diabetes, hyperlipidemia, hypertension, pulmonary embolus, other Psychiatric history: anxiety, depression - Past Surgical History Surgical History: cholecystectomy, other (D&C, lumpectomy in 2008, 2016 cystoscopy) - Social History Smoking Status: Former smoker Smokeless Tobacco Status: No Alcohol use: none Drug use: none - Family History Father Hx Family Endocrine Disorder: Yes (father had diabetes) Internal Medicine - H&P: Meds Amlodipine [Norvasc] 5 mg PO BID 11/12/14 [History] Cranberry Fruit Extract/Vit C [Azo Cranberry Softgel] 1 each PO DAILY 11/12/14 [ History] Ergocalciferol (VITAMIN D2) [Drisdol (50,000 Unit)] 50,000 unit PO QWEEK [History] Exenatide Microspheres [Bydureon] 2 mg SQ QWEEK 11/12/14 [History] Insulin LISPRO [Humalog Kwikpen U-200] 2 - 15 unit SQ ACHS 11/12/14 [History] Levothyroxine [Synthroid] 125 mcg PO DAILY 11/12/14 [History] Nitroglycerin 0.4 mg SL Q5MIN PRN 11/12/14 [History] Rosuvastatin [Crestor] 40 mg PO HS 11/12/14 [History] Saccharomyces Boulardii [Probiotic] 250 mg PO DAILY 11/12/14 [History] Losartan Potassium [Cozaar] 100 mg PO DAILY 05/22/16 [History] Metformin HCl [Metformin HCl ER] 500 mg PO DAILY 05/22/16 [History] Metoprolol XL (24 HR) Succ [Toprol Xl] 100 mg PO BID 05/22/16 [History] Montelukast [Singulair] 10 mg PO DAILY 05/22/16 [History] Selenium 200 mcg PO DAILY 05/22/16 [History] Potassium Chloride [Klor-Con] 25 meq PO BID 07/10/16 [History] Acyclovir [Zovirax] 400 mg PO BID 09/06/16 [History] Furosemide [Lasix] 20 mg PO DAILY PRN 09/06/16 [History] Oxygen 2 l .ROUTE AD 09/06/16 [History] Folic Acid 1 mg PO DAILY #90 tablet 03/27/17 [Rx] Rivaroxaban [Xarelto] 15 mg PO DAILY #90 tablet 04/03/17 [Rx] Nilotinib HCl [Tasigna] 1 tab PO BID #180 capsule 05/14/17 [Rx] Docusate [Colace] 100 mg PO BID #60 capsule 06/06/17 [Rx] Mirtazapine [Remeron] 15 mg PO HS #30 tablet 06/06/17 [Rx] Albuterol Sulfate [Albuterol Inhaler] 1 puff IH Q4HR PRN 06/16/17 [History] Calcitriol [Rocaltrol] 0.25 mcg PO DAILY 06/16/17 [History] Isosorbide MONOnitrate [Isosorbide Mononitrate ER] 120 mg PO DAILY 06/16/17 [ History] Propylene Glycol/Peg 400 [Systane Gel Eye Drops] 10 ml OP BID 06/16/17 [History] 3 Allergy/AdvReac Type Severity Reaction Status Date / Time No Known Allergies Allergy Verified 06/06/17 15:35 All Systems PM: A 10-system review of systems was performed and is negative for pertinent findings except as documented above in the HPI. - Constitutional Vitals: Temp Pulse Resp BP Pulse Ox 97.6 F 93 20 175/82 97 06/15/17 22:10 06/16/17 03:00 06/15/17 22:10 06/16/17 03:00 06/16/17 03:00 General appearance: Present: mild distress, A&O X 3, answers questions appropriately - Head Head exam: Present: atraumatic, normocephalic - Eye Eye exam: Present: PERRL, conjuntiva pink, sclera anicteric Pupils: Present: PERRL - Neck Neck exam general surgery: Present: supple, trachea midline. Absent: lymphadenopathy - Respiratory Respiratory exam: Present: CTAB. Absent: accessory muscle use, rales, rhonchi, wheezes - Cardiovascular Cardiovascular exam: Present: RRR, +S1, +S2. Absent: diastolic murmur, gallop, rubs, systolic murmur - GI/Abdominal GI/Abdominal exam: Present: normal bowel sounds, soft, no peritoneal signs. Absent: distended, tenderness - Extremities Exam Extremities exam: Present: warm, radial pulses palpable and symmetrical. Absent : calf tenderness, cyanotic, pedal edema Additional comments: Right shoulder tenderness, ROM limited due to pain. ROM of right elbow is generally wnl. - Neurological Exam Neurological exam: Present: CN II-XII intact, oriented X3, no focal deficits. Absent: pronater drift, facial droop, speech deficit - Skin Skin exam: Present: dry, intact Internal Med - H&P Results - Labs CBC & Chem 7: 06/16/17 02:19 06/15/17 22:48
[2017-06-16] MEDS: *HR* OxyCODONE Immed Rel 5 MG TABLET PO PRN (04:03)
[2017-06-16 05:06] LABS: Basophils # 0.1 K/mcL (0.0-0.2); Basophils % 0.5 %; Eosinophils # 0.2 K/mcL (0.0-0.6); Eosinophils % 1.2 %; Hematocrit 42.4 % (35.3-44.9); Hemoglobin 13.9 g/dL (11.5-15.4); Immature Granulocytes % 0.5 % (0-4); Lymphocytes # 1.9 K/mcL (0.6-4.6); Lymphocytes % 13.7 %; Mean Corpuscular HGB Conc 32.8 g/dL (31.6-35.5); Mean Corpuscular Hemoglobin 27.7 pg (28.0-33.3); Mean Corpuscular Volume 84.6 fL (83.0-100.0); Mean Platelet Volume 11.5 fL (9.4-12.4); Monocytes # 1.1 K/mcL (0.0-1.3); Monocytes % 7.6 %; Neutrophils # 10.6 K/mcL (1.6-8.9); Platelet Count 258 K/mcL (140-400); Red Blood Count 5.01 M/mcL (3.82-4.97); Red Cell Distribution Width 15.4 % (11.5-14.5); Segmented Neutrophils % 76.5 %
[2017-06-16 05:17] LABS: BUN/Creatinine Ratio 27 (6-26); Blood Urea Nitrogen 21 mg/dL (8-23); Carbon Dioxide 25 mEq/L (23-29); Chloride 103 mEq/L (98-107); Glucose 207 mg/dL (70-105); Osmolality,Calculated 295 (280-300); Potassium 3.6 mEq/L (3.5-5.1); Sodium 138 mEq/L (136-145); eGFR For African Americans > 60 (> 60); eGFR For Non-African Americans > 60 (> 60)
[2017-06-16] MEDS: Artificial Tears SOLN 15 ML BOTTLE OP SCH ×2 (09:12→21:24)
[2017-06-16] MEDS: NILOTINIB HCL PO SCH ×2 (09:12→19:59)
[2017-06-16] MEDS: Insulin LISPRO 300 UNITS/3 ML VIAL SQ SCH ×4 (09:13→21:24)
[2017-06-16] MEDS: Isosorbide MONOnitrate (24 HR) 60 MG TAB.ER.24H PO SCH (09:13)
[2017-06-16] MEDS: Metoprolol XL (24 HR) Succ 50 MG TAB.ER.24H PO SCH ×2 (09:14→21:23)
[2017-06-16] MEDS: amLODIPine 5 MG TABLET PO SCH ×2 (09:14→21:23)
[2017-06-16] MEDS: Lactobacillus 1 EACH CAP.SPRINK PO SCH (09:14)
[2017-06-16] MEDS: Acyclovir 200 MG CAPSULE PO SCH ×2 (09:14→21:23)
[2017-06-16] MEDS: CRANBERRY FRUIT EXTRACT PO SCH (09:15)
[2017-06-16] MEDS: Potassium Effervescent 25 MEQ TABLET.EFF PO SCH ×2 (09:15→21:22)
[2017-06-16] MEDS: SELENIUM 200 MCG PO SCH (09:15)
[2017-06-16] MEDS: VIT C PO SCH (09:15)
[2017-06-16] MEDS: Folic Acid 1 MG TABLET PO SCH (09:15)
[2017-06-16] MEDS: *HR* Heparin 5,000 UNIT/ML VIAL IVP PRN ×2 (10:04→23:44)
--- NOTE | 2017-06-16 10:46 | Event Note ---
Date of Encounter: 06/16/17
--- NOTE | 2017-06-16 10:48 | Event Note ---
Date of Encounter: 06/16/17 Time of Encounter: 10:46 Patient was seen earlier this morning by hospitalist. Eduardo patient denies any chest pain or shortness of breath. She does have a past history of DVT and PE. She is on Xarelto 15mg states that she has been compliant and has not missed any doses. She does follow with Dr. Cameron Cloud oncology for CML. I did notify oncology and spoke with of consult. We will continue with heparin drip for now awaiting recommendations
--- NOTE | 2017-06-16 13:08 | Oncology Inp Consult Note ---
Date of Encounter: 06/16/17 Time of Encounter: 12:00 Assessment and Plan (1) Chronic myeloid leukemia not having achieved remission Status: Acute Assessment and plan: Patient is on nilotinib since April 2017 tolerating it well leukocytosis secondary to CML. (2) Pulmonary embolism Status: Acute Assessment and plan: Patient was on anticoagulation with Xarelto 15 mg daily with a history of pulmonary embolism. Qualifiers: Chronicity: chronic Acute cor pulmonale presence: without acute cor pulmonale Qualified Code(s): I26.90 - Septic pulmonary embolism without acute cor pulmonale (3) Thrombosis Status: Acute Assessment and plan: Brachial vein thrombosis, CT scan of the shoulders showed arthritis without any fracture. She has had lymphedema and neck to me with a prior breast cancer in the right side as well. Patient has improved. Continue anti-coag ablation with heparin restarting Xarelto and continuing full dose at 20 mg daily is an option for long-term antibiotic coagulation. Patient will discuss with her medical certification specialist further in the future. - Data of Consult Requesting Physician: Jennifer Lafleur MD Primary Care Provider: Jeffery Lane MD - Consult Narrative History of present illness: Ms. 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 Started nilotinib at around 05/06, tolerated well. She has a hx PE was anticoagulated with xarelto 15mg daily. She reported compliance with taking her meds. She is hospitalized currently due to rt upper extremity pain. A CT shoulder showed arthritis, doppler imaging -rt brachial vein thrombosis- acute. She is on IV heparin. Her pain is improved. She is unable to lift her right arm up. She denies any shortness of breath he denies any bleeding symptoms. Past Med Surg Social Fam HX - Past Medical History Medical history: asthma, cancer, CHF, COPD, DVT, diabetes, hyperlipidemia, hypertension, pulmonary embolus, other Psychiatric history: anxiety, depression - Past Surgical History Surgical History: cholecystectomy, other - Social History Smoking Status: Former smoker Smokeless Tobacco Status: No Alcohol use: none Drug use: none - Family History Father Hx Family Endocrine Disorder: Yes (father had diabetes) Medications and Allergies Amlodipine [Norvasc] 5 mg PO BID 11/12/14 [History] Cranberry Fruit Extract/Vit C [Azo Cranberry Softgel] 1 each PO DAILY 11/12/14 [ History] Ergocalciferol (VITAMIN D2) [Drisdol (50,000 Unit)] 50,000 unit PO QWEEK [History] Exenatide Microspheres [Bydureon] 2 mg SQ FR 11/12/14 [History] Insulin LISPRO [Humalog Kwikpen U-200] 2 - 15 unit SQ ACHS PRN 11/12/14 [History ] Levothyroxine [Synthroid] 125 mcg PO DAILY 11/12/14 [History] Nitroglycerin 0.4 mg SL Q5MIN PRN 11/12/14 [History] Rosuvastatin [Crestor] 40 mg PO HS 11/12/14 [History] Saccharomyces Boulardii [Probiotic] 250 mg PO DAILY 11/12/14 [History] Losartan Potassium [Cozaar] 100 mg PO DAILY 05/22/16 [History] Metformin HCl [Metformin HCl ER] 500 mg PO DAILY 05/22/16 [History] Metoprolol XL (24 HR) Succ [Toprol Xl] 100 mg PO BID 05/22/16 [History] Montelukast [Singulair] 10 mg PO DAILY 05/22/16 [History] Selenium 200 mcg PO DAILY 05/22/16 [History] Potassium Chloride [Klor-Con] 25 meq PO BID 07/10/16 [History] Acyclovir [Zovirax] 400 mg PO BID 09/06/16 [History] Furosemide [Lasix] 20 mg PO DAILY PRN 09/06/16 [History] Oxygen 2.5 l .ROUTE AD 09/06/16 [History] Folic Acid 1 mg PO DAILY #90 tablet 03/27/17 [Rx] Rivaroxaban [Xarelto] 15 mg PO DAILY #90 tablet 04/03/17 [Rx] Nilotinib HCl [Tasigna] 1 tab PO BID #180 capsule 05/14/17 [Rx] Docusate [Colace] 100 mg PO BID #60 capsule 06/06/17 [Rx] Mirtazapine [Remeron] 15 mg PO HS #30 tablet 06/06/17 [Rx] Albuterol Sulfate [Albuterol Inhaler] 1 puff IH Q4HR PRN 06/16/17 [History] Calcitriol [Rocaltrol] 0.25 mcg PO DAILY 06/16/17 [History] Isosorbide MONOnitrate [Isosorbide Mononitrate ER] 120 mg PO DAILY 06/16/17 [ History] Propylene Glycol/Peg 400 [Systane Gel Eye Drops] 10 ml OP BID 06/16/17 [History] 3 Allergy/AdvReac Type Severity Reaction Status Date / Time No Known Allergies Allergy Verified 06/16/17 16:08 Review of systems: as in HPI Oncology - Exam - Constitutional Vitals: Temp Pulse Resp BP Pulse Ox 98.2 F 80 16 156/66 96 06/16/17 11:38 06/16/17 11:38 06/16/17 11:38 06/16/17 11:38 06/16/17 11:38 General appearance: average body habitus - Head Head exam: Present: atraumatic, normal inspection - Eye Eye exam: Present: sclera anicteric - ENT ENT exam: Present: mucous membranes dry - Neck Neck exam: Present: full ROM - Respiratory Respiratory exam: Present: CTAB - Cardiovascular Cardiovascular exam: Present: +S1, +S2 - GI/Abdominal GI/Abdominal exam: Present: normal bowel sounds, soft - Extremities Exam Extremities exam: Present: normal inspection Additional comments: rt upper ext abduction difficulty. - Neurological Exam Neurological exam: Present: alert, CN II-XII intact, oriented X3 - Psychiatric Psychiatric exam: Present: normal affect Oncology - Results Labs: Short CBC 06/16/17 Range/Units 04:25 WBC 13.9 H (4.3-11.1) K/mcL Hgb 13.9 (11.5-15.4) g/dL Hct 42.4 (35.3-44.9) % Plt Count 258 (140-400) K/mcL Neutrophils # 10.6 H (1.6-8.9) K/mcL BMP 06/16/17 04:25 Sodium 138 Potassium 3.6 Chloride 103 Carbon Dioxide 25 BUN 21 Creatinine 0.78 Glucose 207 H Calcium 11.0 H Consult Discharge Plan - Plan Referrals: Jeffery Lane MD [Primary Care Provider] -
[2017-06-16] MEDS: Mirtazapine 15 MG TABLET PO SCH (21:23)
[2017-06-16] MEDS: Acetaminophen 325 MG TABLET PO PRN (23:08)
[2017-06-17 06:24] LABS: Basophils % 0.5 %; Eosinophils # 0.4 K/mcL (0.0-0.6); Eosinophils % 4.6 %; Hematocrit 38.6 % (35.3-44.9); Hemoglobin 12.8 g/dL (11.5-15.4); Immature Granulocytes % 0.5 % (0-4); Lymphocytes # 1.5 K/mcL (0.6-4.6); Lymphocytes % 18.9 %; Mean Corpuscular HGB Conc 33.2 g/dL (31.6-35.5); Mean Corpuscular Volume 84.5 fL (83.0-100.0); Mean Platelet Volume 11.4 fL (9.4-12.4); Monocytes # 1.1 K/mcL (0.0-1.3); Monocytes % 14.1 %; Platelet Count 213 K/mcL (140-400); Red Blood Count 4.57 M/mcL (3.82-4.97); Red Cell Distribution Width 15.5 % (11.5-14.5); Segmented Neutrophils % 61.4 %
[2017-06-17 06:47] LABS: Activated Partial Thrombo Time 126.3 Seconds (26.0-36.0)
[2017-06-17 06:48] LABS: BUN/Creatinine Ratio 26 (6-26); Blood Urea Nitrogen 21 mg/dL (8-23); Calcium 10.7 mg/dL (8.6-10.3); Carbon Dioxide 26 mEq/L (23-29); Chloride 105 mEq/L (98-107); Glucose 193 mg/dL (70-105); Osmolality,Calculated 296 (280-300); Potassium 3.4 mEq/L (3.5-5.1); Sodium 139 mEq/L (136-145); eGFR For African Americans > 60 (> 60); eGFR For Non-African Americans > 60 (> 60)
[2017-06-17] MEDS: NILOTINIB HCL PO SCH ×2 (07:52→19:55)
[2017-06-17 07:53] LABS: Heparin anti-factor XA UFH 0.98 IU/mL (0.30-0.70)
[2017-06-17] MEDS: amLODIPine 5 MG TABLET PO SCH ×2 (09:28→21:24)
[2017-06-17] MEDS: Potassium Effervescent 25 MEQ TABLET.EFF PO SCH ×2 (09:28→21:24)
[2017-06-17] MEDS: Metoprolol XL (24 HR) Succ 50 MG TAB.ER.24H PO SCH ×2 (09:28→21:23)
[2017-06-17] MEDS: Lactobacillus 1 EACH CAP.SPRINK PO SCH (09:28)
[2017-06-17] MEDS: Isosorbide MONOnitrate (24 HR) 60 MG TAB.ER.24H PO SCH (09:28)
[2017-06-17] MEDS: SELENIUM 200 MCG PO SCH (09:29)
[2017-06-17] MEDS: VIT C PO SCH (09:29)
[2017-06-17] MEDS: CRANBERRY FRUIT EXTRACT PO SCH (09:29)
[2017-06-17] MEDS: Acyclovir 200 MG CAPSULE PO SCH ×2 (09:29→21:23)
[2017-06-17] MEDS: Artificial Tears SOLN 15 ML BOTTLE OP SCH ×2 (09:29→21:43)
[2017-06-17] MEDS: Insulin LISPRO 300 UNITS/3 ML VIAL SQ SCH ×4 (09:29→21:43)
[2017-06-17] MEDS: Folic Acid 1 MG TABLET PO SCH (09:29)
[2017-06-17] MEDS: *HR* Heparin 5,000 UNIT/ML VIAL IVP PRN (16:28)
--- NOTE | 2017-06-17 17:41 | Internal Med Progress Note ---
Date of Encounter: 06/17/17 Time of Encounter: 17:39 - Assessment and plan (1) CML (chronic myelocytic leukemia) Current Visit: Yes Status: Acute Assessment and plan: per hx. Follows with Dr. Woods. Cont home nilotinib. Oncology followed. Follow -up outpatient as previously planned. (2) Deep vein thrombosis (DVT) of brachial vein of right upper extremity Current Visit: Yes Status: Acute Assessment and plan: presented with severe right arm pain for 1 week prior to presentation. Right upper extremity Alberto Doppler with an acute thrombus to right proximal brachial vein. Initially treated with heparin drip. Discussed case with Dr. De La Paz on and will start patient on Xarelto 15 mg twice a day for 3 weeks followed by 20 mg daily. Medically stable to discharge home however patient requesting to stay overnight for possible consultation with Dr. Newman tomorrow. Will ask Oncology to see prior to discharge. Qualifiers: Chronicity: acute Qualified Code(s): I82.621 - Acute embolism and thrombosis of deep veins of right upper extremity (3) Essential (primary) hypertension Current Visit: No Status: Acute Assessment and plan: per hx. BP controlled. Cont home BP medication. Monitor BP and titrate PRN (4) COPD (chronic obstructive pulmonary disease) Current Visit: No Status: Chronic Assessment and plan: per hx. with chronic respiratory failure, on home oxygen. Adequately saturating on home O2 dose. No evidence of exacerbation. Continue home inhalers. Qualifiers: COPD type: unspecified COPD Qualified Code(s): J44.9 - Chronic obstructive pulmonary disease, unspecified (5) Diabetes Current Visit: No Status: Chronic Assessment and plan: per hx. Blood sugars variable. Holding home oral hyperglycemics. SSI. Monitor blood sugar and titrate PRN Qualifiers: Diabetes mellitus type: type 2 Diabetes mellitus alf insulin use: with keno terminal operator use Diabetes mellitus complication status: without complication Qualified Code(s): E11.9 - Type 2 diabetes mellitus without complications; Z79.4 - USP (current) use of insulin (6) DVT prophylaxis Current Visit: No Status: Acute Assessment and plan: Xarelto - Subjective Interval history: Seen and examined at bedside. Patient is new to me, information obtained from chart review and patient report. She is complaining of intermittent right arm pain with activity/movement. No pain when at rest. Discussed with her the conversation I had with Dr. De La Paz regarding anticoagulation and patient is agreeable however she is requesting to stay overnight possible consultation by Dr. Barnes. No chest pain or shortness of breath. Reports compliance with anticoagulation. - Constitutional Vitals: Temp Pulse Resp BP Pulse Ox 98.6 F 81 18 129/66 96 06/17/17 15:59 06/17/17 15:59 06/17/17 15:59 06/17/17 15:59 06/17/17 15:59 General appearance: Present: A&O X 3, no acute distress, answers questions appropriately - Head Head exam: Present: atraumatic, normocephalic - Eye Eye exam: Present: PERRL, conjuntiva pink, sclera anicteric Pupils: Present: PERRL - Neck Neck exam general surgery: Present: supple, trachea midline. Absent: lymphadenopathy - Respiratory Respiratory exam: Present: CTAB. Absent: accessory muscle use, rales, rhonchi, wheezes - Cardiovascular Cardiovascular exam: Present: RRR, +S1, +S2. Absent: diastolic murmur, gallop, rubs, systolic murmur - GI/Abdominal GI/Abdominal exam: Present: normal bowel sounds, soft, no peritoneal signs. Absent: distended, tenderness - Extremities Exam Extremities exam: Present: warm, radial pulses palpable and symmetrical. Absent : calf tenderness, cyanotic, pedal edema - Neurological Exam Neurological exam: Present: CN II-XII intact, oriented X3, no focal deficits. Absent: pronater drift, facial droop, speech deficit - Skin Skin exam: Present: dry, intact Internal Medicine: Result - Labs CBC & Chem 7: 06/17/17 06:00 06/17/17 06:00 Labs: Short CBC 06/17/17 Range/Units 06:00 WBC 8.1 (4.3-11.1) K/mcL Hgb 12.8 (11.5-15.4) g/dL Hct 38.6 (35.3-44.9) % Plt Count 213 (140-400) K/mcL Neutrophils # 5.0 (1.6-8.9) K/mcL BMP 06/17/17 06:00 Sodium 139 Potassium 3.4 L Chloride 105 Carbon Dioxide 26 BUN 21 Creatinine 0.81 Glucose 193 H Calcium 10.7 H - ABG Interpretation ABG results: PT/INR, D-dimer PT 15.3 Seconds (9.4-12.1) H 06/16/17 02:19 Consult Discharge Plan - Plan Referrals: Jeffery Lane MD [Primary Care Provider] -
[2017-06-17] MEDS: Mirtazapine 15 MG TABLET PO SCH (21:23)
[2017-06-17] MEDS: *HR* OxyCODONE Immed Rel 5 MG TABLET PO PRN (21:51)
[2017-06-17] MEDS: *HR* Rivaroxaban 15 MG TABLET PO SCH (21:55)
[2017-06-18] MEDS: Acetaminophen 325 MG TABLET PO PRN (02:00)
[2017-06-18 07:24] LABS: Hemoglobin 12.5 g/dL (11.5-15.4); Immature Platelets 6.6 % (1.1-6.1); Mean Corpuscular HGB Conc 32.9 g/dL (31.6-35.5); Mean Corpuscular Hemoglobin 28.3 pg (28.0-33.3); Mean Platelet Volume 11.3 fL (9.4-12.4); Red Blood Count 4.42 M/mcL (3.82-4.97); Red Cell Distribution Width 15.8 % (11.5-14.5)
[2017-06-18 07:48] LABS: BUN/Creatinine Ratio 28 (6-26); Blood Urea Nitrogen 22 mg/dL (8-23); Calcium 10.5 mg/dL (8.6-10.3); Carbon Dioxide 26 mEq/L (23-29); Chloride 106 mEq/L (98-107); Glucose 181 mg/dL (70-105); Osmolality,Calculated 298 (280-300); Potassium 3.5 mEq/L (3.5-5.1); Sodium 140 mEq/L (136-145); eGFR For African Americans > 60 (> 60); eGFR For Non-African Americans > 60 (> 60)
[2017-06-18] MEDS: NILOTINIB HCL PO SCH (08:03)
[2017-06-18] MEDS: Potassium Effervescent 25 MEQ TABLET.EFF PO SCH (09:28)
[2017-06-18] MEDS: Metoprolol XL (24 HR) Succ 50 MG TAB.ER.24H PO SCH (09:29)
[2017-06-18] MEDS: *HR* Rivaroxaban 15 MG TABLET PO SCH (09:30)
[2017-06-18] MEDS: Acyclovir 200 MG CAPSULE PO SCH (09:30)
[2017-06-18] MEDS: Folic Acid 1 MG TABLET PO SCH (09:30)
[2017-06-18] MEDS: Isosorbide MONOnitrate (24 HR) 60 MG TAB.ER.24H PO SCH (09:30)
[2017-06-18] MEDS: Lactobacillus 1 EACH CAP.SPRINK PO SCH (09:31)
[2017-06-18] MEDS: Insulin LISPRO 300 UNITS/3 ML VIAL SQ SCH (09:31)
[2017-06-18] MEDS: Artificial Tears SOLN 15 ML BOTTLE OP SCH (09:32)
[2017-06-18] MEDS: SELENIUM 200 MCG PO SCH (09:33)
[2017-06-18] MEDS: CRANBERRY FRUIT EXTRACT PO SCH (09:33)
[2017-06-18] MEDS: VIT C PO SCH (09:33)
[2017-06-18] MEDS: amLODIPine 5 MG TABLET PO SCH (09:42)
--- NOTE | 2017-06-18 10:47 | Discharge Summary ---
Orders not resulted at time of discharge: Pending orders 06/19/17 04:00 BMP [Basic Metabolic Panel] AM 0400 Complete Blood Count w/o Diff [HEME] AM 0400 06/20/17 04:00 BMP [Basic Metabolic Panel] AM 0400 Complete Blood Count w/o Diff [HEME] AM 0400 06/21/17 04:00 BMP [Basic Metabolic Panel] AM 0400 Complete Blood Count w/o Diff [HEME] AM 0400 06/22/17 04:00 BMP [Basic Metabolic Panel] AM 0400 Complete Blood Count w/o Diff [HEME] AM 0400 Date of Encounter: 06/18/17 Time of Encounter: 10:45 - Discharge Diagnosis (1) Deep vein thrombosis (DVT) of brachial vein of right upper extremity Priority: Primary Status: Acute Comments: Patient was seen byHem/onc recommend increasing Xarelto to BID Follow up with PCP and Hem /onc as out patient Qualifiers: Chronicity: acute Qualified Code(s): I82.621 - Acute embolism and thrombosis of deep veins of right upper extremity (2) CML (chronic myelocytic leukemia) Priority: Secondary Status: Acute Comments: Follow up with hem onc as outpatient (3) COPD (chronic obstructive pulmonary disease) Priority: Secondary Status: Chronic Comments: 1 Patient has been stable, no wheezes has been complaining of cough, with yellow sputum production. We will send home with [place] and have patient follow up Qualifiers: COPD type: unspecified COPD Qualified Code(s): J44.9 - Chronic obstructive pulmonary disease, unspecified (4) Hypertension Priority: Secondary Status: Chronic Comments: stable cont home medication Qualifiers: Hypertension type: essential hypertension Qualified Code(s): I10 - Essential (primary) hypertension Hospital course: Ms. Sanchez is a 76 year old female past medical history of breast cancer, CML myeloma, CHF COPD diabetes hyperlipidemia hypertension pulmonary embolism. Patient presented to [facility] ER for right upper extremity pain. A CT of his shoulder showed arthritis Doppler imaging showed right brachial vein thrombus which was acute. She was initiated on IV heparin. Hematology/oncology was consulted recommending [id number] mg daily- She will be started on Xarelto mg twice a day for 3 weeks followed by 20 mg daily. Heparin drip has been stopped. She denies any pain at this time she will follow-up with oncology as an outpatient as well as with primary care physician as outpatient. Patient verbalized understanding concerning medication as well as outpatient follow-up. Patient also complained of some id. changes describing thick yellow sputum in the morning when coughing. We will place on Z-Rishi patient again will follow with PCP. She is hemodynamically stable and ready for discharge. - Time Spent with Patient Total time spent providing and/or coordinating discharge services: - Discharge Medications Prescriptions: Azithromycin [Zithromax] 250 mg PO DAILY 4 Days #4 tablet Rivaroxaban [Xarelto] 15 mg PO BID 21 Days #42 tablet Rivaroxaban [Xarelto] 20 mg PO DAILY 30 Days #30 tablet Home Medications: Amlodipine [Norvasc] 5 mg PO BID 11/12/14 [History] Cranberry Fruit Extract/Vit C [Azo Cranberry Softgel] 1 each PO DAILY 11/12/14 [ History] Ergocalciferol (VITAMIN D2) [Drisdol (50,000 Unit)] 50,000 unit PO QWEEK [History] Exenatide Microspheres [Bydureon] 2 mg SQ FR 11/12/14 [History] Insulin LISPRO [Humalog Kwikpen U-200] 2 - 15 unit SQ ACHS PRN 11/12/14 [History ] Levothyroxine [Synthroid] 125 mcg PO DAILY 11/12/14 [History] Nitroglycerin 0.4 mg SL Q5MIN PRN 11/12/14 [History] Rosuvastatin [Crestor] 40 mg PO HS 11/12/14 [History] Saccharomyces Boulardii [Probiotic] 250 mg PO DAILY 11/12/14 [History] Losartan Potassium [Cozaar] 100 mg PO DAILY 05/22/16 [History] Metformin HCl [Metformin HCl ER] 500 mg PO DAILY 05/22/16 [History] Metoprolol XL (24 HR) Succ [Toprol Xl] 100 mg PO BID 05/22/16 [History] Montelukast [Singulair] 10 mg PO DAILY 05/22/16 [History] Selenium 200 mcg PO DAILY 05/22/16 [History] Potassium Chloride [Klor-Con] 25 meq PO BID 07/10/16 [History] Acyclovir [Zovirax] 400 mg PO BID 09/06/16 [History] Furosemide [Lasix] 20 mg PO DAILY PRN 09/06/16 [History] Oxygen 2.5 l .ROUTE AD 09/06/16 [History] Folic Acid 1 mg PO DAILY #90 tablet 03/27/17 [Rx] Nilotinib HCl [Tasigna] 1 tab PO BID #180 capsule 05/14/17 [Rx] Docusate [Colace] 100 mg PO BID #60 capsule 06/06/17 [Rx] Mirtazapine [Remeron] 15 mg PO HS #30 tablet 06/06/17 [Rx] Albuterol Sulfate [Albuterol Inhaler] 1 puff IH Q4HR PRN 06/16/17 [History] Calcitriol [Rocaltrol] 0.25 mcg PO DAILY 06/16/17 [History] Isosorbide MONOnitrate [Isosorbide Mononitrate ER] 120 mg PO DAILY 06/16/17 [ History] Propylene Glycol/Peg 400 [Systane Gel Eye Drops] 10 ml OP BID 06/16/17 [History] Azithromycin [Zithromax] 250 mg PO DAILY 4 Days #4 tablet 06/18/17 [Rx] Rivaroxaban [Xarelto] 15 mg PO BID 21 Days #42 tablet 06/18/17 [Rx] Rivaroxaban [Xarelto] 20 mg PO DAILY 30 Days #30 tablet 06/18/17 [Rx] Allergies/Adverse Reactions: 3 Allergy/AdvReac Type Severity Reaction Status Date / Time No Known Allergies Allergy Verified 06/16/17 16:08 Date of admission: 06/16/17 03:44 Primary care physician: Jeffery Lane MD Discharging clinician: Fidelia Monique Anticipated date of discharge: 06/18/17 - Constitutional Vitals: Temp Pulse Resp BP Pulse Ox 98.0 F 88 17 157/80 99 06/18/17 08:15 06/18/17 08:15 06/18/17 08:15 06/18/17 08:15 06/18/17 08:15 General appearance: Present: A&O X 3, no acute distress, answers questions appropriately - Patient Status Disposition: Home, Self-Care Condition: Fair - Discharge Instructions Instructions: Peripheral Vascular Disorders (DC) Follow Up With: Jeffery Lane MD [Primary Care Provider] - (Appointment has been webrequested our offices will call you with a time and date.) Brannon Barnes MD [Partnered Physician] - - Diet and Activity Activity: resume usual activities as tolerated Diet: advance to your usual diet
[2017-06-18 11:08] VITALS: BP 129/65
[2017-06-18] MEDS ORDERED: Azithromycin 250 MG TABLET PO ONE (11:15)
--- NOTE | 2017-06-18 12:27 | Electrocardiograph Report ---
[address] [place], [place] [address] Test Date: 2017-06-15 Pat Name: Adriana Sanchez Department: 103 Room: 3B Gender: F Door Patcher: LRS : 1940 Requested By: Corby Weinberg Order Number: [id number] Reading MD: Pancho Hall Measurements Intervals [place] Rate: 85 P: 83 SD: 200 QRS: 14 QRSD: 98 T: 40 QT: 371 QTc: 414 Interpretive Statements SINUS RHYTHM Poor R wave progression Electronically Signed On 06-18-2017 12:25:55 EDT by Pancho Hall
== END 2017-06-18 13:15 | disposition home or self-care (01) | DRG 300 ==
LOC: EMEROO 22:09 → 3ANU 22:09 → 3BNU 06-16 03:43
PROVIDERS: ADMIT Internal Medicine; ATTEND Student in an Organized Health Care Education/Training Program

== ENCOUNTER 2017-07-04 09:01 | Observation (INO) ==
[2017-07-04] MEDS ORDERED: *HR* HYDROcodone/Acet 5/325 mg TABLET PO ONE (09:16)
[2017-07-04] MEDS ORDERED: *HR* OxyCODONE/APAP 5/325 TABLET PO ONE (09:21)
[2017-07-04] MEDS ORDERED: 0.9 % Sodium Chloride 1,000 ML IVC ONE (09:30)
[2017-07-04] MEDS ORDERED: *HR* FentaNYL (PF) 100 MCG/2 ML VIAL IVP ONE ×3 (09:30→15:06)
[2017-07-04] MEDS ORDERED: Isovue-370 500 ML INFUS..BTL IV ONE (09:37)
--- NOTE | 2017-07-04 09:52 | Emergency Department Note ---
Disposition Clinical Impression: Right upper limb pain, Effusion of glenohumeral joint of right upper extremity Disposition: Admitted As Inpatient Condition: Fair General Adult HPI - General Chief complaint: ED Extremity Injury, Upper Stated complaint: R arm pain Time Seen by Provider: 07/04/17 09:09 Source: patient Limitations: no limitations - History of Present Illness Pain Scale: 10 - Related Data Home Medications Medication Instructions Recorded Confirmed Amlodipine [Norvasc] 5 mg PO BID 11/12/14 07/04/17 Cranberry Fruit Extract/Vit C [Azo 1 each PO DAILY 11/12/14 07/04/17 Cranberry Softgel] Ergocalciferol (VITAMIN D2) 50,000 unit PO QWEEK 11/12/14 07/04/17 [Drisdol (50,000 Unit)] Exenatide Microspheres [Bydureon] 2 mg SQ FR 11/12/14 07/04/17 Insulin LISPRO [Humalog Kwikpen 2 - 15 unit SQ ACHS PRN 11/12/14 07/04/17 U-200] Levothyroxine [Synthroid] 125 mcg PO DAILY 11/12/14 07/04/17 Nitroglycerin 0.4 mg SL Q5MIN PRN 11/12/14 07/04/17 Rosuvastatin [Crestor] 40 mg PO HS 11/12/14 07/04/17 Saccharomyces Boulardii [Probiotic] 250 mg PO DAILY 11/12/14 07/04/17 Losartan Potassium [Cozaar] 100 mg PO DAILY 05/22/16 07/04/17 Metformin HCl [Metformin HCl ER] 500 mg PO DAILY 05/22/16 07/04/17 Metoprolol XL (24 HR) Succ [Toprol 100 mg PO BID 05/22/16 07/04/17 Xl] Montelukast [Singulair] 10 mg PO DAILY 05/22/16 07/04/17 Selenium 200 mcg PO DAILY 05/22/16 07/04/17 Potassium Chloride [Klor-Con] 25 meq PO BID 07/10/16 07/04/17 Acyclovir [Zovirax] 400 mg PO BID 09/06/16 07/04/17 Furosemide [Lasix] 40 mg PO DAILY PRN 09/06/16 07/04/17 Oxygen 2.5 l .ROUTE AD 09/06/16 07/04/17 Albuterol Sulfate [Albuterol 1 puff IH Q4HR PRN 06/16/17 07/04/17 Inhaler] Isosorbide MONOnitrate [Isosorbide 120 mg PO DAILY 06/16/17 07/04/17 Mononitrate ER] Propylene Glycol/Peg 400 [Systane 10 ml OP BID 06/16/17 07/04/17 Gel Eye Drops] Previous Rx's Medication Instructions Recorded Folic Acid 1 mg PO DAILY #90 tablet 03/27/17 Nilotinib HCl [Tasigna] 1 tab PO BID #180 capsule 05/14/17 Docusate [Colace] 100 mg PO BID #60 capsule 06/06/17 Mirtazapine [Remeron] 15 mg PO HS #30 tablet 06/06/17 Rivaroxaban [Xarelto] 15 mg PO BID 21 Days #42 tablet 06/18/17 Allergies Allergy/AdvReac Type Severity Reaction Status Date / Time No Known Allergies Allergy Verified 06/27/17 13:30 Past Medical History - Past Medical History Medical history: Reports: asthma, cancer, CHF, COPD, DVT, diabetes, hyperlipidemia, hypertension, pulmonary embolus, other Surgical history: Reports: cholecystectomy, other Psychiatric history: Reports: anxiety, depression 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NAL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: Reports: no 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[employer]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 - Social History Smoking Status: Former smoker Smokeless Tobacco Status: No Alcohol use: Reports: none Drug use: Reports: none Physical Exam - General Limitations: no limitations General appearance: alert, in no apparent distress Course Vital Signs Temperature 97.7 F 07/04/17 09:02 Pulse Rate 83 07/04/17 09:02 Respiratory Rate 18 07/04/17 09:02 Blood Pressure 196/81 07/04/17 09:02 O2 Sat by Pulse Oximetry 96 07/04/17 09:02 Temperature 97.8 F 07/04/17 15:25 Pulse Rate 89 07/04/17 15:25 Respiratory Rate 18 07/04/17 15:25 Blood Pressure 172/83 07/04/17 15:25 O2 Sat by Pulse Oximetry 98 07/04/17 15:25 Oxygen Delivery Oxygen Delivery Nasal Cannula Medical Decision Making - Lab Data Result diagrams: 07/04/17 09:31 07/04/17 09:31 Lab Results 07/04/17 07/04/17 07/04/17 Range/Units 09:31 09:31 09:47 WBC 12.0 H (4.3-11.1) K/mcL RBC 5.06 H (3.82-4.97) M/mcL Hgb 14.4 (11.5-15.4) g/dL Hct 42.9 (35.3-44.9) % MCV 84.8 (83.0-100.0) fL MCH 28.5 (28.0-33.3) pg MCHC 33.6 (31.6-35.5) g/dL RDW 14.8 H (11.5-14.5) % Plt Count 347 (140-400) K/mcL MPV 10.7 (9.4-12.4) fL Immature Gran % 0.6 (0-4) % Seg Neutrophils % 75.8 % Lymphocytes % 15.4 % Monocytes % 6.9 % Eosinophils % 0.6 % Basophils % 0.7 % Neutrophils # 9.1 H (1.6-8.9) K/mcL Lymphocytes # 1.9 (0.6-4.6) K/mcL Monocytes # 0.8 (0.0-1.3) K/mcL Eosinophils # 0.1 (0.0-0.6) K/mcL Basophils # 0.1 (0.0-0.2) K/mcL ESR (0-15) mm/hr PT (9.4-12.1) Seconds INR Sodium 137 (136-145) mEq/L Potassium 3.8 (3.5-5.1) mEq/L Chloride 104 (98-107) mEq/L Carbon Dioxide 23 (23-29) mEq/L BUN 18 (8-23) mg/dL Creatinine 0.91 (0.60-1.20) mg/dL Est GFR ( Amer) > 60 (> 60) Est GFR (Non-Af Amer) > 60 (> 60) BUN/Creatinine Ratio 20 (6-26) Glucose 194 H (70-105) mg/dL Calculated Osmolality 291 (280-300) Lactic Acid 1.9 (0.5-2.2) mmol/L Calcium 11.1 H (8.6-10.3) mg/dL Troponin I < 0.03 (< 0.04) ng/mL C-Reactive Protein 7 (Less than 10) mg/L 07/04/17 07/04/17 Range/Units 09:47 09:47 WBC (4.3-11.1) K/mcL RBC (3.82-4.97) M/mcL Hgb (11.5-15.4) g/dL Hct (35.3-44.9) % MCV (83.0-100.0) fL MCH (28.0-33.3) pg MCHC (31.6-35.5) g/dL RDW (11.5-14.5) % Plt Count (140-400) K/mcL MPV (9.4-12.4) fL Immature Gran % (0-4) % Seg Neutrophils % % Lymphocytes % % Monocytes % % Eosinophils % % Basophils % % Neutrophils # (1.6-8.9) K/mcL Lymphocytes # (0.6-4.6) K/mcL Monocytes # (0.0-1.3) K/mcL Eosinophils # (0.0-0.6) K/mcL Basophils # (0.0-0.2) K/mcL ESR 69 H (0-15) mm/hr PT 14.1 H (9.4-12.1) Seconds INR 1.3 Sodium (136-145) mEq/L Potassium (3.5-5.1) mEq/L Chloride (98-107) mEq/L Carbon Dioxide (23-29) mEq/L BUN (8-23) mg/dL Creatinine (0.60-1.20) mg/dL Est GFR ( Amer) (> 60) Est GFR (Non-Af Amer) (> 60) BUN/Creatinine Ratio (6-26) Glucose (70-105) mg/dL Calculated Osmolality (280-300) Lactic Acid (0.5-2.2) mmol/L Calcium (8.6-10.3) mg/dL Troponin I (< 0.04) ng/mL C-Reactive Protein (Less than 10) mg/L Attestation Statement - Attestation Attestation: I examined this patient and my medical decision-making was reviewed with the Resident Physician. I agree with the documented findings, disposition and treatment plan as described except to the extent set forth below. Patient presents to the ED with the chief complaint of right shoulder pain. Severe. Increasing over the past 3 weeks. Denies injury. Has seen her oncologist and has an appointment [facility]. Pain is intolerable. On examination she is crying. Holding her shoulder and walking. Neurovascular intact distal to the pain. Currently on Xarelto for DVT. We will check CTA of the neck and shoulder concern for infection as the patient is immunocompromised on chemotherapy. Patient is adamantly refusing an MRI stating she cannot tolerate it. She is offered medication but is still refusing. We will check CT scan. Patient with a large effusion in her right shoulder. Discussed with orthopedics who will consult on her in the hospital. Antibiotics were ordered. Admitted to medicine.
[2017-07-04 10:06] LABS: Basophils # 0.1 K/mcL (0.0-0.2); Basophils % 0.7 %; Eosinophils # 0.1 K/mcL (0.0-0.6); Eosinophils % 0.6 %; Hematocrit 42.9 % (35.3-44.9); Hemoglobin 14.4 g/dL (11.5-15.4); Immature Granulocytes % 0.6 % (0-4); Lymphocytes # 1.9 K/mcL (0.6-4.6); Lymphocytes % 15.4 %; Mean Corpuscular HGB Conc 33.6 g/dL (31.6-35.5); Mean Corpuscular Hemoglobin 28.5 pg (28.0-33.3); Mean Corpuscular Volume 84.8 fL (83.0-100.0); Mean Platelet Volume 10.7 fL (9.4-12.4); Monocytes # 0.8 K/mcL (0.0-1.3); Monocytes % 6.9 %; Neutrophils # 9.1 K/mcL (1.6-8.9); Platelet Count 347 K/mcL (140-400); Red Blood Count 5.06 M/mcL (3.82-4.97); Red Cell Distribution Width 14.8 % (11.5-14.5); Segmented Neutrophils % 75.8 %
--- NOTE | 2017-07-04 10:11 | Emergency Department Note ---
Disposition Clinical Impression: Right upper limb pain, Effusion of glenohumeral joint of right upper extremity , Severe pain of right shoulder Disposition: Admitted As Inpatient Condition: Fair Time of Disposition: 15:10 General Adult HPI - General Chief complaint: ED Extremity Injury, Upper Stated complaint: R arm pain Time Seen by Provider: 07/04/17 09:09 Source: patient Limitations: no limitations Nursing Notes Reviewed: Yes Vital Signs Reviewed: Yes - History of Present Illness HPI Narrative: Patient is a 76-year-old female presents with a complaint of right upper extremity pain as 10/10 heavy in character that got acutely worse this morning around 5:30 AM. Patient states she was already up, going to the bathroom when without warning her pain became very severe. Patient states that her pain symptoms changing in intensity since her diagnosis of right upper extremity DVT. Patient was seen 1 week ago for pain exacerbation. Patient states she was on hydromorphone for pain but is currently out of her meds. Patient is a history of multiple myeloma and leukemia. Oncologist is Dr. Barnes. Patient denies any shortness of breath, fever, chills, chest pain, radiation of pain symptoms from shoulder medially but expresses distal radiation of pain. Patient is currently on oral anti-neoplastic medication. Last dose was this morning. Patient is on Xarelto. Pain Scale: 10 - Related Data Home Medications Medication Instructions Recorded Confirmed Amlodipine [Norvasc] 5 mg PO BID 11/12/14 07/04/17 Cranberry Fruit Extract/Vit C [Azo 1 each PO DAILY 11/12/14 07/04/17 Cranberry Softgel] Ergocalciferol (VITAMIN D2) 50,000 unit PO QWEEK 11/12/14 07/04/17 [Drisdol (50,000 Unit)] Exenatide Microspheres [Bydureon] 2 mg SQ FR 11/12/14 07/04/17 Insulin LISPRO [Humalog Kwikpen 2 - 15 unit SQ ACHS PRN 11/12/14 07/04/17 U-200] Levothyroxine [Synthroid] 125 mcg PO DAILY 11/12/14 07/04/17 Nitroglycerin 0.4 mg SL Q5MIN PRN 11/12/14 07/04/17 Rosuvastatin [Crestor] 40 mg PO HS 11/12/14 07/04/17 Saccharomyces Boulardii [Probiotic] 250 mg PO DAILY 11/12/14 07/04/17 Losartan Potassium [Cozaar] 100 mg PO DAILY 05/22/16 07/04/17 Metformin HCl [Metformin HCl ER] 500 mg PO DAILY 05/22/16 07/04/17 Metoprolol XL (24 HR) Succ [Toprol 100 mg PO BID 05/22/16 07/04/17 Xl] Montelukast [Singulair] 10 mg PO DAILY 05/22/16 07/04/17 Selenium 200 mcg PO DAILY 05/22/16 07/04/17 Potassium Chloride [Klor-Con] 25 meq PO BID 07/10/16 07/04/17 Acyclovir [Zovirax] 400 mg PO BID 09/06/16 07/04/17 Furosemide [Lasix] 40 mg PO DAILY PRN 09/06/16 07/04/17 Oxygen 2.5 l .ROUTE AD 09/06/16 07/04/17 Albuterol Sulfate [Albuterol 1 puff IH Q4HR PRN 06/16/17 07/04/17 Inhaler] Isosorbide MONOnitrate [Isosorbide 120 mg PO DAILY 06/16/17 07/04/17 Mononitrate ER] Propylene Glycol/Peg 400 [Systane 10 ml OP BID 06/16/17 07/04/17 Gel Eye Drops] Previous Rx's Medication Instructions Recorded Folic Acid 1 mg PO DAILY #90 tablet 03/27/17 Nilotinib HCl [Tasigna] 1 tab PO BID #180 capsule 05/14/17 Docusate [Colace] 100 mg PO BID #60 capsule 06/06/17 Mirtazapine [Remeron] 15 mg PO HS #30 tablet 06/06/17 Rivaroxaban [Xarelto] 15 mg PO BID 21 Days #42 tablet 06/18/17 Allergies Allergy/AdvReac Type Severity Reaction Status Date / Time No Known Allergies Allergy Verified 06/27/17 13:30 All systems ED: reviewed and negative except as stated. Review of Systems: As Per HPI Constitutional: Reports: weakness. Denies: fever, chills ENT ED: Denies: congestion Cardiovascular: Denies: chest pain Respiratory: Denies: cough, dyspnea Gastrointestinal: Denies: abdominal pain, nausea, vomiting Musculoskeletal: Denies: back pain Past Medical History - Past Medical History Attestation: Yes The following information was validated with the patient. 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 - Social History Smoking Status: Former smoker Smokeless Tobacco Status: No Alcohol use: Reports: none Drug use: Reports: none Physical Exam Vital Signs Temperature 97.7 F 07/04/17 09:02 Pulse Rate 83 07/04/17 09:02 Respiratory Rate 18 07/04/17 09:02 Blood Pressure 196/81 07/04/17 09:02 O2 Sat by Pulse Oximetry 96 07/04/17 09:02 Temperature 97.7 F 07/04/17 09:02 Pulse Rate 83 07/04/17 09:02 Respiratory Rate 18 07/04/17 09:02 Blood Pressure 196/81 07/04/17 09:02 O2 Sat by Pulse Oximetry 96 07/04/17 09:02 Oxygen Delivery Oxygen Delivery Room Air CONSTITUTIONAL: Very uncomfortable-appearing elderly female who is alert and oriented 3. Patient is nondiaphoretic nontoxic-appearing but is in distress secondary to her right upper extremity pain symptoms. HEAD: Normocephalic; atraumatic EYES: PERRL, no scleral icterus NOSE: The nose is normal in appearance without rhinorrhea NECK: No JVD or distended neck veins RESP: Normal chest excursion with respiration; breath sounds clear and equal bilaterally in upper lung perez, right lower lung field mild rails; but no wheezes, rhonchi CARD: Regular rhythm, without murmurs, rub or gallop ABD: Non-distended; non-tender, soft, without rigidity, rebound or guarding,no pulsatile mass CHEST: No pain with palpation SKIN: Normal for age and race; warm and dry without diaphoresis ; no apparent lesions EXTREMITIES: Pulses are 2 plus and equal times 4 extremities, right shoulder swollen compared to the left tender to palpation. Loss of range of motion secondary to pain. Patient has to use her left arm to elevate her right. Any movement causes discomfort. There is no discoloration to the extremity, no crepitus, and extremities non-erythematous - General Limitations: no limitations General appearance: alert, in no apparent distress Course - Reevaluation(s) Reevaluation #1: ESR is elevated. Patient has received pain meds and is currently comfortable pain currently 3/10 after 100 g of IV fentanyl Time: 10:36 Reevaluation #2: Patient is down at CT for imaging Time: 11:13 Reevaluation #3: Patient's pain symptoms is still 3/10. Patient has no complaints at this time and is currently comfortable. Currently waiting advanced imaging results. Time: 12:14 Vital Signs Temperature 97.7 F 07/04/17 09:02 Pulse Rate 83 07/04/17 09:02 Respiratory Rate 18 07/04/17 09:02 Blood Pressure 196/81 07/04/17 09:02 O2 Sat by Pulse Oximetry 96 07/04/17 09:02 Temperature 98.8 F 07/04/17 18:50 Pulse Rate 84 07/04/17 18:50 Respiratory Rate 18 07/04/17 18:50 Blood Pressure 172/61 07/04/17 18:50 O2 Sat by Pulse Oximetry 97 07/04/17 18:50 Oxygen Delivery Oxygen Delivery Nasal Cannula Medical Decision Making - MDM Narrative Medical decision making narrative: Persistent right upper extremity pain with history of leukemia and multiple myeloma with recent DVT of the right upper extremity. Due to patient's repeated return visits to the emergency department for pain control patient was evaluated for possible underlying symptoms that may be exacerbating patient's current issues. Patient is on chemotherapy and most likely immunocompromised this time, so patient was evaluated for underlying infection as well. Patient's lab work was clinically negative for any new clinically relevant abnormalities. Patient's currently at baseline concerning her anemia, calcium. ESR slightly elevated. Patient's CT imaging of her right upper extremity shows a large glenohumeral effusion, but other imaging was negative for any signs of underlying tissue inflammation of the neck and the chest. Patient placed on antibiotics ( vancomycin, Cefozolin) for suspected septic effusion, since patient still has an elevated WBC and abnormal ESR. Current plan is for patient to be admitted for pain control. An assessment for septic shoulder fusion. She is currently doing well on IV fentanyl. Patient currently following up with [facility] with Dr. Cramer outpatient and will consult [facility] for inpatient treatment. Spoke to Dr. Lamb spinal surgeon who states he will get the patient be appropriate follow- up once she is admitted. Dr. Peck the hospitalist has accepted patient for admission in stable condition. - Lab Data Lab results reviewed: Yes I reviewed the patient's lab results. Lab results narrative: Short CBC 07/04/17 Range/Units 09:31 WBC 12.0 H (4.3-11.1) K/mcL Hgb 14.4 (11.5-15.4) g/dL Hct 42.9 (35.3-44.9) % Plt Count 347 (140-400) K/mcL Neutrophils # 9.1 H (1.6-8.9) K/mcL BMP 07/04/17 Range/Units 09:31 Sodium 137 (136-145) mEq/L Potassium 3.8 (3.5-5.1) mEq/L Chloride 104 (98-107) mEq/L Carbon Dioxide 23 (23-29) mEq/L BUN 18 (8-23) mg/dL Creatinine 0.91 (0.60-1.20) mg/dL Glucose 194 H (70-105) mg/dL Calcium 11.1 H (8.6-10.3) mg/dL Cardiac Enzymes 07/04/17 Range/Units 09:31 Troponin I < 0.03 (< 0.04) ng/mL Result diagrams: 07/04/17 09:31 07/04/17 09:31 Lab Results 07/04/17 07/04/17 07/04/17 Range/Units 09:31 09:31 09:47 WBC 12.0 H (4.3-11.1) K/mcL RBC 5.06 H (3.82-4.97) M/mcL Hgb 14.4 (11.5-15.4) g/dL Hct 42.9 (35.3-44.9) % MCV 84.8 (83.0-100.0) fL MCH 28.5 (28.0-33.3) pg MCHC 33.6 (31.6-35.5) g/dL RDW 14.8 H (11.5-14.5) % Plt Count 347 (140-400) K/mcL MPV 10.7 (9.4-12.4) fL Immature Gran % 0.6 (0-4) % Seg Neutrophils % 75.8 % Lymphocytes % 15.4 % Monocytes % 6.9 % Eosinophils % 0.6 % Basophils % 0.7 % Neutrophils # 9.1 H (1.6-8.9) K/mcL Lymphocytes # 1.9 (0.6-4.6) K/mcL Monocytes # 0.8 (0.0-1.3) K/mcL Eosinophils # 0.1 (0.0-0.6) K/mcL Basophils # 0.1 (0.0-0.2) K/mcL ESR (0-15) mm/hr PT (9.4-12.1) Seconds INR Sodium 137 (136-145) mEq/L Potassium 3.8 (3.5-5.1) mEq/L Chloride 104 (98-107) mEq/L Carbon Dioxide 23 (23-29) mEq/L BUN 18 (8-23) mg/dL Creatinine 0.91 (0.60-1.20) mg/dL Est GFR ( Amer) > 60 (> 60) Est GFR (Non-Af Amer) > 60 (> 60) BUN/Creatinine Ratio 20 (6-26) Glucose 194 H (70-105) mg/dL Calculated Osmolality 291 (280-300) Lactic Acid 1.9 (0.5-2.2) mmol/L Calcium 11.1 H (8.6-10.3) mg/dL Troponin I < 0.03 (< 0.04) ng/mL C-Reactive Protein 7 (Less than 10) mg/L 07/04/17 07/04/17 Range/Units 09:47 09:47 WBC (4.3-11.1) K/mcL RBC (3.82-4.97) M/mcL Hgb (11.5-15.4) g/dL Hct (35.3-44.9) % MCV (83.0-100.0) fL MCH (28.0-33.3) pg MCHC (31.6-35.5) g/dL RDW (11.5-14.5) % Plt Count (140-400) K/mcL MPV (9.4-12.4) fL Immature Gran % (0-4) % Seg Neutrophils % % Lymphocytes % % Monocytes % % Eosinophils % % Basophils % % Neutrophils # (1.6-8.9) K/mcL Lymphocytes # (0.6-4.6) K/mcL Monocytes # (0.0-1.3) K/mcL Eosinophils # (0.0-0.6) K/mcL Basophils # (0.0-0.2) K/mcL ESR 69 H (0-15) mm/hr PT 14.1 H (9.4-12.1) Seconds INR 1.3 Sodium (136-145) mEq/L Potassium (3.5-5.1) mEq/L Chloride (98-107) mEq/L Carbon Dioxide (23-29) mEq/L BUN (8-23) mg/dL Creatinine (0.60-1.20) mg/dL Est GFR ( Amer) (> 60) Est GFR (Non-Af Amer) (> 60) BUN/Creatinine Ratio (6-26) Glucose (70-105) mg/dL Calculated Osmolality (280-300) Lactic Acid (0.5-2.2) mmol/L Calcium (8.6-10.3) mg/dL Troponin I (< 0.04) ng/mL C-Reactive Protein (Less than 10) mg/L - Radiology Data Radiology results reviewed: Yes I reviewed the patient's radiology results. Chest X-Ray 07/04/17 09:34 IMPRESSION: No acute cardiopulmonary disease. Mild dependent bibasilar atelectasis. D/ / Stanley Moreno MD / Stanley Moreno MD Interpreting Provider: Stanley Moreno MD Cervical Spine CT 07/04/17 09:49 IMPRESSION: No acute abnormality of the cervical spine. D/ / Judah Beckman MD / Judah Beckman MD Interpreting Provider: Judah Beckman MD Shoulder CT 07/04/17 09:49 IMPRESSION: Large right glenohumeral joint effusion, significantly increased since 06/16/2017. Consider aspiration if there is concern for septic arthritis. D/ / 07/04/2017 12:40:48 Michi Boothe MD / niall Interpreting Provider: Michi Boothe MD Thoracic Spine CT 07/04/17 09:49 IMPRESSION: No acute osseous abnormality. Moderate multilevel degenerative changes and multiple unchanged compression deformities D/ / Judah Beckman MD / Judah Beckman MD Interpreting Provider: Judah Beckman MD - EKG Data EKG #1 EKG attestation: Yes I reviewed and interpreted this EKG. EKG results narrative: EKG taken 07/04/2017 at 0940 hrs. shows a sinus rhythm at a rate of 77 bpm with no acute ST elevations or depressions leads, no QRS widening or QT prolongation. This EKG shows no change from previous EKG taken 06/21/2017.
[2017-07-04 10:25] LABS: BUN/Creatinine Ratio 20 (6-26); Blood Urea Nitrogen 18 mg/dL (8-23); C-Reactive Protein 7 mg/L (Less than 10); Calcium 11.1 mg/dL (8.6-10.3); Carbon Dioxide 23 mEq/L (23-29); Chloride 104 mEq/L (98-107); Glucose 194 mg/dL (70-105); Osmolality,Calculated 291 (280-300); Potassium 3.8 mEq/L (3.5-5.1); Sodium 137 mEq/L (136-145); Troponin I < 0.03 ng/mL (< 0.04); eGFR For African Americans > 60 (> 60); eGFR For Non-African Americans > 60 (> 60)
[2017-07-04] MEDS ORDERED: ceFAZolin 2,000 MG in Water for inj. (sterile) 20 ML IVP ONE (12:54)
[2017-07-04] MEDS ORDERED: Vancomycin (wt based) 1,000 MG VIAL IV STA (15:02)
[2017-07-04] MEDS ORDERED: Naloxone 0.4 MG/ML INJ IVP PRN (15:28)
[2017-07-04] MEDS ORDERED: Acetaminophen 325 MG TABLET PO PRN (15:38)
[2017-07-04] MEDS ORDERED: *HR* OxyCODONE Immed Rel 5 MG TABLET PO PRN (15:38)
[2017-07-04] MEDS ORDERED: Dextrose Gel 15 GM/37.5 ML TUBE PO PRN ×2 (15:45)
[2017-07-04] MEDS ORDERED: D5% in Water 1,000 ML IVC PRN (15:45)
[2017-07-04] MEDS ORDERED: *HR* Dextrose 50 % in Water (Syg) 50 ML SYRINGE IVP PRN (15:45)
[2017-07-04] MEDS ORDERED: Nitroglycerin 0.4 MG TAB.SUBL SL PRN (15:48)
[2017-07-04] MEDS ORDERED: Furosemide 40 MG TABLET PO PRN (15:48)
[2017-07-04 15:56] LABS: INR 1.3; Prothrombin Time 14.1 Seconds (9.4-12.1)
[2017-07-04] MEDS ORDERED: NON-FORMULARY MEDICATION 1 EACH EACH (Oxygen [Oxygen] 2.5 L) SCH (16:00)
[2017-07-04] MEDS ORDERED: *HR* LORazepam 2 MG/ML VIAL IVP ONE (16:45)
--- NOTE | 2017-07-04 16:45 | Orthopedic Consult Note ---
Date of Encounter: 07/04/17 Time of Encounter: 16:45 Assessment and Plan (1) Effusion of glenohumeral joint of right upper extremity Current Visit: Yes Status: Acute Based off labs, Exam and patients report, I have discussed this case with and at this time, we will obtain MRI STAT to assess for rotator cuff tear and other soft tissue abnormality. I discussed my concerns in depth with the patient, including the possibility of infection. Although my suspicion is low, if MRI is normal, I will plan to aspirate the shoulder in the morning to further pursue infectious workup. Patient voiced concern with MRI and claustrophobia, giving Lorazapam for the MRI. She is able to eat at this time. *Was updated by nurse at approximately 2000 that MRI unable to be performed due to stents in leg; plan to have [facility] completed [facility] on 07/05/17 History of Present Illness Chief complaint: Right Shoulder Pain HPI: Ms. Sanchez is a 76 year old female, presented to [facility] ED for ongoing Right Shoulder pain. She has a history of diabetes, hypertension, COPD on home oxygen , multiple myeloma, CML, sleep apnea on CPAP during night. She is currently undergoing chemotherapy for multiple myeloma and she had history of DVT. She cannot take NSAIDs because of chronic kidney disease. She has an extensive history and multiple admissions for right upper extremity pain. 05/28: Shoulder XRAYS: IMPRESSION: Mild degenerative change is seen within the AC joint. Osteopenia.No acute abnormality is seen within the right shoulder or right humerus. 06/04: Saw PCP for Right Upper extremity pain: musculoskeletal in nature per PCPs office note. Diagnosed with myalgia, and referred to oncology to discuss potential reaction from change of chemotherapy drug. 06/15 - Humerus XRAY: IMPRESSION:No fracture or radiographic evidence for myeloma in the right humerus. 06/16: She was hospitalized with acute DVT right upper extremity while on Xarelto 15 mg once a day. Venous Doppler 06/16/2017 showed acute DVT in the right brachial vein. D-dimer elevated around 800 She was started on Xarelto 15 mg twice a day in the hospital which she completed. Hematology/oncology was consulted Patient also complained of productive coughing and placed on a Z-Rishi. Shoulder CT: FINDINGS: Bones: No fracture or focal bone lesion. Soft Tissue: No evidence for hematoma formation. Joint: Joint space alignment is normal. There is acromioclavicular and glenohumeral spurring. A joint effusion is identified. Osteoarthritis and joint effusion without evidence for hematoma. 06/18/17 ED visit: presenting with increasing pain of the right arm and shoulder. Repeat venous Doppler 06/21/2017 which showed resolution of DVT. RX'ed Zpack for productive cough with COPD, no pneumonia on CXR. 06/21/17 - Shoulder XRAYS: IMPRESSION: Osteoarthritis with no definite fracture or malalignment Labs: white cell 16. No signs of septic joins on this point per ER report. May related to history of Lymphoma. Troponin negative. Impression: shoulder pain , muscular in natural, will discharge home, activity as tolerated and return to ER for worsening pain, chil and fever, hand and arm swelling. 06/25/17: PCP Follow up - The patient was discharged home and is now here for follow-up. Reported improvement in RUE pain and shoulder pain with hydrocodone APAP for severe pain as needed. 06/27/17 - Oncology follow up - no reported shoulder pain. 07/04/17: SHOULDER CT: FINDINGS: There is a large right shoulder joint effusion. This appears to communicatewith the subacromial-subdeltoid bursa. There is minimal inferior subluxation of the glenohumeral joint related to the joint effusion. No bony destruction is identified. There are small AC and glenohumeral osteophytes. There is no evidence of acute fracture or dislocation. Compression deformities are partially imaged in the thoracic spine. These appear chronic. There is moderate fatty atrophy of the supraspinatus and infraspinatus muscles. There is no air within the glenohumeral joint effusion. Atherosclerosis is present including coronary arterial calcification. CT/CT shoulder RT w con IMPRESSION: Large right glenohumeral joint effusion, significantly increased since 06/16/2017. Consider aspiration if there is concern for septic arthritis. During questioning, patient reports she has had intermittent right shoulder pain for months, but it continues to worsen. She denies previous injury or trauma. Admits to difficulty with AROM. PROM is tolerable, but limited due to significant weakness. Her pain is currently controlled with Fentanyl, but reports pain radiates from shoulder down to upper arm and intro forearm. She denies n/T. She denies history of infection, or any abrasions to region. She has not used her right upper extremity much over the last month. She denies fever, N/V. Admits to general malaise. On Exam: A&O x 3 Right Shoulder: Moderate effusion noted, no erythema or warmth. No obvious lesions or abrasions: ROM - limited in all directions. AROM painful. PROM tolerable and patient tolerates forward flexion to shoulder level. Strength: Weak in all direction, IR/ER particularly weak. NV intact distally. Labs: Vitals are stable; afebrile. Mild leukocytosis of 12 - decreased from prior admission of 16 on 06/21. ESR 69 mild elevation CRP 7 - normal Past Med Surg Social Fam HX - Past Medical History Medical history: asthma, cancer, CHF, COPD, DVT, diabetes, hyperlipidemia, hypertension, pulmonary embolus, other Psychiatric history: anxiety, depression - Past Surgical History Surgical History: cholecystectomy, other - Social History Smoking Status: Former smoker Smokeless Tobacco Status: No Alcohol use: none Drug use: none - Family History Father Hx Family Endocrine Disorder: Yes (father had diabetes) Medications and Allergies Amlodipine [Norvasc] 5 mg PO BID 11/12/14 [History] Cranberry Fruit Extract/Vit C [Azo Cranberry Softgel] 1 each PO DAILY 11/12/14 [ History] Ergocalciferol (VITAMIN D2) [Drisdol (50,000 Unit)] 50,000 unit PO QWEEK [History] Exenatide Microspheres [Bydureon] 2 mg SQ FR 11/12/14 [History] Insulin LISPRO [Humalog Kwikpen U-200] 2 - 15 unit SQ ACHS PRN 11/12/14 [History ] Levothyroxine [Synthroid] 125 mcg PO DAILY 11/12/14 [History] Nitroglycerin 0.4 mg SL Q5MIN PRN 11/12/14 [History] Rosuvastatin [Crestor] 40 mg PO HS 11/12/14 [History] Saccharomyces Boulardii [Probiotic] 250 mg PO DAILY 11/12/14 [History] Losartan Potassium [Cozaar] 100 mg PO DAILY 05/22/16 [History] Metformin HCl [Metformin HCl ER] 500 mg PO DAILY 05/22/16 [History] Metoprolol XL (24 HR) Succ [Toprol Xl] 100 mg PO BID 05/22/16 [History] Montelukast [Singulair] 10 mg PO DAILY 05/22/16 [History] Selenium 200 mcg PO DAILY 05/22/16 [History] Potassium Chloride [Klor-Con] 25 meq PO BID 07/10/16 [History] Acyclovir [Zovirax] 400 mg PO BID 09/06/16 [History] Furosemide [Lasix] 40 mg PO DAILY PRN 09/06/16 [History] Oxygen 2.5 l .ROUTE AD 09/06/16 [History] Folic Acid 1 mg PO DAILY #90 tablet 03/27/17 [Rx] Nilotinib HCl [Tasigna] 1 tab PO BID #180 capsule 05/14/17 [Rx] Docusate [Colace] 100 mg PO BID #60 capsule 06/06/17 [Rx] Mirtazapine [Remeron] 15 mg PO HS #30 tablet 06/06/17 [Rx] Albuterol Sulfate [Albuterol Inhaler] 1 puff IH Q4HR PRN 06/16/17 [History] Isosorbide MONOnitrate [Isosorbide Mononitrate ER] 120 mg PO DAILY 06/16/17 [ History] Propylene Glycol/Peg 400 [Systane Gel Eye Drops] 10 ml OP BID 06/16/17 [History] Rivaroxaban [Xarelto] 15 mg PO BID 21 Days #42 tablet 06/18/17 [Rx] 3 Allergy/AdvReac Type Severity Reaction Status Date / Time No Known Allergies Allergy Verified 06/27/17 13:30 All Systems Reviewed: The remainder of the systems were reviewed and are negative - Constitutional Constitutional: as per HPI, weakness, no fever(s), no frequent falls, no weight gain - Cardiovascular Cardiovascular: as per HPI - Respiratory Respiratory: as per HPI - Musculoskeletal Musculoskeletal: as per HPI Physical Exam - Constitutional Vitals: Temp Pulse Resp BP Pulse Ox 97.8 F 89 18 172/83 98 07/04/17 15:25 07/04/17 15:25 07/04/17 15:25 07/04/17 15:25 07/04/17 15:25 General appearance IM: mild distress, A&O X 3, answers questions appropriately Results - Labs Result Diagrams: 07/05/17 13:57 07/05/17 00:54 Labs: Abnormal lab results WBC 12.0 K/mcL (4.3-11.1) H 07/04/17 09:31 RBC 5.06 M/mcL (3.82-4.97) H 07/04/17 09:31 RDW 14.8 % (11.5-14.5) H 07/04/17 09:31 Neutrophils # 9.1 K/mcL (1.6-8.9) H 07/04/17 09:31 ESR 69 mm/hr (0-15) H 07/04/17 09:47 PT 14.1 Seconds (9.4-12.1) H 07/04/17 09:47 Glucose 194 mg/dL (70-105) H 07/04/17 09:31 POC Glucose 192 mg/dL (70-99) H 07/04/17 16:15 Calcium 11.1 mg/dL (8.6-10.3) H 07/04/17 09:31 All other labs normal. - Diagnostic results Shoulder CT: image reviewed Consult Discharge Plan - Plan Referrals: Jeffery Lane MD [Primary Care Provider] -
[2017-07-04] MEDS ORDERED: Insulin LISPRO 300 UNITS/3 ML VIAL SQ SCH (18:00)
[2017-07-04] MEDS: NILOTINIB HCL PO SCH (20:01)
--- NOTE | 2017-07-04 21:46 | Internal Med History&Physical ---
Date of Encounter: 07/04/17 Time of Encounter: 16:37 Internal Medicine - H&P: HPI Chief complaint: Right Arm/Shoulder Pain Admitted From: Emergency Dept Plans for Post Hospital Care: Home History of present illness: Ms. Sanchez is a 76 year old white female with PMH of multiple myeloma/ leukemia and RUE DVT who presented to ED today for right arm and shoulder pain. She states that she has been having pain in RUE for last 3 weeks. Today, it because "worse it has been," so she decided to come to ED. She is on xarelto for confirmed chronic RUE DVT. She is followed by heme/onc currently on chemotherapy. In the ED, CT right shoulder showed large right glenohumeral joint effusion, significantly increased from 06/16/17. Patient refused MRI in ED. Patient denies fever, chills, nausea, vomiting, chest pain, or SOB. Labwork showed mildly elevated WBC of 12.0. During my interview, she states that pain is much better now with pain medication. Past Med Surg Social Fam HX - Past Medical History Attestation: Yes The following information was validated with the patient. Source: patient Medical history: asthma, cancer, CHF, COPD, DVT, diabetes, hyperlipidemia, hypertension, pulmonary embolus, other Psychiatric history: anxiety, depression - Past Surgical History Surgical History: cholecystectomy, other - Social History Smoking Status: Former smoker Smokeless Tobacco Status: No Alcohol use: none Drug use: none - Family History Father Hx Family Endocrine Disorder: Yes (father had diabetes) Internal Medicine - H&P: Meds Amlodipine [Norvasc] 5 mg PO BID 11/12/14 [History] Cranberry Fruit Extract/Vit C [Azo Cranberry Softgel] 1 each PO DAILY 11/12/14 [ History] Ergocalciferol (VITAMIN D2) [Drisdol (50,000 Unit)] 50,000 unit PO QWEEK [History] Exenatide Microspheres [Bydureon] 2 mg SQ FR 11/12/14 [History] Insulin LISPRO [Humalog Kwikpen U-200] 2 - 15 unit SQ ACHS PRN 11/12/14 [History ] Levothyroxine [Synthroid] 125 mcg PO DAILY 11/12/14 [History] Nitroglycerin 0.4 mg SL Q5MIN PRN 11/12/14 [History] Rosuvastatin [Crestor] 40 mg PO HS 11/12/14 [History] Saccharomyces Boulardii [Probiotic] 250 mg PO DAILY 11/12/14 [History] Losartan Potassium [Cozaar] 100 mg PO DAILY 05/22/16 [History] Metformin HCl [Metformin HCl ER] 500 mg PO DAILY 05/22/16 [History] Metoprolol XL (24 HR) Succ [Toprol Xl] 100 mg PO BID 05/22/16 [History] Montelukast [Singulair] 10 mg PO DAILY 05/22/16 [History] Selenium 200 mcg PO DAILY 05/22/16 [History] Potassium Chloride [Klor-Con] 25 meq PO BID 07/10/16 [History] Acyclovir [Zovirax] 400 mg PO BID 09/06/16 [History] Furosemide [Lasix] 40 mg PO DAILY PRN 09/06/16 [History] Oxygen 2.5 l .ROUTE AD 09/06/16 [History] Folic Acid 1 mg PO DAILY #90 tablet 03/27/17 [Rx] Nilotinib HCl [Tasigna] 1 tab PO BID #180 capsule 05/14/17 [Rx] Docusate [Colace] 100 mg PO BID #60 capsule 06/06/17 [Rx] Mirtazapine [Remeron] 15 mg PO HS #30 tablet 06/06/17 [Rx] Albuterol Sulfate [Albuterol Inhaler] 1 puff IH Q4HR PRN 06/16/17 [History] Isosorbide MONOnitrate [Isosorbide Mononitrate ER] 120 mg PO DAILY 06/16/17 [ History] Propylene Glycol/Peg 400 [Systane Gel Eye Drops] 10 ml OP BID 06/16/17 [History] Rivaroxaban [Xarelto] 15 mg PO BID 21 Days #42 tablet 06/18/17 [Rx] 3 Allergy/AdvReac Type Severity Reaction Status Date / Time No Known Allergies Allergy Verified 06/27/17 13:30 - Constitutional Constitutional: no anorexia, no chills, no fatigue, no fever(s), no lethargy, no malaise, no weakness, no weight gain, no weight loss - EENT Eyes: no blurry vision, no diplopia, no loss of vision, no pain, no other visual disturbances Nose, mouth and throat: no dry mouth, no dysphagia, no mouth pain, no nasal congestion, no nasal discharge, no neck pain, no sinus pain, no sore throat - Cardiovascular Cardiovascular ROS IM: no chest pain, no diaphoresis, no dyspnea, no edema, no lightheadedness, no palpitations, no syncope - Respiratory Respiratory: no cough, no dyspnea, no dyspnea on exertion, no wheezing, no chest congestion - Gastrointestinal Gastrointestinal: no abdominal pain, no change in bowel habits, no constipation , no diarrhea, no heartburn, no hematemesis, no hematochezia, no melena, no nausea, no vomiting - Genitourinary Genitourinary: no difficulty urinating, no dysuria, no hematuria, no urinary frequency - Musculoskeletal Musculoskeletal ROS IM: arthralgias, joint swelling, limited range of motion, no back pain, no muscle weakness, no neck pain, no numbness, no tingling - Integumentary Integumentary IM: no erythema, no rash, no skin ulcer, no jaundice - Neurological Neurological ROS: no abnormal gait, no abnormal speech, no dizziness, no focal weakness, no headache(s), no paresthesias, no vertigo, no weakness - Psychiatric Psychiatric: no anxiety, no depression - Endocrine Endocrine IM: no cold intolerance, no fatigue, no heat intolerance, no polydipsia, no polyphagia, no polyuria - Constitutional Vitals: Temp Pulse Resp BP Pulse Ox 98.8 F 84 18 172/61 97 07/04/17 18:50 07/04/17 18:50 07/04/17 18:50 07/04/17 18:50 07/04/17 18:50 General appearance: Present: cooperative, mild distress (due to pain), A&O X 3, obese, answers questions appropriately - Head Head exam: Present: atraumatic, normocephalic - Eye Eye exam: Present: EOMI, PERRL. Absent: nystagmus, scleral icterus - ENT ENT exam: Present: mucous membranes moist, normal external ear exam, normal oropharynx - Neck Neck exam general surgery: Present: supple, trachea midline. Absent: lymphadenopathy, tenderness, thyromegaly - Respiratory Respiratory exam: Present: CTAB. Absent: accessory muscle use, rales, rhonchi, wheezes Additional comments: Normal WOB - Cardiovascular Cardiovascular exam: Present: RRR, +S1, +S2. Absent: diastolic murmur, gallop, rubs, systolic murmur Additional comments: No BLE edema - GI/Abdominal GI/Abdominal exam: Present: normal bowel sounds, soft. Absent: distended, hepatomegaly, mass, splenomegaly, tenderness - Extremities Exam Extremities exam: Present: normal capillary refill, radial pulses palpable and symmetrical. Absent: cyanotic, pedal edema Additional comments: Moderate TTP over right shoulder and right upper arm. No RUE erythema, questionable mild RUE edema relative to LUE. Patient refuses to let me evaluate RUE ROM. - Neurological Exam Neurological exam: Present: alert, CN II-XII intact, oriented X3, no focal deficits, strengths equal and symetr throughout. Absent: facial droop, speech deficit Additional comments: Unable to fully evaluate RUE due to pain. - Psychiatric Psychiatric exam: Present: normal affect, normal mood. Absent: anxious, depressed - Skin Skin exam: Present: dry, intact, warm. Absent: cyanosis, rash Internal Med - H&P Results - Labs CBC & Chem 7: 07/05/17 00:54 07/05/17 00:54 - Assessment and plan (1) Effusion of glenohumeral joint of right upper extremity Current Visit: Yes Status: Acute Assessment and plan: Admit for observation. Orthopedics consulted; appreciate input. Pain control with tylenol, norco, and oxycodone PRN. Will follow up on orthopedic recommendations. (2) Deep venous thrombosis of right upper extremity Current Visit: Yes Status: Chronic Assessment and plan: Continue home xarelto. Pain control as per above. Qualifiers: Affected thrombotic vein of extremity: unspecified vein of extremity Chronicity: chronic Qualified Code(s): I82.721 - Chronic embolism and thrombosis of deep veins of right upper extremity (3) Right upper limb pain Current Visit: Yes Status: Acute Assessment and plan: Likely secondary to a combination of right shoulder effusion and RUE DVT as per above. Pain control as per above. (4) Severe pain of right shoulder Current Visit: Yes Status: Acute Assessment and plan: Likely secondary to right shoulder effusion. Pain control as per above. (5) CML (chronic myelocytic leukemia) Current Visit: Yes Status: Chronic Assessment and plan: Keep follow up with outpatient heme/onc. (6) Multiple myeloma Current Visit: Yes Status: Chronic Assessment and plan: Keep follow up with outpatient heme/onc. Qualifiers: Multiple myeloma remission status: in remission Qualified Code(s): C90.01 - Multiple myeloma in remission (7) COPD (chronic obstructive pulmonary disease) Current Visit: Yes Status: Chronic Assessment and plan: Start albuterol nebs Q4H PRN SOB. Qualifiers: COPD type: unspecified COPD Qualified Code(s): J44.9 - Chronic obstructive pulmonary disease, unspecified (8) Diabetes Current Visit: Yes Status: Chronic Assessment and plan: Start accuchecks and moderate dose SSI QID AC/HS. Qualifiers: Diabetes mellitus type: type 2 Diabetes mellitus ferry terminal agent insulin use: with ferry terminal agent use Diabetes mellitus complication status: without complication Qualified Code(s): E11.9 - Type 2 diabetes mellitus without complications; Z79.4 - oysterman (current) use of insulin; Z79.4 - oysterman ( current) use of insulin; Z79.4 - oysterman (current) use of insulin; Z79.4 - [facility] (current) use of insulin (9) Hypertension Current Visit: Yes Status: Chronic Assessment and plan: Continue home medications. Qualifiers: Hypertension type: essential hypertension Qualified Code(s): I10 - Essential (primary) hypertension (10) Hypothyroidism Current Visit: Yes Status: Chronic Assessment and plan: Continue home medications. 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 - Time Spent With Patient Total time spent is greater than 50% in coordination of care (as documented) at patient's floor/unit and/or counseling patient: 25 - 35 minutes
[2017-07-04] MEDS: Metoprolol XL (24 HR) Succ 50 MG TAB.ER.24H PO SCH (21:54)
[2017-07-04] MEDS: Isosorbide MONOnitrate (24 HR) 60 MG TAB.ER.24H PO SCH (21:54)
[2017-07-04] MEDS: Folic Acid 1 MG TABLET PO SCH (21:55)
[2017-07-04] MEDS: amLODIPine 5 MG TABLET PO SCH (21:55)
[2017-07-04] MEDS: *HR* Rivaroxaban 15 MG TABLET PO SCH (21:56)
[2017-07-04] MEDS: Mirtazapine 15 MG TABLET PO SCH (21:56)
[2017-07-04] MEDS: VIT C PO SCH (22:01)
[2017-07-04] MEDS: SACCHAROMYCES BOULARDII 250 MG PO SCH (22:01)
[2017-07-04] MEDS: SELENIUM 200 MCG PO SCH (22:01)
[2017-07-04] MEDS: CRANBERRY FRUIT EXTRACT PO SCH (22:01)
[2017-07-04] MEDS: PROPYLENE GLYCOL OP SCH (22:02)
[2017-07-04] MEDS: PEG OP SCH (22:02)
[2017-07-04] MEDS: *HR* HYDROcodone/Acet 5/325 mg TABLET PO PRN (22:13)
[2017-07-05 01:30] LABS: Basophils # 0.1 K/mcL (0.0-0.2); Basophils % 0.6 %; Eosinophils # 0.1 K/mcL (0.0-0.6); Eosinophils % 1.1 %; Hematocrit 36.6 % (35.3-44.9); Immature Granulocytes % 0.4 % (0-4); Lymphocytes # 2.3 K/mcL (0.6-4.6); Lymphocytes % 23.8 %; Mean Corpuscular HGB Conc 33.1 g/dL (31.6-35.5); Mean Corpuscular Hemoglobin 28.2 pg (28.0-33.3); Mean Corpuscular Volume 85.3 fL (83.0-100.0); Mean Platelet Volume 10.9 fL (9.4-12.4); Monocytes # 1.3 K/mcL (0.0-1.3); Neutrophils # 5.9 K/mcL (1.6-8.9); Platelet Count 303 K/mcL (140-400); Red Blood Count 4.29 M/mcL (3.82-4.97); Segmented Neutrophils % 61.1 %
[2017-07-05 01:31] LABS: Hemoglobin 12.1 g/dL (11.5-15.4)
[2017-07-05 01:50] LABS: BUN/Creatinine Ratio 22 (6-26); Blood Urea Nitrogen 17 mg/dL (8-23); Calcium 10.1 mg/dL (8.6-10.3); Carbon Dioxide 22 mEq/L (23-29); Chloride 109 mEq/L (98-107); Glucose 150 mg/dL (70-105); Osmolality,Calculated 292 (280-300); Potassium 3.3 mEq/L (3.5-5.1); Sodium 139 mEq/L (136-145); eGFR For African Americans > 60 (> 60); eGFR For Non-African Americans > 60 (> 60)
[2017-07-05] MEDS: Insulin LISPRO 300 UNITS/3 ML VIAL SQ SCH ×3 (07:55→17:10)
[2017-07-05] MEDS: NILOTINIB HCL PO SCH ×2 (07:55→19:53)
[2017-07-05] MEDS: VIT C PO SCH (09:34)
[2017-07-05] MEDS: SACCHAROMYCES BOULARDII 250 MG PO SCH (09:34)
[2017-07-05] MEDS: PEG OP SCH (09:34)
[2017-07-05] MEDS: CRANBERRY FRUIT EXTRACT PO SCH (09:34)
[2017-07-05] MEDS: PROPYLENE GLYCOL OP SCH (09:34)
[2017-07-05] MEDS: SELENIUM 200 MCG PO SCH (09:34)
[2017-07-05] MEDS: Isosorbide MONOnitrate (24 HR) 60 MG TAB.ER.24H PO SCH (09:35)
[2017-07-05] MEDS: amLODIPine 5 MG TABLET PO SCH ×2 (09:36→21:06)
[2017-07-05] MEDS: Metoprolol XL (24 HR) Succ 50 MG TAB.ER.24H PO SCH ×2 (09:36→21:06)
[2017-07-05] MEDS: Folic Acid 1 MG TABLET PO SCH (09:36)
[2017-07-05] MEDS: *HR* Rivaroxaban 15 MG TABLET PO SCH (09:36)
[2017-07-05] MEDS ORDERED: *HR* LORazepam 2 MG/ML VIAL IVP ONE (10:30)
[2017-07-05] MEDS: *HR* HYDROcodone/Acet 5/325 mg TABLET PO PRN ×2 (10:43→21:17)
--- NOTE | 2017-07-05 12:13 | Orthopedics Progress Note ---
Date of Encounter: 07/05/17 Time of Encounter: 08:00 - Assessment and Plan (1) Effusion of glenohumeral joint of right upper extremity Current Visit: Yes Status: Acute IMPRESSION: 1. Severe tendinosis with greater than 50% high-grade bursal surface tearing or possible intertendinous ganglion formation of supraspinatus between the critical zone and footplate versus near complete full thickness tearing of supraspinatus with possible retraction of the torn fibers measuring up to 2.1 cm. Moderate atrophy and fatty degeneration of supraspinatus. Marrow edema at the superolateral humeral head may be reactive related to the adjacent overlying supraspinatus tendon pathology. Debris in the subacromial subdeltoid bursa may represent a moderate to severe associated bursitis. 2. Less than 50% partial-thickness interstitial, articular surface and bursal surface tearing of the anterior superior insertional fibers of infraspinatus. Severe infraspinatus atrophy and fatty degeneration. 3. Moderate subscapularis tendinopathy. 4. Moderate atrophy and fatty degeneration of teres minor. This can be seen with quadrilateral space syndrome. No obvious lesion identified in the quadrilateral space; however. 5. Moderate diffuse labral degeneration. Mild glenohumeral chondromalacia. 6. Enlargement and thickening of the inferior glenohumeral ligament. 7. Mild degenerative changes of the right AC joint. 8. Large loose body or conglomerate debris in the anterior subscapularis recess measuring 3.3 x 1.5 x 1.8 cm. I discussed the MRI findings in depth with the radiologist, at this time, they did not believe an aspiration was needed. Based off labs, Exam and patients report, I have discussed this case with and at this time, after reviewed MRI, plan was to aspirate bursal region of shoulder for assessment of fluid collection, likely related to RCT. However, aspiration by IR moved to 07/06 secondary to patients anticoagulation with Xarelto. Will plan to hold Xarelto today, and tomorrow AM until aspiration performed. Gram stain and cultures to be ordered if fluid is collected. I discussed my concerns in depth with the patient, including the possibility of infection versus rotator cuff pathology. will see and assess patient in the AM. Subjective Principal diagnosis: Right Shoulder Pain, effusion Interval history: Hospital Day #1 Patient in chair, comfortable. Patient denies pain to Right shoulder, and an improvement with rest. She has not had pain medication since last night. Her motion has improved to shoulder level and below. She remains weak with IR/ER. MRI schedueld for 1145 today. Mild leukocytosis improved. She received a dose of Ancef and Vancomycin in ED, but no other antibiotics. Afebrile, vitals stable. Right Shoulder: Mild swelling noted to Right shoulder - no erythema, ecchymosis or obvious deformity ROM: Limited to shoulder level and below; PROM painfree Strength unchanged NV intact. : MRI Reviewed: IMPRESSION: 1. Severe tendinosis with greater than 50% high-grade bursal surface tearing or possible intertendinous ganglion formation of supraspinatus between the critical zone and footplate versus near complete full thickness tearing of supraspinatus with possible retraction of the torn fibers measuring up to 2.1 cm. Moderate atrophy and fatty degeneration of supraspinatus. Marrow edema at the superolateral humeral head may be reactive related to the adjacent overlying supraspinatus tendon pathology. Debris in the subacromial subdeltoid bursa may represent a moderate to severe associated bursitis. 2. Less than 50% partial-thickness interstitial, articular surface and bursal surface tearing of the anterior superior insertional fibers of infraspinatus. Severe infraspinatus atrophy and fatty degeneration. 3. Moderate subscapularis tendinopathy. 4. Moderate atrophy and fatty degeneration of teres minor. This can be seen with quadrilateral space syndrome. No obvious lesion identified in the quadrilateral space; however. 5. Moderate diffuse labral degeneration. Mild glenohumeral chondromalacia. 6. Enlargement and thickening of the inferior glenohumeral ligament. 7. Mild degenerative changes of the right AC joint. 8. Large loose body or conglomerate debris in the anterior subscapularis recess measuring 3.3 x 1.5 x 1.8 cm. Findings were discussed with Sari Zapata at 1:30 pm on 07/05/2017. D/ / 07/05/2017 13:18:02 Law Bates MD / efra Interpreting Provider: Law Bates MD Objective Vital signs: Vital Signs Temp Pulse Resp BP Pulse Ox 07/05/17 10:39 98.0 F 82 18 135/68 97 07/05/17 07:55 95 07/05/17 06:46 98.2 F 74 18 142/57 95 07/05/17 04:40 98.1 F 76 18 125/68 98 07/05/17 00:59 98.4 F 81 18 131/65 98 07/04/17 18:50 98.8 F 84 18 172/61 97 07/04/17 15:25 97.8 F 89 18 172/83 98 07/04/17 15:11 19 171/77 Intake and Output 07/04/17 07/05/17 07/05/17 23:59 07:59 15:59 Intake Total 120 / 120 Balance 120 / 120 Intake: Oral 120 / 120 Other: Meal Breakfast Percent of Meal Consumed 95% # Voids 1 Weight 79.9 kg Blood Glucose* 172 145 Patient Weight 07/05/17 23:59 Weight 79.9 kg - Diagnostic Results Shoulder MRI: report reviewed, image reviewed - Labs CBC & BMP: 07/05/17 13:57 07/05/17 00:54 Labs: Abnormal lab results RDW 15.0 % (11.5-14.5) H 07/05/17 00:54 ESR 69 mm/hr (0-15) H 07/04/17 09:47 PT 14.1 Seconds (9.4-12.1) H 07/04/17 09:47 Potassium 3.3 mEq/L (3.5-5.1) L 07/05/17 00:54 Chloride 109 mEq/L (98-107) H 07/05/17 00:54 Carbon Dioxide 22 mEq/L (23-29) L 07/05/17 00:54 Glucose 150 mg/dL (70-105) H 07/05/17 00:54 POC Glucose 145 mg/dL (70-99) H 07/05/17 07:54 Consult Discharge Plan - Plan Referrals: Jeffery Lane MD [Primary Care Provider] -
[2017-07-05 14:12] LABS: Basophils # 0.1 K/mcL (0.0-0.2); Basophils % 0.8 %; Eosinophils # 0.2 K/mcL (0.0-0.6); Eosinophils % 1.8 %; Hemoglobin 11.7 g/dL (11.5-15.4); Immature Granulocytes % 0.5 % (0-4); Lymphocytes # 2.2 K/mcL (0.6-4.6); Lymphocytes % 24.4 %; Mean Corpuscular HGB Conc 32.5 g/dL (31.6-35.5); Mean Corpuscular Volume 86.1 fL (83.0-100.0); Mean Platelet Volume 10.7 fL (9.4-12.4); Monocytes # 0.9 K/mcL (0.0-1.3); Monocytes % 9.4 %; Neutrophils # 5.8 K/mcL (1.6-8.9); Nucleated Red Blood Cells 0.2 /100 WBC (0); Platelet Count 302 K/mcL (140-400); Red Blood Count 4.18 M/mcL (3.82-4.97); Red Cell Distribution Width 15.3 % (11.5-14.5); Segmented Neutrophils % 63.1 %
[2017-07-05 14:19] LABS: INR 2.1; Prothrombin Time 23.5 Seconds (9.4-12.1)
--- NOTE | 2017-07-05 16:30 | Internal Med Progress Note ---
Date of Encounter: 07/05/17 Time of Encounter: 09:25 - Assessment and plan (1) Effusion of glenohumeral joint of right upper extremity Current Visit: Yes Status: Acute Assessment and plan: Plan for right shoulder joint aspiration. MRI of the shoulder shows severe tendinosis and other degenerative changes. We will hold Xarelto in anticipation for procedure. We will update further recommendations based on results of joint aspiration. (2) Severe pain of right shoulder Current Visit: Yes Status: Acute Assessment and plan: Improved. Follow orthopedic recommendations. Pain control. (3) Multiple myeloma Current Visit: Yes Status: Chronic Assessment and plan: Patient with history of multiple myeloma. Blood counts are fairly normal at this time. Follow-up outpatient with oncology after discharge Qualifiers: Multiple myeloma remission status: in remission Qualified Code(s): C90.01 - Multiple myeloma in remission (4) Hypothyroidism Current Visit: Yes Status: Chronic Assessment and plan: Continue levothyroxine Qualifiers: Hypothyroidism type: other Qualified Code(s): E03.8 - Other specified hypothyroidism (5) COPD (chronic obstructive pulmonary disease) Current Visit: Yes Status: Chronic Assessment and plan: Not in acute exacerbation. Will place patient on bronchodilators as needed Qualifiers: COPD type: unspecified COPD Qualified Code(s): J44.9 - Chronic obstructive pulmonary disease, unspecified (6) Hypertension Current Visit: Yes Status: Chronic Assessment and plan: Well-controlled. Continue metoprolol, amlodipine and losartan Qualifiers: Hypertension type: essential hypertension Qualified Code(s): I10 - Essential (primary) hypertension (7) DVT prophylaxis Current Visit: Yes Status: Chronic Assessment and plan: Patient is on Xarelto. Will hold for planned right shoulder arthrocentesis. (8) Diabetes Current Visit: Yes Status: Chronic Assessment and plan: Blood sugars are well controlled. Continue current insulin regimen Qualifiers: Diabetes mellitus type: type 2 Diabetes mellitus termite inspector insulin use: with termite inspector use Diabetes mellitus complication status: without complication Qualified Code(s): E11.9 - Type 2 diabetes mellitus without complications; Z79.4 - MCC (current) use of insulin; Z79.4 - termite treater ( current) use of insulin; Z79.4 - MCC (current) use of insulin; Z79.4 - MCC (current) use of insulin (9) CML (chronic myelocytic leukemia) Current Visit: Yes Status: Chronic (10) Right upper limb pain Current Visit: Yes Status: Acute Assessment and plan: Likely due to combination of right upper extremity DVT and rotator cuff strain involving the right shoulder. Orthopedics following. Pain currently well controlled with oral medications. Will continue the same. 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 We will hold for planned procedure tomorrow. 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 Feels better today. Pain in right upper extremities is better controlled. Not as tender in severe as yesterday. No fever or chills overnight. - Constitutional Vitals: Temp Pulse Resp BP Pulse Ox 97.8 F 77 17 136/68 98 07/05/17 15:23 07/05/17 15:23 07/05/17 15:23 07/05/17 15:23 07/05/17 15:23 General appearance: Present: cooperative, A&O X 3, pleasant, no acute distress, obese, answers questions appropriately - Neck Neck exam general surgery: Present: supple, trachea midline. Absent: lymphadenopathy - Respiratory Respiratory exam: Present: CTAB. Absent: accessory muscle use, rales, rhonchi, wheezes - Cardiovascular Cardiovascular exam: Present: RRR, +S1, +S2. Absent: diastolic murmur, gallop, rubs, systolic murmur - GI/Abdominal GI/Abdominal exam: Present: normal bowel sounds, soft, no peritoneal signs. Absent: distended, tenderness - Extremities Exam Extremities exam: Present: warm, radial pulses palpable and symmetrical. Absent : calf tenderness, cyanotic, pedal edema Additional comments: Right shoulder nontender to my examination today. Patient does have trouble extending her shoulder. - Neurological Exam Neurological exam: Present: alert, oriented X3, no focal deficits. Absent: facial droop, speech deficit - Skin Skin exam: Present: dry, intact Internal Medicine: Result - Labs CBC & Chem 7: 04/19/18 13:57 07/05/17 00:54 Labs: Short CBC 07/05/17 07/05/17 Range/Units 00:54 13:57 WBC 9.7 9.1 (4.3-11.1) K/mcL Hgb 12.1 D 11.7 (11.5-15.4) g/dL Hct 36.6 36.0 (35.3-44.9) % Plt Count 303 302 (140-400) K/mcL Neutrophils # 5.9 5.8 (1.6-8.9) K/mcL BMP 07/05/17 00:54 Sodium 139 Potassium 3.3 L Chloride 109 H Carbon Dioxide 22 L BUN 17 Creatinine 0.77 Glucose 150 H Calcium 10.1 - ABG Interpretation ABG results: PT/INR, D-dimer PT 23.5 Seconds (9.4-12.1) H D 07/05/17 13:57 - Impressions Impressions Shoulder MRI 07/05/17 16:43 IMPRESSION: 1. Severe tendinosis with greater than 50% high-grade bursal surface tearing or possible intertendinous ganglion formation of supraspinatus between the critical zone and footplate versus near complete full thickness tearing of supraspinatus with possible retraction of the torn fibers measuring up to 2.1 cm. Moderate atrophy and fatty degeneration of supraspinatus. Marrow edema at the superolateral humeral head may be reactive related to the adjacent overlying supraspinatus tendon pathology. Debris in the subacromial subdeltoid bursa may represent a moderate to severe associated bursitis. 2. Less than 50% partial-thickness interstitial, articular surface and bursal surface tearing of the anterior superior insertional fibers of infraspinatus. Severe infraspinatus atrophy and fatty degeneration. 3. Moderate subscapularis tendinopathy. 4. Moderate atrophy and fatty degeneration of teres minor. This can be seen with quadrilateral space syndrome. No obvious lesion identified in the quadrilateral space; however. 5. Moderate diffuse labral degeneration. Mild glenohumeral chondromalacia. 6. Enlargement and thickening of the inferior glenohumeral ligament. 7. Mild degenerative changes of the right AC joint. 8. Large loose body or conglomerate debris in the anterior subscapularis recess measuring 3.3 x 1.5 x 1.8 cm. Findings were discussed with Sari Zapata at 1:30 pm on 07/05/2017. D/ / 07/05/2017 13:18:02 Law Bates MD / efra Interpreting Provider: Law Bates MD Consult Discharge Plan - Plan Referrals: Jeffery Lane MD [Primary Care Provider] -
[2017-07-05] MEDS ORDERED: Insulin LISPRO 300 UNITS/3 ML VIAL SQ SCH (21:00)
[2017-07-05] MEDS: Mirtazapine 15 MG TABLET PO SCH (21:06)
[2017-07-05] MEDS: Artificial Tears SOLN 15 ML BOTTLE OP SCH (21:08)
[2017-07-06 06:56] LABS: Basophils # 0.1 K/mcL (0.0-0.2); Basophils % 0.6 %; Eosinophils # 0.3 K/mcL (0.0-0.6); Eosinophils % 2.6 %; Hemoglobin 11.3 g/dL (11.5-15.4); Immature Granulocytes % 0.4 % (0-4); Lymphocytes # 1.9 K/mcL (0.6-4.6); Lymphocytes % 20.1 %; Mean Corpuscular HGB Conc 32.3 g/dL (31.6-35.5); Mean Corpuscular Hemoglobin 27.5 pg (28.0-33.3); Mean Corpuscular Volume 85.2 fL (83.0-100.0); Mean Platelet Volume 10.6 fL (9.4-12.4); Monocytes % 10.5 %; Neutrophils # 6.3 K/mcL (1.6-8.9); Platelet Count 290 K/mcL (140-400); Red Blood Count 4.11 M/mcL (3.82-4.97); Red Cell Distribution Width 15.3 % (11.5-14.5); Segmented Neutrophils % 65.8 %
[2017-07-06 07:02] LABS: INR 1.2; Prothrombin Time 13.2 Seconds (9.4-12.1)
[2017-07-06 07:15] LABS: BUN/Creatinine Ratio 24 (6-26); Blood Urea Nitrogen 17 mg/dL (8-23); Carbon Dioxide 21 mEq/L (23-29); Chloride 110 mEq/L (98-107); Glucose 133 mg/dL (70-105); Osmolality,Calculated 289 (280-300); Potassium 3.7 mEq/L (3.5-5.1); Sodium 138 mEq/L (136-145); eGFR For African Americans > 60 (> 60); eGFR For Non-African Americans > 60 (> 60)
[2017-07-06] MEDS: NILOTINIB HCL PO SCH (08:21)
--- NOTE | 2017-07-06 08:25 | Orthopedics Progress Note ---
Date of Encounter: 07/06/17 Time of Encounter: 08:24 Subjective Principal diagnosis: Right Shoulder Pain, effusion Interval history: Patient evaluated for right shoulder pain. Patient scheduled for a right shoulder aspiration by interventional radiology today. On exam no swelling no erythema pain-free motion of the right shoulder. Patient has an MRI which shows fluid rotator cuff tear low concern for infection will monitor the results of the aspiration. Most likely patient will follow-up as outpatient. Objective Vital signs: Vital Signs Temp Pulse Resp BP Pulse Ox 07/06/17 07:06 98.4 F 78 15 123/70 98 07/06/17 00:12 97.7 F 68 16 142/71 97 07/05/17 19:56 95 07/05/17 19:46 98.6 F 82 18 149/74 95 07/05/17 15:23 97.8 F 77 17 136/68 98 07/05/17 10:39 98.0 F 82 18 135/68 97 Intake and Output 07/05/17 07/06/17 07/06/17 23:59 07:59 15:59 Intake Total 240 / 240 200 / 200 Balance 240 / 240 200 / 200 Intake: Oral 240 / 240 200 / 200 Other: Meal Dinner Percent of Meal Consumed 100% # Voids 1 Blood Glucose* 204 134 - Labs CBC & BMP: 07/06/17 06:33 07/06/17 06:33 Labs: Abnormal lab results Hgb 11.3 g/dL (11.5-15.4) L 07/06/17 06:33 Hct 35.0 % (35.3-44.9) L 07/06/17 06:33 MCH 27.5 pg (28.0-33.3) L 07/06/17 06:33 RDW 15.3 % (11.5-14.5) H 07/06/17 06:33 Nucleated RBCs/100 WBC 0.2 /100 WBC (0) H 07/05/17 13:57 ESR 60 mm/hr (0-15) H 07/05/17 13:56 PT 13.2 Seconds (9.4-12.1) H 07/06/17 06:33 Chloride 110 mEq/L (98-107) H 07/06/17 06:33 Carbon Dioxide 21 mEq/L (23-29) L 04/20/18 06:33 Glucose 133 mg/dL (70-105) H 07/06/17 06:33 POC Glucose 134 mg/dL (70-99) H 07/06/17 07:08 Consult Discharge Plan - Plan Referrals: Jeffery Lane MD [Primary Care Provider] -
[2017-07-06] MEDS: Isosorbide MONOnitrate (24 HR) 60 MG TAB.ER.24H PO SCH (09:26)
[2017-07-06] MEDS: Metoprolol XL (24 HR) Succ 50 MG TAB.ER.24H PO SCH (09:26)
[2017-07-06] MEDS: amLODIPine 5 MG TABLET PO SCH (09:27)
[2017-07-06] MEDS: Folic Acid 1 MG TABLET PO SCH (09:27)
[2017-07-06] MEDS: SELENIUM 200 MCG PO SCH (09:28)
[2017-07-06] MEDS: VIT C PO SCH (09:28)
[2017-07-06] MEDS: Artificial Tears SOLN 15 ML BOTTLE OP SCH (09:28)
[2017-07-06] MEDS: SACCHAROMYCES BOULARDII 250 MG PO SCH (09:28)
[2017-07-06] MEDS: CRANBERRY FRUIT EXTRACT PO SCH (09:28)
[2017-07-06] MEDS: Insulin LISPRO 300 UNITS/3 ML VIAL SQ SCH ×2 (09:29→12:21)
--- NOTE | 2017-07-06 10:17 | Electrocardiograph Report ---
[place] [employer] Test Date: 2017-07-04 Pat Name: Adriana Sanchez Department: 103 Room: [facility] Gender: F [employer]: : 1940 Requested By: Toni Alarcon Order Number: [id number] Reading MD: Olayinka Roblero Measurements Intervals [place] Rate: 77 P: 21 MI: 167 QRS: 6 QRSD: 102 T: 6 QT: 389 QTc: 421 Interpretive Statements SINUS RHYTHM wnl Electronically Signed On 07-06-2017 10:16:22 EDT by Olayinka Roblero
[2017-07-06 12:04] VITALS: BP 124/63
--- NOTE | 2017-07-06 13:06 | Event Note ---
Date of Encounter: 07/06/17 Time of Encounter: 12:53 Discussed with patient plan. She and spouse state they are frustrated and concerned as they do not want to come back into the hospital again for per patient this same problem of her right shoulder. She is right hand dominant and is requesting her shoulder be fixed as soon as possible. Explained that this is done as an outpatient procedure as it is not considered urgent though I understand her concerns regarding pain and loss of use of right arm. Discussed that she needs to see her PCP and Cancer providers regarding h/o blood clots and cancer. Discussed that she should resume Xarelto at home and before surgery we will discuss when she should start holding it again. Discussed that she will see Dr. Guillory Sunday morning for surgical reevaluation of the right shoulder as patient states she only wants to see Dr Guillory and Sari regarding this issue. Will cancel appt with Dr. Thomas Sunday. Patient and spouse state understanding and are calm stating they are agreeable to go home today as long as she gets pain medication to last until her follow up appt with Dr. Guillory. Discussed with Dr. Arreola who is in agreement to providing pain medication through Sunday appt.
[2017-07-06] MEDS: *HR* HYDROcodone/Acet 5/325 mg TABLET PO PRN (13:29)
--- NOTE | 2017-07-06 13:36 | Discharge Summary ---
- NOTES TO OUTPATIENT PROVIDER Notes to Outpatient Provider: Patient hospitalized with right upper extremity pain in her arm and shoulder. 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 She will follow up with orthopedics for outpatient management. Orders not resulted at time of discharge: Pending orders 07/05/17 13:41 Cell Count w Diff, Body Fluid [BF] Stat Culture,Anaerobic [RM] Stat Culture,Wound [RM] Stat Gram Stain [RM] Stat 07/05/17 13:44 XR joint fluoro guided major [XR] Routine Date of Encounter: 07/06/17 Time of Encounter: 13:34 - Discharge Diagnosis (1) Right upper limb pain Priority: Primary Status: Acute (2) Effusion of glenohumeral joint of right upper extremity Priority: Secondary Status: Acute (3) Severe pain of right shoulder Priority: Secondary Status: Acute (4) Multiple myeloma Priority: Secondary Status: Chronic Qualifiers: Multiple myeloma remission status: in remission Qualified Code(s): C90.01 - Multiple myeloma in remission (5) Hypothyroidism Priority: Secondary Status: Chronic Qualifiers: Hypothyroidism type: other Qualified Code(s): E03.8 - Other specified hypothyroidism (6) COPD (chronic obstructive pulmonary disease) Priority: Secondary Status: Chronic Qualifiers: COPD type: unspecified COPD Qualified Code(s): J44.9 - Chronic obstructive pulmonary disease, unspecified (7) Hypertension Priority: Secondary Status: Chronic Qualifiers: Hypertension type: essential hypertension Qualified Code(s): I10 - Essential (primary) hypertension (8) DVT prophylaxis Priority: Secondary Status: Chronic (9) Diabetes Priority: Secondary Status: Chronic Qualifiers: Diabetes mellitus type: type 2 Diabetes mellitus buttermaker helper insulin use: with buttermaker helper use Diabetes mellitus complication status: without complication Qualified Code(s): E11.9 - Type 2 diabetes mellitus without complications; Z79.4 - watermelon inspector (current) use of insulin; Z79.4 - watermelon inspector ( current) use of insulin; Z79.4 - watermelon inspector (current) use of insulin; Z79.4 - FDC (current) use of insulin (10) CML (chronic myelocytic leukemia) Priority: Secondary Status: Chronic (11) Deep venous thrombosis of right upper extremity Priority: Secondary Status: Chronic Qualifiers: Affected thrombotic vein of extremity: unspecified vein of extremity Chronicity: chronic Qualified Code(s): I82.721 - 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 Sanchez is a 76 year old female Patient with history of multiple myeloma, leukemia, right upper extremity DVT recently diagnosed was hospitalized with right upper extremity pain in her arm and shoulder. 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 Initial CT scan in the ER showed joint effusion in the right shoulder. As such orthopedics was consulted. Given the possibility of septic arthritis, patient was started on IV antibiotics. However lab work did not show any signs of septic arthritis. MRI of the shoulder was then and is not showing significant amount of joint fluid but patient did have chronic degenerative changes. As such orthopedics does not recommend any further management in the hospital. She will follow up with orthopedics for outpatient management. Discharge discussed with: patient, nurse, process consultant - Time Spent with Patient Total time spent providing and/or coordinating discharge services: Less than 30 minutes (25 min) - Discharge Medications Prescriptions: HYDROcodone/Acet 5/325 mg [[place] 5-325 mg] 1 tab PO Q6HR PRN 5 Days #14 tablet PRN Reason: Moderate Pain Home Medications: Amlodipine [Norvasc] 5 mg PO BID 11/12/14 [History] Cranberry Fruit Extract/Vit C [Azo Cranberry Softgel] 1 each PO DAILY 11/12/14 [ History] Ergocalciferol (VITAMIN D2) [Drisdol (50,000 Unit)] 50,000 unit PO QWEEK [History] Exenatide Microspheres [Bydureon] 2 mg SQ FR 11/12/14 [History] Insulin LISPRO [Humalog Kwikpen U-200] 2 - 15 unit SQ ACHS PRN 11/12/14 [History ] Levothyroxine [Synthroid] 125 mcg PO DAILY 11/12/14 [History] Nitroglycerin 0.4 mg SL Q5MIN PRN 11/12/14 [History] Rosuvastatin [Crestor] 40 mg PO HS 11/12/14 [History] Saccharomyces Boulardii [Probiotic] 250 mg PO DAILY 11/12/14 [History] Losartan Potassium [Cozaar] 100 mg PO DAILY 05/22/16 [History] Metformin HCl [Metformin HCl ER] 500 mg PO DAILY 05/22/16 [History] Metoprolol XL (24 HR) Succ [Toprol Xl] 100 mg PO BID 05/22/16 [History] Montelukast [Singulair] 10 mg PO DAILY 05/22/16 [History] Selenium 200 mcg PO DAILY 05/22/16 [History] Potassium Chloride [Klor-Con] 25 meq PO BID 07/10/16 [History] Acyclovir [Zovirax] 400 mg PO BID 09/06/16 [History] Furosemide [Lasix] 40 mg PO DAILY PRN 09/06/16 [History] Oxygen 2.5 l .ROUTE AD 09/06/16 [History] Folic Acid 1 mg PO DAILY #90 tablet 03/27/17 [Rx] Nilotinib HCl [Tasigna] 1 tab PO BID #180 capsule 05/14/17 [Rx] Docusate [Colace] 100 mg PO BID #60 capsule 06/06/17 [Rx] Mirtazapine [Remeron] 15 mg PO HS #30 tablet 06/06/17 [Rx] Albuterol Sulfate [Albuterol Inhaler] 1 puff IH Q4HR PRN 06/16/17 [History] Isosorbide MONOnitrate [Isosorbide Mononitrate ER] 120 mg PO DAILY 06/16/17 [ History] Propylene Glycol/Peg 400 [Systane Gel Eye Drops] 10 ml OP BID 06/16/17 [History] Rivaroxaban [Xarelto] 15 mg PO BID 21 Days #42 tablet 06/18/17 [Rx] Acetaminophen [Tylenol] 650 mg PO Q6HR PRN tablet 07/06/17 [Rx] HYDROcodone/Acet 5/325 mg [[place] 5-325 mg] 1 tab PO Q6HR PRN 5 Days #14 tablet 07/06/17 [Rx] Allergies/Adverse Reactions: 3 Allergy/AdvReac Type Severity Reaction Status Date / Time No Known Allergies Allergy Verified 06/27/17 13:30 Date of admission: 07/04/17 14:54 Primary care physician: Jeffery Lane MD Consults: 07/04/17 16:15 Consult to Nutrition [CONS] Routine Comment: Consulting Provider: NUTRITION Reason for Dietary Consult: MST Score Discharging clinician: Carlos Arreola Anticipated date of discharge: 07/06/17 - Constitutional Vitals: Temp Pulse Resp BP Pulse Ox 98.5 F 89 18 124/63 96 07/06/17 12:00 07/06/17 12:00 07/06/17 12:00 07/06/17 12:00 07/06/17 12:00 General appearance: Present: cooperative, A&O X 3, pleasant, no acute distress, obese, answers questions appropriately - Respiratory Respiratory exam: Present: CTAB. Absent: accessory muscle use, rales, rhonchi, wheezes - Cardiovascular Cardiovascular exam: Present: RRR, +S1, +S2. Absent: diastolic murmur, gallop, rubs, systolic murmur - GI/Abdominal GI/Abdominal exam: Present: normal bowel sounds, soft, no peritoneal signs. Absent: distended, tenderness - Extremities Exam Extremities exam: Present: tenderness (right arm), warm, radial pulses palpable and symmetrical. Absent: calf tenderness, cyanotic, pedal edema - Neurological Exam Neurological exam: Present: CN II-XII intact, oriented X3, no focal deficits. Absent: facial droop, speech deficit - Patient Status Disposition: Home, Self-Care Condition: Fair Functional capacity at discharge: independent ambulation Overall status at discharge: patient is progressing back to baseline - Discharge Instructions Instructions: Hypothyroidism (DC), Diabetes Mellitus Type 2 in Adults (DC), Chronic Hypertension (DC) Follow Up With: Jeffery Lane MD [Primary Care Provider] - (in 1-2 weeks) Additional Instructions: Follow-up with orthopedics as scheduled on Sunday - Diet and Activity Activity: increase activity as tolerated Diet: advance to your usual diet, diabetic diet, low fat, low cholesterol, low salt diet
== END 2017-07-06 16:01 | disposition home or self-care (01) ==
LOC: EMEROO 09:01 → 3NENU 09:01 → SUATTDRO 14:54 → 3NENU 15:13
PROVIDERS: ADMIT Family Medicine; ATTEND Internal Medicine